=== PATIENT | female | born 1950 | race Caucasian/White ===

== ENCOUNTER 2016-06-05 09:17 | Inpatient (IN) | payer MEDICARE ==
[~2016-06-05] VITALS: Ht 170.2 cm; Wt 111.6 kg
[~2016-06-05 09:17] MED LIST: AMLO5TAB2 PO; ATOR20TA58 PO; BACL10TA PO; CARB200T4 PO; CEPH-264 PO; CLON0.5T3 PO; CLON1TAB3; GLAT20SY SQ; GLAT40SY SQ; HYDR-2666 PO; INDA1.25; INDA1.25 PO; INSU100I17 SQ; INSU100I27 SQ; INSU100V8 SQ; LACO150T PO; LEVO125T5 PO; LOSA100T6 PO; MECL25TA3 PO; OMEP20CA9 PO; OXYB5TAB7 PO; PRED-220 PO
--- NOTE | 2016-06-05 09:31 | PHYS DOC ---
Past Medical History Past Medical History: Anxiety, Diabetes-Type II, GERD, High Cholesterol, Hypertension, Hypothyroid, Other Additional Past Medical Histor: GRAVES, mULTIPLE SCLEROSIS, Past Surgical History: , Other Additional Past Surgical Histo: THYROID RADIATION, shoulder surgery Alcohol Use: Rarely Drug Use: None Adult General Chief Complaint Chief Complaint: COUGH HPI HPI Patient is a 66 year old female who presents with cough and a fever. She states yesterday she started feeling feverish having a dry hacking cough and body aches. She denies any shortness of breath, chest pain or abdominal pain or nausea vomiting. She states she did get the flu shot and a pneumonia shot this year. She states she has been taking Tylenol prior to arrival. Review of Systems Review of Systems Constitutional: Positive for fever [] Eyes: Denies change in visual acuity, redness, or eye pain [] HENT: Denies nasal congestion or sore throat [] Respiratory: Denies any shortness of breath, positive for cough [] Cardiovascular: No additional information not addressed in HPI [] GI: Denies abdominal pain, nausea, vomiting, bloody stools or diarrhea [] : Denies dysuria or hematuria [] Musculoskeletal: Denies back pain or joint pain [] Integument: Denies rash or skin lesions [] Neurologic: Denies headache, focal weakness or sensory changes [] Endocrine: Denies polyuria or polydipsia [] Current Medications Current Medications Current Medications Medications (Trade) Dose Ordered Sig/Emely Start Time Stop Time Status Last Admin Dose Admin Potassium Chloride (KCl Premix 10meq) 100 ml @ 100 mls/hr Q1H 06/05/16 10:00 06/05/16 13:59 06/05/16 11:55 100 MLS/HR Allergies Allergies Allergies Coded Allergies Type Severity Reaction Last Updated Verified No Known Drug Allergies 12/01/13 No Physical Exam Physical Exam Constitutional: Well developed, well nourished, no acute distress, non-toxic appearance. [] HENT: Normocephalic, atraumatic, bilateral external ears normal, oropharynx moist, no oral exudates, nose normal. [] Eyes: PERRLA, EOMI, conjunctiva normal, no discharge. [] Neck: Normal range of motion, no tenderness, supple, no stridor. [] Cardiovascular:Heart rate regular rhythm, no murmur [] Lungs & Thorax: Bilateral breath sounds clear to auscultation [] Abdomen: Bowel sounds normal, soft, no tenderness, no masses, no pulsatile masses. [] Skin: Warm, dry, no erythema, no rash. [] Back: No tenderness, no CVA tenderness. [] Extremities: No tenderness, no cyanosis, no clubbing, ROM intact, no edema. [] Neurologic: Alert and oriented X 3, normal motor function, normal sensory function, no focal deficits noted. [] Psychologic: Affect normal, judgement normal, mood normal. [] Current Patient Data Vital Signs Vital Signs Date Time Temp Pulse Resp B/P Pulse Ox O2 Delivery O2 Flow Rate FiO2 06/05/16 09:17 100.1 84 18 122/58 94 Room Air 100.1 Lab Values Laboratory Tests Test 06/05/16 09:35 White Blood Count 14.3x10^3/uL (4.0-11.0) H Red Blood Count 3.82x10^6/uL (3.50-5.40) Hemoglobin 11.7g/dL (12.0-15.5) L Hematocrit 34.4% (36.0-47.0) L Mean Corpuscular Volume 90fL (79-100) Mean Corpuscular Hemoglobin 31pg (25-35) Mean Corpuscular Hemoglobin Concent 34g/dL (31-37) Red Cell Distribution Width 13.6% (11.5-14.5) Platelet Count 170x10^3/uL (140-400) Neutrophils (%) (Auto) 85% (31-73) H Lymphocytes (%) (Auto) 9% (24-48) L Monocytes (%) (Auto) 5% (0-9) Eosinophils (%) (Auto) 0% (0-3) Basophils (%) (Auto) 1% (0-3) Neutrophils # (Auto) 12.2x10^3uL (1.8-7.7) H Lymphocytes # (Auto) 1.3x10^3/uL (1.0-4.8) Monocytes # (Auto) 0.7x10^3/uL (0.0-1.1) Eosinophils # (Auto) 0.0x10^3/uL (0.0-0.7) Basophils # (Auto) 0.1x10^3/uL (0.0-0.2) Segmented Neutrophils % 80% (35-66) H Band Neutrophils % 12% (0-9) H Lymphocytes % 5% (24-48) L Monocytes % 3% (0-10) Platelet Estimate Adequate (ADEQUATE) Ovalocytes Few Sodium Level 137mmol/L (136-145) Potassium Level 2.7mmol/L (3.5-5.1) *L Chloride Level 99mmol/L (98-107) Carbon Dioxide Level 31mmol/L (21-32) Anion Gap 7 (6-14) Blood Urea Nitrogen 24mg/dL (7-20) H Creatinine 1.1mg/dL (0.6-1.0) H Estimated GFR (Cockcroft-Gault) 49.7 Glucose Level 165mg/dL (70-99) H Calcium Level 8.7mg/dL (8.5-10.1) Total Bilirubin 0.5mg/dL (0.2-1.0) Direct Bilirubin 0.1mg/dL (0.0-0.2) Aspartate Amino Transferase (AST) 53U/L (15-37) H Alanine Aminotransferase (ALT) 60U/L (14-59) H Alkaline Phosphatase 140U/L (46-116) H Total Protein 6.3g/dL (6.4-8.2) L Albumin 2.9g/dL (3.4-5.0) L Influenza Type A Antigen Negative (NEGATIVE) Influenza Type B Antigen Negative (NEGATIVE) Laboratory Tests 06/05/16 09:35 Laboratory Tests 06/05/16 09:35 EKG EKG [] Radiology/Procedures Radiology/Procedures [facility] [address] [place], [place] [id number] IMAGING REPORT Signed PATIENT: ISAIAS LAL ACCOUNT: [id number] : 1950 LOCATION: ER AGE: 66 SEX: F EXAM STATUS: REG ER ORD. PHYSICIAN: BENITA MANCERA MD REASON: fever,cough since yesterday. PROCEDURE: CHEST PA & LATERAL Indication fever cough. Heart size is at the upper limits of normal. There is no congestive heart failure.. There is a focus of increased density lateral to the right heart border, on the PA view, which is probably secondary to overlying soft tissues. Pneumonia is felt less likely. No corresponding abnormality is seen on the lateral image. There is a suggested parenchymal mass in the right upper lobe measuring approximately 2 cm in greatest dimension. Primary malignancy accounting for the appearance is not excluded. Follow-up imaging should be considered. The left lung is clear. There is no pleural fluid. IMPRESSION: Suspect 2 cm parenchymal mass in the right upper lobe. Primary malignancy not excluded. If old films are not available for comparison purposes establishing stability CT should be considered. A definite acute finding in the chest is not seen DICTATED and SIGNED BY: LEXIE LINARES MD DATE: 06/05/16 1107 CC: BENITA MANCERA MD; JESSIE COPELAND Jr, MD ~ Impressions: Hypokalemia Fever Cough Course & Med Decision Making Course & Med Decision Making Pertinent Labs and Imaging studies reviewed. (See chart for details) She presents with a fever, influenza negative, chest x-ray read out as nonacute. Blood cultures obtained and the patient is being admitted for her hypokalemia and pulmonary consultation to the hospitalist. Dragon Disclaimer Dragon Disclaimer This electronic medical record was generated, in whole or in part, using a voice recognition dictation system. Departure Departure Impression: Primary Impression: Hypokalemia Additional Impression: Cough Disposition: ADMITTED INPATIENT Admitting Physician: Rhonda Bills Condition: STABLE Referrals: JESSIE COPELAND Jr, MD (PCP) Problem Qualifiers BENITA MANCERA MD Jun 05, 2016 09:31
[2016-06-05 09:46] LABS: BASO # 0.1 x10^3/uL (0.0-0.2); BASO % 1 % (0-3); EOS % 0 % (0-3); HEMATOCRIT 34.4 % (36.0-47.0); HEMOGLOBIN 11.7 g/dL (12.0-15.5); LYMPH # 1.3 x10^3/uL (1.0-4.8); LYMPH % 9 % (24-48); MEAN CORPUSCULAR HEMOGLOBIN 31 pg (25-35); MEAN CORPUSCULAR HGB CONC 34 g/dL (31-37); MEAN CORPUSCULAR VOLUME 90 fL (79-100); MONO % 5 % (0-9); NEUT % 85 % (31-73); PLATELET COUNT 170 x10^3/uL (140-400); RED BLOOD COUNT 3.82 x10^6/uL (3.50-5.40); RED CELL DISTRIBUTION WIDTH 13.6 % (11.5-14.5); WHITE BLOOD COUNT 14.3 x10^3/uL (4.0-11.0)
[2016-06-05 10:12] LABS: OBC FLU VALID
[2016-06-05 10:13] LABS: ALBUMIN 2.9 g/dL (3.4-5.0); CALCIUM 8.7 mg/dL (8.5-10.1); CREATININE 1.1 mg/dL (0.6-1.0); DIRECT BILIRUBIN 0.1 mg/dL (0.0-0.2); GFR 49.7; TOTAL BILIRUBIN 0.5 mg/dL (0.2-1.0); TOTAL PROTEIN 6.3 g/dL (6.4-8.2)
[2016-06-05 10:14] LABS: POTASSIUM 2.7 mmol/L (3.5-5.1)
[2016-06-05 11:45] LABS: OVALOCYTES FEW; PLT ESTIMATE ADEQUATE (ADEQUATE)
--- NOTE | 2016-06-05 11:45 | RAD ---
Indication fever cough. Heart size is at the upper limits of normal. There is no congestive heart failure.. There is a focus of increased density lateral to the right heart border, on the PA view, which is probably secondary to overlying soft tissues. Pneumonia is felt less likely. No corresponding abnormality is seen on the lateral image. There is a suggested parenchymal mass in the right upper lobe measuring approximately 2 cm in greatest dimension. Primary malignancy accounting for the appearance is not excluded. Follow-up imaging should be considered. The left lung is clear. There is no pleural fluid. IMPRESSION: Suspect 2 cm parenchymal mass in the right upper lobe. Primary malignancy not excluded. If old films are not available for comparison purposes establishing stability CT should be considered. A definite acute finding in the chest is not seen
[2016-06-05] MEDS: POTASSIUM CHLORIDE 10MEQ 100 ML IV SCH ×4 (11:55→17:00)
[2016-06-05] MEDS ORDERED: IBUPROFEN 800 MG TABLET. PO ONE (12:57)
[2016-06-05] MEDS ORDERED: IBUPROFEN 600 MG TABLET. PO ONE (13:00)
--- NOTE | 2016-06-05 14:55 | PDOC ---
Provider Note Provider Note dictated fever, viral syndrome RUL mass/ RLL infiltrate ct chest BAY TURNER MD Jun 05, 2016 14:55
[2016-06-05 15:00] VITALS: BP 150/61
[2016-06-05] MEDS ORDERED: INSU100V13 SQ ×2 (15:21)
--- NOTE | 2016-06-05 15:23 | CONS ---
DATE OF CONSULTATION: ATTENDING PHYSICIAN: Dr. Lyn Garcia. REASON FOR CONSULTATION: Fever, abnormal chest x-ray. HISTORY OF PRESENT ILLNESS: The patient is a 66-year-old female who has no significant history of tobacco use. She has history of multiple sclerosis and Graves disease. She presented to the hospital complaining of high grade fever of 101 degrees Fahrenheit. She had a mild cough which was productive of clear sputum. She had some mild shortness of breath. She was screened for influenza and it was negative. She was seen in the Emergency Room and because of her high grade fever, she was hospitalized. T-max is 101.7 as of now. I have reviewed patient's chest x-ray, which was done today. There is a nodular density in the right upper lobe and there is also mild infiltrates seen in the right lower lobe. There is no old x-ray available in the last 1 year. Consultation requested for further evaluation and management. The patient says that she does not have any weight loss and there is no significant tobacco history. PAST MEDICAL HISTORY: Significant for history of diabetes, anxiety, GERD, dyslipidemia, hypertension, hypothyroidism, Graves disease, and multiple sclerosis. PAST SURGICAL HISTORY: Shoulder surgery. ALLERGIES: None. MEDICATIONS: All reviewed as listed in the MRAD REVIEW OF SYSTEMS: Twelve-point systems obtained. Pertinent positives discussed in my history of present illness, otherwise noncontributory. All systems that were negative were reviewed as well. ALLERGIES: None. FAMILY HISTORY: Noncontributory lungs. SOCIAL HISTORY: Nonsmoker. PHYSICAL EXAMINATION: VITAL SIGNS: On examination, T-max of 101.7, blood pressure was markedly high 197/77, pulse ox 98% on 2 liters. NECK: Supple. LUNGS: Show diminished breath sounds. No crackles, no wheezes. CARDIOVASCULAR: Regular rate and rhythm. ABDOMEN: Soft, obese. EXTREMITIES: There is a soft cast on the left foot and trace pitting edema on the right. LABORATORY DATA: Reviewed. Influenza screen is negative. Chemistries with a potassium of 2.7, BUN 24, creatinine 1.1. White cell count 14.3. IMPRESSION: 1. High grade fever. Suspect most likely viral syndrome. 2. Abnormal chest x-ray with a nodule in the right upper lobe and hazy infiltrate in the right lower lobe. No old x-rays available for comparison. She is a nonsmoker with no constitutional symptoms of malignancy. We will obtain noncontrast CT chest for further evaluation. 3. Influenza negative. 4. Hypokalemia, being corrected. 5. Leukocytosis, would consider adding empiric antibiotic and review CT chest findings. 6. Mild renal insufficiency, suspect due to dehydration. RECOMMENDATIONS: 1. Continue with present oxygen. 2. Add empiric antibiotics. 3. Follow blood culture results. 4. CT chest without contrast to better assess for pneumonia in the right lower lobe and mass in the right upper lobe. 5. Bronchodilators p.r.n. 6. Follow potassium levels per PCP. 7. Discussed with patient's mother and we will follow along with you. Further recommendations to follow. BAY TURNER MD DR: LINDSEY/amee JOB#: [id number] / [id number] FRANCISCO
--- NOTE | 2016-06-05 16:33 | RAD ---
Chest CT without contrast Clinical indications: Lung mass. Technique: Noncontrast helical CT scanning of the chest was performed. Without contrast, the sensitivity to detect organ pathology is decreased. PQRS Compliance Statement: One or more of the following individualized dose reduction techniques were utilized for this examination: 1. Automated exposure control 2. Adjustment of the mA and/or kV according to patient size 3. Use of iterative reconstruction technique Comparison: Chest x-ray dated June 05, 2016. No previous chest CT available. Findings: No axillary lymphadenopathy is seen. There is an azygos lymph node measuring 8 mm. Evaluation for hilar lymphadenopathy is difficult without IV contrast. There is a mass or nodular infiltrate within the medial aspect of the right upper lobe. It extends along the medial aspect of the right upper lobe and the lateral border of the upper right mediastinum to the right hilum. Therefore, measurements are difficult without IV contrast to separate from hilar vessels. However, it measures at least 3.9 cm in vertical dimension and 2.6 cm in transverse dimension and 2.5 cm in AP dimension. There is a spiculated mass within the superior segment of the right lower lobe which measures 2.0 cm. There is a consolidative infiltrate with air bronchograms involving the anterior basal segment of the right lower lobe extending to the fissure. Small ill-defined subcentimeter lung nodules are seen within the lateral aspect of the right upper lobe seen best on images 16 through 19. The left lung field is clear. No pleural effusion or pneumothorax is seen. The proximal bronchial tree is patent. No focal aneurysmal dilatation of the thoracic aorta is seen. The heart size is at the upper limits of normal. No significant pericardial effusion is seen. Calcified atheromatous disease of the coronary arteries is evident. No adrenal mass is seen. No osteolytic process is seen. IMPRESSION: Nodular lung infiltrate or mass within the medial aspect of the right upper lobe abutting against the lateral aspect of the upper right mediastinum extending to the right hilum. This could represent a neoplasm or infection. Small subcentimeter lung nodules are seen laterally within the right upper lobe. 2 cm spiculated lesion within the superior segment of the right lower lobe which may represent a neoplasm. Air bronchograms with infiltrate present within the anterior basal segment of the right lower lobe adjacent to the fissure. This may represent pneumonia. No significantly enlarged thoracic lymphadenopathy is seen. Calcified atheromatous disease of the coronary arteries.
[2016-06-05] MEDS ORDERED: INSULIN ASPART 300 UNITS/3 ML INSULN.PEN SQ ONE (16:45)
[2016-06-05] MEDS ORDERED: MECLIZINE HCL 12.5 MG TABLET. PO PRN (16:45)
[2016-06-05] MEDS ORDERED: DEXTROSE 50% 25 GM / 50ML DISP.SYRIN. IV PRN (16:45)
[2016-06-05] MEDS ORDERED: ACETAMINOPHEN 650 MG SUPP.RECT. PR PRN (16:45)
[2016-06-05] MEDS: ACETAMINOPHEN 325 MG TABLET. PO PRN (17:39)
[2016-06-05] MEDS: COPAXONE 40 MG SQ SCH (17:40)
[2016-06-05] MEDS: CEFTRIAXONE SODIUM 1 GM in IV NORMAL SALINE 50ML 50 ML IV SCH (17:42)
[2016-06-05] MEDS: INSULIN ASPART 300 UNITS/3 ML INSULN.PEN SQ SCH (17:42)
[2016-06-05 19:00] VITALS: BP 110/42
[2016-06-05 19:53] LABS: BILIRUBIN,URINE NEGATIVE (NEG); GLUCOSE,URINE 500 mg/dL (NEG); NITRITE,URINE NEGATIVE (NEG); PH,URINE 5.5; PROTEIN,URINE 30 mg/dL (NEG-TRACE)
[2016-06-05 19:59] LABS: BACTERIA,URINE MANY /HPF (0-FEW); SQUAMOUS EPITHELIAL CELL,UR FEW /LPF; WBC,URINE 20-40 /HPF (0-4)
[2016-06-05 20:14] VITALS: BP 150/61
[2016-06-05] MEDS ORDERED: DOCUSATE SODIUM 100 MG CAPSULE PO PRN (20:37)
[2016-06-05] MEDS ORDERED: INSULIN DETEMIR 300 UNITS/3 ML INSULN.PEN. SQ SCH (21:00)
[2016-06-05] MEDS: ATORVASTATIN CALCIUM 20 MG TABLET PO SCH (22:10)
[2016-06-05] MEDS: OXYBUTYNIN CHLORIDE 5 MG TABLET PO SCH (22:10)
[2016-06-05] MEDS: BACLOFEN 10 MG TABLET PO SCH (22:10)
[2016-06-05] MEDS: CLONAZEPAM 0.5 MG TABLET PO SCH (22:10)
--- NOTE | 2016-06-05 22:58 | HP ---
ADMIT DATE: 06/05/2016 CHIEF COMPLAINT: Cough. HISTORY OF PRESENT ILLNESS: The patient is a pleasant 66-year-old female who has multiple medical problems including multiple scoliosis and Graves disease. She presents with cough and fevers that has been occurring for a day or so. She tried increasing her home meds, but that was not helping. I have discussed the case with the ER physician. We will admit the patient and consult Dr. Lezama. It should be noted that she is hypokalemic with potassium of 2.7. PAST MEDICAL HISTORY: Multiple scoliosis, Graves, diabetes, hyperlipidemia, hypertension, hypothyroidism, radiation to thyroid, shoulder surgery. ALLERGIES: None. FAMILY HISTORY: Hypertension. SOCIAL HISTORY: She does not drink, smoke or take drugs. MEDICATIONS: Reviewed, please refer to the MRAD. REVIEW OF SYSTEMS: GENERAL: She complains of weakness. SKIN: No bruising, hair changes or rashes. EYES: No blurred, double or loss of vision. NOSE AND THROAT: No history of nosebleeds, hoarseness or sore throat. HEART: No history of palpitations, chest pain or shortness of breath on exertion. LUNGS: She complains of cough. GASTROINTESTINAL: Denies changes in appetite, nausea, vomiting, diarrhea or constipation. GENITOURINARY: No history of frequency, urgency, hesitancy or nocturia. NEUROLOGIC: Denies history of numbness, tingling, tremor or weakness. PSYCHIATRIC: No history of panic, anxiety or depression. ENDOCRINE: No history of heat or cold intolerance, polyuria or polydipsia. EXTREMITIES: Denies muscle weakness, joint pain, pain on walking or stiffness. PHYSICAL EXAMINATION: VITAL SIGNS: Temperature 101.7, pulse ranging from 80-105, respirations 18, blood pressure ranging from ____ systolically. GENERAL: She is alert, cooperative. HEART: Normal S1, S2. LUNGS: Coarse with some wheezing. ABDOMEN: Soft, positive bowel sounds. EXTREMITIES: 1+ edema. SKIN: No rashes. PSYCHIATRIC: She is depressed. VASCULAR: Good capillary refill. ENDOCRINE: No thyromegaly. LYMPHATICS: No cervical nodes. HEMATOPOIETIC: No bruising. LABORATORY DATA: White count 14, hemoglobin 11.7, platelets 170. Electrolytes: Sodium 137, potassium 2.7, chloride 99, bicarbonate 31, BUN 24, creatinine 1.1, glucose 165. AST a little high at 53, ALT little high at 60, alkaline phosphatase a little high at 140, total protein 6.3. ASSESSMENT AND PLAN: Fever, cough, weakness, suspect viral syndrome versus possible impending flu. The patient has been admitted. Will consult Dr. Lezama. IV hydration, p.r.n. Tylenol, continue home medicines. We will consider IV antibiotics if Dr. Lezama agrees, bronchodilators, p.r.n. oxygen, replace her potassium, frequent labs. PROGNOSIS: Guarded. ERMELINDAL Perla RAMSAY DO DR: MATTHEW/amee JOB#: [id number] / [id number]
[2016-06-05 23:00] VITALS: BP 125/46
[2016-06-06 03:30] VITALS: BP 128/55
[2016-06-06 04:52] LABS: BASO % 0 % (0-3); EOS % 0 % (0-3); HEMATOCRIT 33.2 % (36.0-47.0); HEMOGLOBIN 10.8 g/dL (12.0-15.5); LYMPH # 2.2 x10^3/uL (1.0-4.8); LYMPH % 12 % (24-48); MEAN CORPUSCULAR HEMOGLOBIN 30 pg (25-35); MEAN CORPUSCULAR HGB CONC 33 g/dL (31-37); MEAN CORPUSCULAR VOLUME 92 fL (79-100); MONO % 9 % (0-9); NEUT % 79 % (31-73); PLATELET COUNT 161 x10^3/uL (140-400); RED BLOOD COUNT 3.62 x10^6/uL (3.50-5.40); RED CELL DISTRIBUTION WIDTH 13.7 % (11.5-14.5); WHITE BLOOD COUNT 19.2 x10^3/uL (4.0-11.0)
[2016-06-06 05:32] LABS: ALBUMIN 2.6 g/dL (3.4-5.0); ALBUMIN/GLOBULIN RATIO 0.7 (1.0-1.7); CALCIUM 8.6 mg/dL (8.5-10.1); CREATININE 1.1 mg/dL (0.6-1.0); GFR 49.7; TOTAL BILIRUBIN 0.5 mg/dL (0.2-1.0); TOTAL PROTEIN 6.1 g/dL (6.4-8.2)
[2016-06-06 05:44] LABS: POTASSIUM 2.8 mmol/L (3.5-5.1)
[2016-06-06] MEDS: LEVOTHYROXINE 125 MCG TABLET PO SCH (06:23)
[2016-06-06 07:00] VITALS: BP 138/44
[2016-06-06] MEDS: POTASSIUM CHLORIDE 10MEQ 100 ML IV SCH ×4 (08:20→20:51)
[2016-06-06] MEDS: PANTOPRAZOLE 40 MG TABLET. PO SCH (08:21)
[2016-06-06] MEDS: INSULIN DETEMIR 300 UNITS/3 ML INSULN.PEN. SQ SCH (08:27)
[2016-06-06] MEDS: INSULIN ASPART 300 UNITS/3 ML INSULN.PEN SQ SCH ×7 (08:27→20:58)
[2016-06-06 09:19] LABS: % EOS 1 % (0-5); PLT ESTIMATE ADEQUATE (ADEQUATE)
[2016-06-06] MEDS: CLONAZEPAM 0.5 MG TABLET PO SCH ×3 (09:51→20:53)
[2016-06-06] MEDS: OXYBUTYNIN CHLORIDE 5 MG TABLET PO SCH ×2 (09:51→20:53)
[2016-06-06] MEDS: DOCUSATE SODIUM 100 MG CAPSULE PO SCH (09:52)
[2016-06-06] MEDS: AMLODIPINE BESYLATE 5 MG TABLET PO SCH (09:52)
[2016-06-06] MEDS: LOSARTAN POTASSIUM 50 MG TABLET. PO SCH (09:52)
[2016-06-06] MEDS: BACLOFEN 10 MG TABLET PO SCH ×3 (09:52→20:54)
[2016-06-06] MEDS: INDAPAMIDE 2.5 MG TABLET PO SCH (09:53)
[2016-06-06 11:09] VITALS: BP 126/50
[2016-06-06] MEDS: ACETAMINOPHEN 325 MG TABLET. PO PRN (13:14)
[2016-06-06] MEDS: GUAIFENESIN ER 600 MG TABLET.ER PO SCH ×2 (13:14→20:53)
--- NOTE | 2016-06-06 13:38 | PDOC ---
PULMONARY PROGRESS NOTES Subjective Feeling improved, no complaints. Vitals Vital Signs Date Time Temp Pulse Resp B/P Pulse Ox O2 Delivery O2 Flow Rate FiO2 06/06/16 11:09 98.0 76 18 126/50 98 Nasal Cannula 0.5 98.0 ROS: No Nausea, No Chest Pain, No Abdominal Pain General: Alert, Oriented X4, No acute distress Lungs: Clear, Crackles, Other (Decreased BS in base ) Cardiovascular: S1, S2 Abdomen: Soft, Non-tender Neuro Exam: Alert, Oriented, Normal Speech Extremities: No Edema Skin: Warm, Dry Labs Laboratory Tests Test 06/05/16 09:35 06/05/16 12:55 06/05/16 16:00 06/05/16 18:00 White Blood Count 14.3x10^3/uL (4.0-11.0) Red Blood Count 3.82x10^6/uL (3.50-5.40) Hemoglobin 11.7g/dL (12.0-15.5) Hematocrit 34.4% (36.0-47.0) Mean Corpuscular Volume 90fL (79-100) Mean Corpuscular Hemoglobin 31pg (25-35) Mean Corpuscular Hemoglobin Concent 34g/dL (31-37) Red Cell Distribution Width 13.6% (11.5-14.5) Platelet Count 170x10^3/uL (140-400) Neutrophils (%) (Auto) 85% (31-73) Lymphocytes (%) (Auto) 9% (24-48) Monocytes (%) (Auto) 5% (0-9) Eosinophils (%) (Auto) 0% (0-3) Basophils (%) (Auto) 1% (0-3) Neutrophils # (Auto) 12.2x10^3uL (1.8-7.7) Lymphocytes # (Auto) 1.3x10^3/uL (1.0-4.8) Monocytes # (Auto) 0.7x10^3/uL (0.0-1.1) Eosinophils # (Auto) 0.0x10^3/uL (0.0-0.7) Basophils # (Auto) 0.1x10^3/uL (0.0-0.2) Segmented Neutrophils % 80% (35-66) Band Neutrophils % 12% (0-9) Lymphocytes % 5% (24-48) Monocytes % 3% (0-10) Platelet Estimate Adequate (ADEQUATE) Ovalocytes Few Sodium Level 137mmol/L (136-145) Potassium Level 2.7mmol/L (3.5-5.1) Chloride Level 99mmol/L (98-107) Carbon Dioxide Level 31mmol/L (21-32) Anion Gap 7 (6-14) Blood Urea Nitrogen 24mg/dL (7-20) Creatinine 1.1mg/dL (0.6-1.0) Estimated GFR (Cockcroft-Gault) 49.7 Glucose Level 165mg/dL (70-99) Calcium Level 8.7mg/dL (8.5-10.1) Total Bilirubin 0.5mg/dL (0.2-1.0) Direct Bilirubin 0.1mg/dL (0.0-0.2) Aspartate Amino Transf (AST/SGOT) 53U/L (15-37) Alanine Aminotransferase (ALT/SGPT) 60U/L (14-59) Alkaline Phosphatase 140U/L (46-116) Total Protein 6.3g/dL (6.4-8.2) Albumin 2.9g/dL (3.4-5.0) Influenza Type A Antigen Negative (NEGATIVE) Influenza Type B Antigen Negative (NEGATIVE) Glucose (Fingerstick) 111mg/dL (70-99) 375mg/dL (70-99) Urine Collection Type Unknown Urine Color Yellow Urine Clarity Turbid Urine pH 5.5 Urine Specific Pitcher 1.020 Urine Protein 30mg/dL (NEG-TRACE) Urine Glucose (UA) 500mg/dL (NEG) Urine Ketones (Stick) Tracemg/dL (NEG) Urine Blood Large (NEG) Urine Nitrite Negative (NEG) Urine Bilirubin Negative (NEG) Urine Urobilinogen Dipstick 1.0mg/dL (0.2 mg/dL) Urine Leukocyte Esterase Large (NEG) Urine RBC 3-5/HPF (0-2) Urine WBC 20-40/HPF (0-4) Urine Squamous Epithelial Cells Few/LPF Urine Bacteria Many/HPF (0-FEW) Urine Mucus Slight/LPF Test 06/05/16 20:49 06/06/16 04:00 06/06/16 08:03 06/06/16 11:22 Glucose (Fingerstick) 260mg/dL (70-99) 231mg/dL (70-99) 200mg/dL (70-99) White Blood Count 19.2x10^3/uL (4.0-11.0) Red Blood Count 3.62x10^6/uL (3.50-5.40) Hemoglobin 10.8g/dL (12.0-15.5) Hematocrit 33.2% (36.0-47.0) Mean Corpuscular Volume 92fL (79-100) Mean Corpuscular Hemoglobin 30pg (25-35) Mean Corpuscular Hemoglobin Concent 33g/dL (31-37) Red Cell Distribution Width 13.7% (11.5-14.5) Platelet Count 161x10^3/uL (140-400) Neutrophils (%) (Auto) 79% (31-73) Lymphocytes (%) (Auto) 12% (24-48) Monocytes (%) (Auto) 9% (0-9) Eosinophils (%) (Auto) 0% (0-3) Basophils (%) (Auto) 0% (0-3) Neutrophils # (Auto) 15.1x10^3uL (1.8-7.7) Lymphocytes # (Auto) 2.2x10^3/uL (1.0-4.8) Monocytes # (Auto) 1.7x10^3/uL (0.0-1.1) Eosinophils # (Auto) 0.1x10^3/uL (0.0-0.7) Basophils # (Auto) 0.0x10^3/uL (0.0-0.2) Segmented Neutrophils % 60% (35-66) Band Neutrophils % 11% (0-9) Lymphocytes % 14% (24-48) Monocytes % 14% (0-10) Eosinophils % 1% (0-5) Platelet Estimate Adequate (ADEQUATE) Sodium Level 134mmol/L (136-145) Potassium Level 2.8mmol/L (3.5-5.1) Chloride Level 97mmol/L (98-107) Carbon Dioxide Level 30mmol/L (21-32) Anion Gap 7 (6-14) Blood Urea Nitrogen 28mg/dL (7-20) Creatinine 1.1mg/dL (0.6-1.0) Estimated GFR (Cockcroft-Gault) 49.7 BUN/Creatinine Ratio 25 (6-20) Glucose Level 247mg/dL (70-99) Calcium Level 8.6mg/dL (8.5-10.1) Magnesium Level 2.2mg/dL (1.8-2.4) Total Bilirubin 0.5mg/dL (0.2-1.0) Aspartate Amino Transf (AST/SGOT) 65U/L (15-37) Alanine Aminotransferase (ALT/SGPT) 87U/L (14-59) Alkaline Phosphatase 172U/L (46-116) Total Protein 6.1g/dL (6.4-8.2) Albumin 2.6g/dL (3.4-5.0) Albumin/Globulin Ratio 0.7 (1.0-1.7) Laboratory Tests Test 06/05/16 16:00 06/05/16 18:00 06/05/16 20:49 06/06/16 04:00 Glucose (Fingerstick) 375mg/dL (70-99) 260mg/dL (70-99) Urine Collection Type Unknown Urine Color Yellow Urine Clarity Turbid Urine pH 5.5 Urine Specific Pitcher 1.020 Urine Protein 30mg/dL (NEG-TRACE) Urine Glucose (UA) 500mg/dL (NEG) Urine Ketones (Stick) Tracemg/dL (NEG) Urine Blood Large (NEG) Urine Nitrite Negative (NEG) Urine Bilirubin Negative (NEG) Urine Urobilinogen Dipstick 1.0mg/dL (0.2 mg/dL) Urine Leukocyte Esterase Large (NEG) Urine RBC 3-5/HPF (0-2) Urine WBC 20-40/HPF (0-4) Urine Squamous Epithelial Cells Few/LPF Urine Bacteria Many/HPF (0-FEW) Urine Mucus Slight/LPF White Blood Count 19.2x10^3/uL (4.0-11.0) Red Blood Count 3.62x10^6/uL (3.50-5.40) Hemoglobin 10.8g/dL (12.0-15.5) Hematocrit 33.2% (36.0-47.0) Mean Corpuscular Volume 92fL (79-100) Mean Corpuscular Hemoglobin 30pg (25-35) Mean Corpuscular Hemoglobin Concent 33g/dL (31-37) Red Cell Distribution Width 13.7% (11.5-14.5) Platelet Count 161x10^3/uL (140-400) Neutrophils (%) (Auto) 79% (31-73) Lymphocytes (%) (Auto) 12% (24-48) Monocytes (%) (Auto) 9% (0-9) Eosinophils (%) (Auto) 0% (0-3) Basophils (%) (Auto) 0% (0-3) Neutrophils # (Auto) 15.1x10^3uL (1.8-7.7) Lymphocytes # (Auto) 2.2x10^3/uL (1.0-4.8) Monocytes # (Auto) 1.7x10^3/uL (0.0-1.1) Eosinophils # (Auto) 0.1x10^3/uL (0.0-0.7) Basophils # (Auto) 0.0x10^3/uL (0.0-0.2) Segmented Neutrophils % 60% (35-66) Band Neutrophils % 11% (0-9) Lymphocytes % 14% (24-48) Monocytes % 14% (0-10) Eosinophils % 1% (0-5) Platelet Estimate Adequate (ADEQUATE) Sodium Level 134mmol/L (136-145) Potassium Level 2.8mmol/L (3.5-5.1) Chloride Level 97mmol/L (98-107) Carbon Dioxide Level 30mmol/L (21-32) Anion Gap 7 (6-14) Blood Urea Nitrogen 28mg/dL (7-20) Creatinine 1.1mg/dL (0.6-1.0) Estimated GFR (Cockcroft-Gault) 49.7 BUN/Creatinine Ratio 25 (6-20) Glucose Level 247mg/dL (70-99) Calcium Level 8.6mg/dL (8.5-10.1) Magnesium Level 2.2mg/dL (1.8-2.4) Total Bilirubin 0.5mg/dL (0.2-1.0) Aspartate Amino Transf (AST/SGOT) 65U/L (15-37) Alanine Aminotransferase (ALT/SGPT) 87U/L (14-59) Alkaline Phosphatase 172U/L (46-116) Total Protein 6.1g/dL (6.4-8.2) Albumin 2.6g/dL (3.4-5.0) Albumin/Globulin Ratio 0.7 (1.0-1.7) Test 06/06/16 08:03 06/06/16 11:22 Glucose (Fingerstick) 231mg/dL (70-99) 200mg/dL (70-99) Medications Active Scripts Medications Dose Route/Sig Days Date Category Dose Instructions Levemir (Insulin Detemir) 100 Unit/1 Ml Vial 6 Unit SQ HS 06/05/16 Reported Levemir (Insulin Detemir) 100 Unit/1 Ml Vial 10 Unit SQ DAILY08 06/05/16 Reported Hydrocodone-Apap 5-325 (Hydrocodone Bit/Acetaminophen) 1 Each Tablet 1 Tab PO PRN Q6HRS PRN 05/12/16 Rx Indapamide 1.25 Mg Tablet 05/08/16 Reported Indapamide 1.25 Mg Tablet 05/08/16 Reported Indapamide 1.25 Mg Tablet 05/08/16 Reported Indapamide 1.25 Mg Tablet 05/08/16 Reported Clonazepam 1 Mg Tablet 05/08/16 Reported Copaxone (Glatiramer Acetate) 40 Mg/1 Ml Syringe 40 Mg SQ 3X/WEEK 04/20/16 Reported Indapamide 1.25 Mg Tablet 1 Tab PO DAILY 11/26/15 Reported Omeprazole 20 Mg Capsule.dr 1 Cap PO DAILY 09/18/15 Reported Levemir Flextouch (Insulin Detemir) 100 Unit/1 Ml Insuln.pen 14 Unit SQ HS 09/17/15 Reported Hydrocodone-Apap 5-325 (Hydrocodone Bit/Acetaminophen) 1 Each Tablet 1 Tab PO PRN Q6HRS PRN 09/17/15 Reported Meclizine Hcl 25 Mg Tablet 1 Tab PO PRN TID 09/17/15 Reported Clonazepam 0.5 Mg Tablet 0.5 Mg PO TID 09/17/15 Reported Baclofen 10 Mg Tablet 5 Mg PO TID 09/19/14 Reported Copaxone (Glatiramer Acetate) 20 Mg/1 Ml Syringekit 20 Mg SQ 09/19/14 Reported Amlodipine Besylate 5 Mg Tablet 5 Mg PO DAILY 12/01/13 Reported Oxybutynin Chloride 5 Mg Tablet 5 Mg PO BID 12/01/13 Reported Novolog Flexpen (Insulin Aspart) 100 Unit/1 Ml Insuln.pen 100 Unit SQ 12/01/13 Reported 8 units tid ac Atorvastatin Calcium 20 Mg Tablet 20 Mg PO DAILY 12/01/13 Reported Losartan Potassium 100 Mg Tablet 50 Mg PO DAILY 12/01/13 Reported Levothyroxine Sodium 125 Mcg Tablet 125 Mcg PO DAILYAC 12/01/[address] Chest : 06/05/16: Findings: No axillary lymphadenopathy is seen. There is an azygos lymph node measuring 8 mm. Evaluation for hilar lymphadenopathy is difficult without IV contrast. There is a mass or nodular infiltrate within the medial aspect of the right upper lobe. It extends along the medial aspect of the right upper lobe and the lateral border of the upper right mediastinum to the right hilum. Therefore, measurements are difficult without IV contrast to separate from hilar vessels. However, it measures at least 3.9 cm in vertical dimension and 2.6 cm in transverse dimension and 2.5 cm in AP dimension. There is a spiculated mass within the superior segment of the right lower lobe which measures 2.0 cm. There is a consolidative infiltrate with air bronchograms involving the anterior basal segment of the right lower lobe extending to the fissure. Small ill-defined subcentimeter lung nodules are seen within the lateral aspect of the right upper lobe seen best on images 16 through 19. The left lung field is clear. No pleural effusion or pneumothorax is seen. The proximal bronchial tree is patent. No focal aneurysmal dilatation of the thoracic aorta is seen. The heart size is at the upper limits of normal. No significant pericardial effusion is seen. Calcified atheromatous disease of the coronary arteries is evident. No adrenal mass is seen. No osteolytic process is seen. Impression . IMPRESSION: 1. High grade fever. Suspect most likely viral syndrome. 2. Consolidative pneumonia RLL 3. Right Lung Mass/Infiltrate - 3.9x2.6x2.5 4. Spiculated Lung Mass : 2.0 cm in RLL 5. Electrolyte Abnormalities 5. Leukocytosis, would consider adding empiric antibiotic and review CT chest findings. 6. Mild renal insufficiency, suspect due to dehydration. Plan . 1. Continue supportive care 2. Continue Oxygen therapy - wean/titrate as able 3. Continue Abx : Rocephin 4. Follow blood culture results 5. CT with consolidative pnuemonia, nodular infiltrate/mass, and a RLL spiculated nodule - would plan on Bronchoscopy & Bx wednesday. 5. Bronchodilators p.r.n. 6. Follow potassium levels per PCP. JASMYNE CAMPUZANO MD Jun 06, 2016 13:37
--- NOTE | 2016-06-06 14:26 | PDOC ---
PROGRESS NOTES Chief Complaint Chief Complaint cough, fever 1. High grade fever, 2/2 bronchitis, virus vs. bacteria 2. right upper lung infiltrate CAP, right lower lob 2c nodule 3. Influenza negative. 4. Hypokalemia 5. sepsis with pna, Leukocytosis 6. Mild renal insufficiency, suspect due to dehydration. 7. MS 8. GRAves 9. dm1 10. HTN 11. HYPOthyroidism plan; 1. fu with pulm 2 . on ceftriaxone 3. add duoneb, altuterol, cough meds 4. check mag, normal replete K 5. increase insulin levemir to 10u bid, aspart , ssi dvt ppx History of Present Illness History of Present Illness cough a lot today ct + lung nodule right lower lob 2cm right upper pna low K NO uti SYMPtom Vitals Vitals Vital Signs Date Time Temp Pulse Resp B/P Pulse Ox O2 Delivery O2 Flow Rate FiO2 06/06/16 11:09 98.0 76 18 126/50 98 Nasal Cannula 0.5 98.0 Physical Exam General: Alert, Oriented X3, Cooperative Heart: Regular rate, Normal S1, Normal S2 Lungs: Clear, Crackles, Other (Decreased BS in base ) Abdomen: Normal bowel sounds, Soft Extremities: No clubbing, No cyanosis Skin: No rashes Labs LABS Laboratory Tests Test 06/05/16 16:00 06/05/16 18:00 06/05/16 20:49 06/06/16 04:00 Glucose (Fingerstick) 375mg/dL (70-99) 260mg/dL (70-99) Urine Collection Type Unknown Urine Color Yellow Urine Clarity Turbid Urine pH 5.5 Urine Specific [place] 1.020 Urine Protein 30mg/dL (NEG-TRACE) Urine Glucose (UA) 500mg/dL (NEG) Urine Ketones (Stick) Tracemg/dL (NEG) Urine Blood Large (NEG) Urine Nitrite Negative (NEG) Urine Bilirubin Negative (NEG) Urine Urobilinogen Dipstick 1.0mg/dL (0.2 mg/dL) Urine Leukocyte Esterase Large (NEG) Urine RBC 3-5/HPF (0-2) Urine WBC 20-40/HPF (0-4) Urine Squamous Epithelial Cells Few/LPF Urine Bacteria Many/HPF (0-FEW) Urine Mucus Slight/LPF White Blood Count 19.2x10^3/uL (4.0-11.0) Red Blood Count 3.62x10^6/uL (3.50-5.40) Hemoglobin 10.8g/dL (12.0-15.5) Hematocrit 33.2% (36.0-47.0) Mean Corpuscular Volume 92fL (79-100) Mean Corpuscular Hemoglobin 30pg (25-35) Mean Corpuscular Hemoglobin Concent 33g/dL (31-37) Red Cell Distribution Width 13.7% (11.5-14.5) Platelet Count 161x10^3/uL (140-400) Neutrophils (%) (Auto) 79% (31-73) Lymphocytes (%) (Auto) 12% (24-48) Monocytes (%) (Auto) 9% (0-9) Eosinophils (%) (Auto) 0% (0-3) Basophils (%) (Auto) 0% (0-3) Neutrophils # (Auto) 15.1x10^3uL (1.8-7.7) Lymphocytes # (Auto) 2.2x10^3/uL (1.0-4.8) Monocytes # (Auto) 1.7x10^3/uL (0.0-1.1) Eosinophils # (Auto) 0.1x10^3/uL (0.0-0.7) Basophils # (Auto) 0.0x10^3/uL (0.0-0.2) Segmented Neutrophils % 60% (35-66) Band Neutrophils % 11% (0-9) Lymphocytes % 14% (24-48) Monocytes % 14% (0-10) Eosinophils % 1% (0-5) Platelet Estimate Adequate (ADEQUATE) Sodium Level 134mmol/L (136-145) Potassium Level 2.8mmol/L (3.5-5.1) Chloride Level 97mmol/L (98-107) Carbon Dioxide Level 30mmol/L (21-32) Anion Gap 7 (6-14) Blood Urea Nitrogen 28mg/dL (7-20) Creatinine 1.1mg/dL (0.6-1.0) Estimated GFR (Cockcroft-Gault) 49.7 BUN/Creatinine Ratio 25 (6-20) Glucose Level 247mg/dL (70-99) Calcium Level 8.6mg/dL (8.5-10.1) Magnesium Level 2.2mg/dL (1.8-2.4) Total Bilirubin 0.5mg/dL (0.2-1.0) Aspartate Amino Transf (AST/SGOT) 65U/L (15-37) Alanine Aminotransferase (ALT/SGPT) 87U/L (14-59) Alkaline Phosphatase 172U/L (46-116) Total Protein 6.1g/dL (6.4-8.2) Albumin 2.6g/dL (3.4-5.0) Albumin/Globulin Ratio 0.7 (1.0-1.7) Test 06/06/16 08:03 06/06/16 11:22 Glucose (Fingerstick) 231mg/dL (70-99) 200mg/dL (70-99) Review of Systems Review of Systems no fever ,chills, sob or chest pain Assessment and Plan Assessmemt and Plan Problems Medical Problems: (1) Cough Status: Acute (2) Hypokalemia Status: Acute Problems: Comment Review of Relevant I have reviewed the following items estrella (where applicable) has been applied. Labs Laboratory Tests Test 06/05/16 09:35 06/05/16 12:55 06/05/16 16:00 06/05/16 18:00 White Blood Count 14.3x10^3/uL (4.0-11.0) Red Blood Count 3.82x10^6/uL (3.50-5.40) Hemoglobin 11.7g/dL (12.0-15.5) Hematocrit 34.4% (36.0-47.0) Mean Corpuscular Volume 90fL (79-100) Mean Corpuscular Hemoglobin 31pg (25-35) Mean Corpuscular Hemoglobin Concent 34g/dL (31-37) Red Cell Distribution Width 13.6% (11.5-14.5) Platelet Count 170x10^3/uL (140-400) Neutrophils (%) (Auto) 85% (31-73) Lymphocytes (%) (Auto) 9% (24-48) Monocytes (%) (Auto) 5% (0-9) Eosinophils (%) (Auto) 0% (0-3) Basophils (%) (Auto) 1% (0-3) Neutrophils # (Auto) 12.2x10^3uL (1.8-7.7) Lymphocytes # (Auto) 1.3x10^3/uL (1.0-4.8) Monocytes # (Auto) 0.7x10^3/uL (0.0-1.1) Eosinophils # (Auto) 0.0x10^3/uL (0.0-0.7) Basophils # (Auto) 0.1x10^3/uL (0.0-0.2) Segmented Neutrophils % 80% (35-66) Band Neutrophils % 12% (0-9) Lymphocytes % 5% (24-48) Monocytes % 3% (0-10) Platelet Estimate Adequate (ADEQUATE) Ovalocytes Few Sodium Level 137mmol/L (136-145) Potassium Level 2.7mmol/L (3.5-5.1) Chloride Level 99mmol/L (98-107) Carbon Dioxide Level 31mmol/L (21-32) Anion Gap 7 (6-14) Blood Urea Nitrogen 24mg/dL (7-20) Creatinine 1.1mg/dL (0.6-1.0) Estimated GFR (Cockcroft-Gault) 49.7 Glucose Level 165mg/dL (70-99) Calcium Level 8.7mg/dL (8.5-10.1) Total Bilirubin 0.5mg/dL (0.2-1.0) Direct Bilirubin 0.1mg/dL (0.0-0.2) Aspartate Amino Transf (AST/SGOT) 53U/L (15-37) Alanine Aminotransferase (ALT/SGPT) 60U/L (14-59) Alkaline Phosphatase 140U/L (46-116) Total Protein 6.3g/dL (6.4-8.2) Albumin 2.9g/dL (3.4-5.0) Influenza Type A Antigen Negative (NEGATIVE) Influenza Type B Antigen Negative (NEGATIVE) Glucose (Fingerstick) 111mg/dL (70-99) 375mg/dL (70-99) Urine Collection Type Unknown Urine Color Yellow Urine Clarity Turbid Urine pH 5.5 Urine Specific [place] 1.020 Urine Protein 30mg/dL (NEG-TRACE) Urine Glucose (UA) 500mg/dL (NEG) Urine Ketones (Stick) Tracemg/dL (NEG) Urine Blood Large (NEG) Urine Nitrite Negative (NEG) Urine Bilirubin Negative (NEG) Urine Urobilinogen Dipstick 1.0mg/dL (0.2 mg/dL) Urine Leukocyte Esterase Large (NEG) Urine RBC 3-5/HPF (0-2) Urine WBC 20-40/HPF (0-4) Urine Squamous Epithelial Cells Few/LPF Urine Bacteria Many/HPF (0-FEW) Urine Mucus Slight/LPF Test 06/05/16 20:49 06/06/16 04:00 06/06/16 08:03 06/06/16 11:22 Glucose (Fingerstick) 260mg/dL (70-99) 231mg/dL (70-99) 200mg/dL (70-99) White Blood Count 19.2x10^3/uL (4.0-11.0) Red Blood Count 3.62x10^6/uL (3.50-5.40) Hemoglobin 10.8g/dL (12.0-15.5) Hematocrit 33.2% (36.0-47.0) Mean Corpuscular Volume 92fL (79-100) Mean Corpuscular Hemoglobin 30pg (25-35) Mean Corpuscular Hemoglobin Concent 33g/dL (31-37) Red Cell Distribution Width 13.7% (11.5-14.5) Platelet Count 161x10^3/uL (140-400) Neutrophils (%) (Auto) 79% (31-73) Lymphocytes (%) (Auto) 12% (24-48) Monocytes (%) (Auto) 9% (0-9) Eosinophils (%) (Auto) 0% (0-3) Basophils (%) (Auto) 0% (0-3) Neutrophils # (Auto) 15.1x10^3uL (1.8-7.7) Lymphocytes # (Auto) 2.2x10^3/uL (1.0-4.8) Monocytes # (Auto) 1.7x10^3/uL (0.0-1.1) Eosinophils # (Auto) 0.1x10^3/uL (0.0-0.7) Basophils # (Auto) 0.0x10^3/uL (0.0-0.2) Segmented Neutrophils % 60% (35-66) Band Neutrophils % 11% (0-9) Lymphocytes % 14% (24-48) Monocytes % 14% (0-10) Eosinophils % 1% (0-5) Platelet Estimate Adequate (ADEQUATE) Sodium Level 134mmol/L (136-145) Potassium Level 2.8mmol/L (3.5-5.1) Chloride Level 97mmol/L (98-107) Carbon Dioxide Level 30mmol/L (21-32) Anion Gap 7 (6-14) Blood Urea Nitrogen 28mg/dL (7-20) Creatinine 1.1mg/dL (0.6-1.0) Estimated GFR (Cockcroft-Gault) 49.7 BUN/Creatinine Ratio 25 (6-20) Glucose Level 247mg/dL (70-99) Calcium Level 8.6mg/dL (8.5-10.1) Magnesium Level 2.2mg/dL (1.8-2.4) Total Bilirubin 0.5mg/dL (0.2-1.0) Aspartate Amino Transf (AST/SGOT) 65U/L (15-37) Alanine Aminotransferase (ALT/SGPT) 87U/L (14-59) Alkaline Phosphatase 172U/L (46-116) Total Protein 6.1g/dL (6.4-8.2) Albumin 2.6g/dL (3.4-5.0) Albumin/Globulin Ratio 0.7 (1.0-1.7) Laboratory Tests Test 06/05/16 16:00 06/05/16 18:00 06/05/16 20:49 06/06/16 04:00 Glucose (Fingerstick) 375mg/dL (70-99) 260mg/dL (70-99) Urine Collection Type Unknown Urine Color Yellow Urine Clarity Turbid Urine pH 5.5 Urine Specific [place] 1.020 Urine Protein 30mg/dL (NEG-TRACE) Urine Glucose (UA) 500mg/dL (NEG) Urine Ketones (Stick) Tracemg/dL (NEG) Urine Blood Large (NEG) Urine Nitrite Negative (NEG) Urine Bilirubin Negative (NEG) Urine Urobilinogen Dipstick 1.0mg/dL (0.2 mg/dL) Urine Leukocyte Esterase Large (NEG) Urine RBC 3-5/HPF (0-2) Urine WBC 20-40/HPF (0-4) Urine Squamous Epithelial Cells Few/LPF Urine Bacteria Many/HPF (0-FEW) Urine Mucus Slight/LPF White Blood Count 19.2x10^3/uL (4.0-11.0) Red Blood Count 3.62x10^6/uL (3.50-5.40) Hemoglobin 10.8g/dL (12.0-15.5) Hematocrit 33.2% (36.0-47.0) Mean Corpuscular Volume 92fL (79-100) Mean Corpuscular Hemoglobin 30pg (25-35) Mean Corpuscular Hemoglobin Concent 33g/dL (31-37) Red Cell Distribution Width 13.7% (11.5-14.5) Platelet Count 161x10^3/uL (140-400) Neutrophils (%) (Auto) 79% (31-73) Lymphocytes (%) (Auto) 12% (24-48) Monocytes (%) (Auto) 9% (0-9) Eosinophils (%) (Auto) 0% (0-3) Basophils (%) (Auto) 0% (0-3) Neutrophils # (Auto) 15.1x10^3uL (1.8-7.7) Lymphocytes # (Auto) 2.2x10^3/uL (1.0-4.8) Monocytes # (Auto) 1.7x10^3/uL (0.0-1.1) Eosinophils # (Auto) 0.1x10^3/uL (0.0-0.7) Basophils # (Auto) 0.0x10^3/uL (0.0-0.2) Segmented Neutrophils % 60% (35-66) Band Neutrophils % 11% (0-9) Lymphocytes % 14% (24-48) Monocytes % 14% (0-10) Eosinophils % 1% (0-5) Platelet Estimate Adequate (ADEQUATE) Sodium Level 134mmol/L (136-145) Potassium Level 2.8mmol/L (3.5-5.1) Chloride Level 97mmol/L (98-107) Carbon Dioxide Level 30mmol/L (21-32) Anion Gap 7 (6-14) Blood Urea Nitrogen 28mg/dL (7-20) Creatinine 1.1mg/dL (0.6-1.0) Estimated GFR (Cockcroft-Gault) 49.7 BUN/Creatinine Ratio 25 (6-20) Glucose Level 247mg/dL (70-99) Calcium Level 8.6mg/dL (8.5-10.1) Magnesium Level 2.2mg/dL (1.8-2.4) Total Bilirubin 0.5mg/dL (0.2-1.0) Aspartate Amino Transf (AST/SGOT) 65U/L (15-37) Alanine Aminotransferase (ALT/SGPT) 87U/L (14-59) Alkaline Phosphatase 172U/L (46-116) Total Protein 6.1g/dL (6.4-8.2) Albumin 2.6g/dL (3.4-5.0) Albumin/Globulin Ratio 0.7 (1.0-1.7) Test 06/06/16 08:03 06/06/16 11:22 Glucose (Fingerstick) 231mg/dL (70-99) 200mg/dL (70-99) Microbiology 06/05/16 Blood Culture - Preliminary, Resulted NO GROWTH AFTER 1 DAY Medications Current Medications Potassium Chloride (KCl Premix 10meq) 100 ml @ 100 mls/hr Q1H IV Last administered on 06/05/16 17:00; Start 06/05/16 at 10:00; Stop 06/05/16 at 13:59 ; Status DC Ibuprofen (Motrin) 800 mg 1X ONCE PO Last administered on 06/05/16 12:59; Start 06/05/16 at 13:00; Stop 06/05/16 at 13:01; Status DC Ibuprofen 800 mg 800 mg STK-MED ONCE PO ; Start 06/05/16 at 12:57; Stop at 12:58; Status DC Ceftriaxone Sodium/Sodium Chloride (Rocephin/Iv Sodium Chloride 0.9% 50ml) 50 ml @ 100 mls/hr Q24H IV Last administered on 06/05/16 17:42; Start 06/05/16 at 15:30 Amlodipine Besylate (Norvasc) 5 mg DAILY PO Last administered on 06/06/16 09: 52; Start 06/06/16 at 09:00 Atorvastatin Calcium (Lipitor) 20 mg QHS PO Last administered on 06/05/16 22: 10; Start 06/05/16 at 21:00 Baclofen (Lioresal) 5 mg TID PO Last administered on 06/06/16 13:50; Start at 21:00 Clonazepam (Klonopin) 0.5 mg TID PO Last administered on 06/06/16 13:50; Start 06/05/16 at 21:00 Insulin Aspart (Novolog) 8 units TIDBFRMEAL SQ Last administered on 06/06/16 12:19; Start 06/06/16 at 07:30 Levothyroxine Sodium (Synthroid) 125 mcg DAILY07 PO Last administered on 06:23; Start 06/06/16 at 07:00 Oxybutynin Chloride (Ditropan) 5 mg BID PO Last administered on 06/06/16 09:51 ; Start 06/05/16 at 21:00 Insulin Detemir (Levemir) 6 units QHS SQ Last administered on 06/05/16 22:16; Start 06/05/16 at 21:00 Insulin Detemir (Levemir) 10 units DAILY08 SQ Last administered on 06/06/16 08 :27; Start 06/06/16 at 08:00 Losartan Potassium (Cozaar) 50 mg DAILY PO Last administered on 06/06/16 09:52 ; Start 06/06/16 at 09:00 Meclizine HCl (Antivert) 25 mg PRN TID PRN PO DIZZINESS; Start 06/05/16 at 16: 45 Pantoprazole Sodium (Protonix) 40 mg DAILYAC PO Last administered on 06/06/16 08:21; Start 06/06/16 at 07:30 Indapamide (Lozol) 1.25 mg DAILY PO Last administered on 06/06/16 09:53; Start 06/06/16 at 09:00 Non-Formulary Medication 40 mg 3X/WEEK SQ ; Start 06/08/16 at 09:00; Status UNV Acetaminophen (Tylenol) 650 mg PRN Q6HRS PRN UT MILD PAIN / TEMP; Start at 16:45; Stop 06/05/16 at 17:12; Status DC Insulin Aspart (Novolog) 20 units 1X ONCE SQ Last administered on 06/05/16 17 :51; Start 06/05/16 at 16:45; Stop 06/05/16 at 16:51; Status DC Insulin Aspart (Novolog) 0-5 UNITS TIDWMEALS SQ Last administered on 06/06/16 12:20; Start 06/05/16 at 17:00 Dextrose 12.5 gm PRN Q15MIN PRN IV SEE COMMENTS; Start 06/05/16 at 16:45 Non-Formulary Medication 1 ea QMWF SQ Last administered on 06/05/16 17:40; Start 06/05/16 at 16:00 Acetaminophen (Tylenol) 650 mg PRN Q6HRS PRN PO MILD PAIN / TEMP Last administered on 06/06/16 13:14; Start 06/05/16 at 17:15 Docusate Sodium (Colace) 100 mg PRN DAILY PRN PO CONSTIPATION; Start 06/05/16 at 20:37 Docusate Sodium 100 mg 100 mg DAILY PO Last administered on 06/06/16 09:52; Start 06/06/16 at 09:00 Potassium Chloride (KCl Premix 10meq) 100 ml @ 100 mls/hr Q1H IV Last administered on 06/06/16 10:40; Start 06/06/16 at 07:00; Stop 06/06/16 at 10:59 ; Status DC Guaifenesin/ Codeine Phosphate (Robitussin Ac) 5 ml PRN Q6HRS PRN PO COUGH; Start 06/06/16 at 13:00 Guaifenesin (Mucinex) 600 mg BID PO Last administered on 06/06/16 13:14; Start 06/06/16 at 13:00 Active Scripts Active Hydrocodone-Apap 5-325 (Hydrocodone Bit/Acetaminophen) 1 Each Tablet 1 Tab PO PRN Q6HRS PRN Reported Levemir (Insulin Detemir) 100 Unit/1 Ml Vial 6 Unit SQ HS Levemir (Insulin Detemir) 100 Unit/1 Ml Vial 10 Unit SQ DAILY08 Indapamide 1.25 Mg Tablet Indapamide 1.25 Mg Tablet Indapamide 1.25 Mg Tablet Indapamide 1.25 Mg Tablet Clonazepam 1 Mg Tablet Copaxone (Glatiramer Acetate) 40 Mg/1 Ml Syringe 40 Mg SQ 3X/WEEK Indapamide 1.25 Mg Tablet 1 Tab PO DAILY Omeprazole 20 Mg Capsule.dr 1 Cap PO DAILY Levemir Flextouch (Insulin Detemir) 100 Unit/1 Ml Insuln.pen 14 Unit SQ HS Hydrocodone-Apap 5-325 (Hydrocodone Bit/Acetaminophen) 1 Each Tablet 1 Tab PO PRN Q6HRS PRN Meclizine Hcl 25 Mg Tablet 1 Tab PO PRN TID Clonazepam 0.5 Mg Tablet 0.5 Mg PO TID Baclofen 10 Mg Tablet 5 Mg PO TID Copaxone (Glatiramer Acetate) 20 Mg/1 Ml Syringekit 20 Mg SQ Amlodipine Besylate 5 Mg Tablet 5 Mg PO DAILY Oxybutynin Chloride 5 Mg Tablet 5 Mg PO BID Novolog Flexpen (Insulin Aspart) 100 Unit/1 Ml Insuln.pen 100 Unit SQ 8 units tid ac Atorvastatin Calcium 20 Mg Tablet 20 Mg PO DAILY Losartan Potassium 100 Mg Tablet 50 Mg PO DAILY Levothyroxine Sodium 125 Mcg Tablet 125 Mcg PO DAILYAC Vitals/I & O Vital Sign - Last 24 Hours 06/05/16 06/05/16 06/05/16 06/05/16 15:00 18:16 19:00 20:00 Temp 102.8 100.4 102.8 100.4 Pulse 117 85 Resp 18 B/P 150/61 110/42 Pulse Ox 96 95 O2 Delivery Nasal Cannula Room Air Nasal Cannula Nasal Cannula O2 Flow Rate 2.0 2.0 2.0 06/05/16 06/05/16 06/06/16 06/06/16 20:14 23:00 03:30 07:00 Temp 102.8 97.6 97.5 97.7 102.8 97.6 97.5 97.7 Pulse 117 81 71 89 Resp B/P 150/61 125/46 128/55 138/44 Pulse Ox 96 94 94 96 O2 Delivery Room Air Nasal Cannula Nasal Cannula Nasal Cannula O2 Flow Rate 2.0 2.0 2.0 06/06/16 06/06/16 06/06/16 09:52 09:52 11:09 Temp 98.0 98.0 Pulse 89 89 76 Resp 18 B/P 138/44 138/44 126/50 Pulse Ox 98 O2 Delivery Nasal Cannula O2 Flow Rate 0.5 Intake and Output 06/05/16 06/05/16 06/06/16 15:00 23:00 07:00 Intake Total 700 ml Output Total 180 ml 200 ml Balance 520 ml -200 ml MANE PERES MD Jun 06, 2016 14:26
[2016-06-06] MEDS ORDERED: DEXTROSE 50% 25 GM / 50ML DISP.SYRIN. IV PRN (14:30)
[2016-06-06] MEDS ORDERED: ALBUTEROL SULFATE 2.5 MG/3 ML NEBU. NEB PRN (14:30)
[2016-06-06 14:31] VITALS: BP 108/49
[2016-06-06] MEDS: IPRATRPIUM/ALBUTEROL 0.5/2.5MG 3 ML NEBU. NEB SCH ×2 (16:00→18:14)
[2016-06-06] MEDS: ENOXAPARIN 40 MG/0.4 ML DISP.SYRIN. SQ SCH (17:29)
[2016-06-06] MEDS: CEFTRIAXONE SODIUM 1 GM in IV NORMAL SALINE 50ML 50 ML IV SCH (18:50)
[2016-06-06 19:54] VITALS: BP 128/52
[2016-06-06] MEDS: ATORVASTATIN CALCIUM 20 MG TABLET PO SCH (20:53)
[2016-06-06] MEDS ORDERED: INSULIN DETEMIR 300 UNITS/3 ML INSULN.PEN. SQ SCH (21:00)
[2016-06-06 22:17] VITALS: BP 136/58
[2016-06-07 02:38] VITALS: BP 129/60
--- NOTE | 2016-06-07 03:48 | ACF ---
Admission Forms Criteria HYPONATREMIA; HYPERNATREMIA; HYPOKALEMIA; HYPERKALEMIA; HYPOCALCEMIA; HYPERCALCEMIA Clinical Indications for Inpatient Care (Place 'X' for any and all applicable criteria): Ongoing inpatient care may be indicated for ANY ONE of the following [G](1)(2)(3 )(5): [ ]I. Hyponatremia with ANY ONE of the following: [ ]a) Sodium less than 130 mEq/L (mmol/L) (new) (6)(22) [ ]b) Sodium less than 135 mEq/L (mmol/L) with ANY ONE of the following: [ ]i) Severe medical etiology requiring inpatient management (eg, heart failure, hypovolemia) [ ]ii) Altered mental status [ ]iii) Seizures [ ]II. Hypernatremia with ANY ONE of the following: [ ]a) Sodium greater than 155 mEq/L (mmol/L) [ ]b) Sodium greater than 150 mEq/L (mmol/L) with ANY ONE of the following: [ ] i) Altered mental status [ ]ii) Seizures [ ]iii) Severe medical etiology (eg, hypovolemia, diabetes insipidus) [ ]iv) Severe weakness [ ]v) Severe medical etiology (eg, hemolysis, infection, drug overdose) [X]III. Hypokalemia with ANY ONE of the following: [ ]a) Potassium less than 2.5 mEq/L (mmol/L) despite outpatient and emergency treatment [X]b) Potassium less than 3.0 mEq/L (mmol/L) with ANY ONE of the following: [X]i) Weakness [ ]ii) Cardiac abnormality (eg, arrhythmia, conduction disturbance) [ ]iii) Cardiac ischemia [ ]iv) Ileus [ ]v) Ongoing medical cause requiring inpatient management. ( e.g., acute renal wasting, SIADH) [ ]vi) Other severe symptoms [ ] IV. Hyperkalemia with ANY ONE of the following: [ ]a) Potassium greater than 6.5 mEq/L (mmol/L) [ ]b) Potassium greater than 5 mEq/L (mmol/L) with ANY ONE of the following: [ ]i) Severe ECG findings [H] [ ]ii) Acute worsening of renal failure (creatinine greater than 2.5 mg/dL (221 micromoles/L) or significant elevation for age and size) [ ] V. Hypocalcemia with ANY ONE of the following: [ ]a) Calcium less than 7 mg/dL (1.75 mmol/L) despite outpatient and emergency treatment(19) [ ]b) Calcium less than 8 mg/dL (2 mmol/L) with significant symptoms or findings; examples include: [ ]i) Cardiac abnormality (eg, arrhythmia or conduction disturbance) [ ]ii) Altered mental status [ ]iii) Seizures [ ]iv) Breathing difficulty [ ]v) Muscle spasms [ ]. Hypercalcemia with ANY ONE of the following: [ ]a) Calcium greater than 14 mg/dL (3.5 mmol/L) [ ]b) Calcium greater than 12 mg/dL (3 mmol/L) with ANY ONE of the following: [ ]i) Significant dehydration or hypovolemia as indicated by ANY ONE of the following(2): [ ]1. Clinically significant dehydration as indicated by ANY ONE of the following: [ ]A. Acute loss of weight from baseline (5% of body weight in adults, 9% in pediatric patients) [ ]B. Hemodynamic instability [ ]C. Acute renal failure [ ]D. Serum sodium greater than 150 mEq/L (mmol/L) [ ]2) Dehydration that is persistent indicated by ALL of the following: [ ]A. Oral rehydration therapy not tolerated or insufficient to adequately correct dehydration [ ]B. Appropriate intravenous treatment (eg, fluids ) does not readily correct dehydration ie, after 12 to 24 hours of treatment) [ ]ii) Significant symptoms or findings; examples include: [ ]1) Altered mental status [ ]2) Cardiac abnormality (eg, arrhythmia, conduction disturbance) [ ]3) Cardiac abnormality (eg, arrhythmia, conduction disturbance) The original [facility] content created by [employer] has been revised. The portions of the content which have been revised are identified through the use of italic text or in bold, and [facility] has neither reviewed nor approved the modified material. All other unmodified content is copyright [facility] [email or web address] Please see references footnoted in the original [facility] [employer] edition 2016 Admission Criteria Met?: Yes MIRACLE WADSWORTH Jun 07, 2016 03:47
[2016-06-07] MEDS: IPRATRPIUM/ALBUTEROL 0.5/2.5MG 3 ML NEBU. NEB SCH ×4 (07:52→18:26)
[2016-06-07 08:00] VITALS: BP 157/70
[2016-06-07] MEDS: PANTOPRAZOLE 40 MG TABLET. PO SCH (08:13)
[2016-06-07] MEDS: LEVOTHYROXINE 125 MCG TABLET PO SCH (08:13)
[2016-06-07] MEDS: INSULIN ASPART 300 UNITS/3 ML INSULN.PEN SQ SCH ×7 (08:19→21:45)
[2016-06-07] MEDS: INSULIN DETEMIR 300 UNITS/3 ML INSULN.PEN. SQ SCH ×2 (08:21→21:44)
[2016-06-07 09:22] LABS: BASO % 0 % (0-3); EOS % 2 % (0-3); HEMATOCRIT 33.9 % (36.0-47.0); HEMOGLOBIN 11.3 g/dL (12.0-15.5); LYMPH # 3.2 x10^3/uL (1.0-4.8); LYMPH % 26 % (24-48); MEAN CORPUSCULAR HEMOGLOBIN 30 pg (25-35); MEAN CORPUSCULAR HGB CONC 33 g/dL (31-37); MEAN CORPUSCULAR VOLUME 90 fL (79-100); MONO % 8 % (0-9); NEUT % 65 % (31-73); PLATELET COUNT 191 x10^3/uL (140-400); RED BLOOD COUNT 3.78 x10^6/uL (3.50-5.40); RED CELL DISTRIBUTION WIDTH 13.6 % (11.5-14.5); WHITE BLOOD COUNT 12.4 x10^3/uL (4.0-11.0)
[2016-06-07 09:25] LABS: CALCIUM 8.7 mg/dL (8.5-10.1); CREATININE 0.9 mg/dL (0.6-1.0); GFR 62.6; POTASSIUM 3.4 mmol/L (3.5-5.1)
[2016-06-07] MEDS: INDAPAMIDE 2.5 MG TABLET PO SCH (09:25)
[2016-06-07] MEDS: GUAIFENESIN ER 600 MG TABLET.ER PO SCH ×2 (09:25→21:36)
[2016-06-07] MEDS: DOCUSATE SODIUM 100 MG CAPSULE PO SCH (09:25)
[2016-06-07] MEDS: AMLODIPINE BESYLATE 5 MG TABLET PO SCH (09:25)
[2016-06-07] MEDS: LOSARTAN POTASSIUM 50 MG TABLET. PO SCH (09:26)
[2016-06-07] MEDS: BACLOFEN 10 MG TABLET PO SCH ×3 (09:26→21:36)
[2016-06-07] MEDS: OXYBUTYNIN CHLORIDE 5 MG TABLET PO SCH ×2 (09:26→21:36)
[2016-06-07] MEDS: GUAIFENESIN/CODEINE 100mg/10mg 5 ML LIQUID. PO PRN ×3 (09:27→22:05)
[2016-06-07] MEDS: CLONAZEPAM 0.5 MG TABLET PO SCH ×3 (09:38→21:37)
[2016-06-07] MEDS ORDERED: POTASSIUM CHLORIDE 20 MEQ TABLET.ER. PO ONE (10:15)
[2016-06-07 11:15] VITALS: BP 113/55
--- NOTE | 2016-06-07 11:51 | PDOC ---
PULMONARY PROGRESS NOTES Subjective Feeling improved, no complaints. Vitals Vital Signs Date Time Temp Pulse Resp B/P Pulse Ox O2 Delivery O2 Flow Rate FiO2 06/07/16 09:26 84 129/60 06/07/16 08:00 97.9 20 95 Room Air 97.9 06/07/16 02:38 2.0 ROS: No Nausea, No Chest Pain, No Abdominal Pain General: Alert, Oriented X4, No acute distress Lungs: Clear, Crackles, Other (Decreased BS in base ) Cardiovascular: S1, S2 Abdomen: Soft, Non-tender Neuro Exam: Alert, Oriented, Normal Speech Extremities: No Edema Skin: Warm, Dry Labs Laboratory Tests Test 06/05/16 12:55 06/05/16 16:00 06/05/16 18:00 06/05/16 20:49 Glucose (Fingerstick) 111mg/dL (70-99) 375mg/dL (70-99) 260mg/dL (70-99) Urine Collection Type Unknown Urine Color Yellow Urine Clarity Turbid Urine pH 5.5 Urine Specific [place] 1.020 Urine Protein 30mg/dL (NEG-TRACE) Urine Glucose (UA) 500mg/dL (NEG) Urine Ketones (Stick) Tracemg/dL (NEG) Urine Blood Large (NEG) Urine Nitrite Negative (NEG) Urine Bilirubin Negative (NEG) Urine Urobilinogen Dipstick 1.0mg/dL (0.2 mg/dL) Urine Leukocyte Esterase Large (NEG) Urine RBC 3-5/HPF (0-2) Urine WBC 20-40/HPF (0-4) Urine Squamous Epithelial Cells Few/LPF Urine Bacteria Many/HPF (0-FEW) Urine Mucus Slight/LPF Test 06/06/16 04:00 06/06/16 08:03 06/06/16 11:22 06/06/16 16:43 White Blood Count 19.2x10^3/uL (4.0-11.0) Red Blood Count 3.62x10^6/uL (3.50-5.40) Hemoglobin 10.8g/dL (12.0-15.5) Hematocrit 33.2% (36.0-47.0) Mean Corpuscular Volume 92fL (79-100) Mean Corpuscular Hemoglobin 30pg (25-35) Mean Corpuscular Hemoglobin Concent 33g/dL (31-37) Red Cell Distribution Width 13.7% (11.5-14.5) Platelet Count 161x10^3/uL (140-400) Neutrophils (%) (Auto) 79% (31-73) Lymphocytes (%) (Auto) 12% (24-48) Monocytes (%) (Auto) 9% (0-9) Eosinophils (%) (Auto) 0% (0-3) Basophils (%) (Auto) 0% (0-3) Neutrophils # (Auto) 15.1x10^3uL (1.8-7.7) Lymphocytes # (Auto) 2.2x10^3/uL (1.0-4.8) Monocytes # (Auto) 1.7x10^3/uL (0.0-1.1) Eosinophils # (Auto) 0.1x10^3/uL (0.0-0.7) Basophils # (Auto) 0.0x10^3/uL (0.0-0.2) Segmented Neutrophils % 60% (35-66) Band Neutrophils % 11% (0-9) Lymphocytes % 14% (24-48) Monocytes % 14% (0-10) Eosinophils % 1% (0-5) Platelet Estimate Adequate (ADEQUATE) Sodium Level 134mmol/L (136-145) Potassium Level 2.8mmol/L (3.5-5.1) Chloride Level 97mmol/L (98-107) Carbon Dioxide Level 30mmol/L (21-32) Anion Gap 7 (6-14) Blood Urea Nitrogen 28mg/dL (7-20) Creatinine 1.1mg/dL (0.6-1.0) Estimated GFR (Cockcroft-Gault) 49.7 BUN/Creatinine Ratio 25 (6-20) Glucose Level 247mg/dL (70-99) Calcium Level 8.6mg/dL (8.5-10.1) Magnesium Level 2.2mg/dL (1.8-2.4) Total Bilirubin 0.5mg/dL (0.2-1.0) Aspartate Amino Transf (AST/SGOT) 65U/L (15-37) Alanine Aminotransferase (ALT/SGPT) 87U/L (14-59) Alkaline Phosphatase 172U/L (46-116) Total Protein 6.1g/dL (6.4-8.2) Albumin 2.6g/dL (3.4-5.0) Albumin/Globulin Ratio 0.7 (1.0-1.7) Glucose (Fingerstick) 231mg/dL (70-99) 200mg/dL (70-99) 79mg/dL (70-99) Test 06/06/16 20:35 06/07/16 07:27 06/07/16 08:50 Glucose (Fingerstick) 238mg/dL (70-99) 238mg/dL (70-99) White Blood Count 12.4x10^3/uL (4.0-11.0) Red Blood Count 3.78x10^6/uL (3.50-5.40) Hemoglobin 11.3g/dL (12.0-15.5) Hematocrit 33.9% (36.0-47.0) Mean Corpuscular Volume 90fL (79-100) Mean Corpuscular Hemoglobin 30pg (25-35) Mean Corpuscular Hemoglobin Concent 33g/dL (31-37) Red Cell Distribution Width 13.6% (11.5-14.5) Platelet Count 191x10^3/uL (140-400) Neutrophils (%) (Auto) 65% (31-73) Lymphocytes (%) (Auto) 26% (24-48) Monocytes (%) (Auto) 8% (0-9) Eosinophils (%) (Auto) 2% (0-3) Basophils (%) (Auto) 0% (0-3) Neutrophils # (Auto) 8.0x10^3uL (1.8-7.7) Lymphocytes # (Auto) 3.2x10^3/uL (1.0-4.8) Monocytes # (Auto) 0.9x10^3/uL (0.0-1.1) Eosinophils # (Auto) 0.3x10^3/uL (0.0-0.7) Basophils # (Auto) 0.0x10^3/uL (0.0-0.2) Sodium Level 136mmol/L (136-145) Potassium Level 3.4mmol/L (3.5-5.1) Chloride Level 97mmol/L (98-107) Carbon Dioxide Level 30mmol/L (21-32) Anion Gap 9 (6-14) Blood Urea Nitrogen 19mg/dL (7-20) Creatinine 0.9mg/dL (0.6-1.0) Estimated GFR (Cockcroft-Gault) 62.6 Glucose Level 281mg/dL (70-99) Calcium Level 8.7mg/dL (8.5-10.1) Laboratory Tests Test 06/06/16 16:43 06/06/16 20:35 06/07/16 07:27 06/07/16 08:50 Glucose (Fingerstick) 79mg/dL (70-99) 238mg/dL (70-99) 238mg/dL (70-99) White Blood Count 12.4x10^3/uL (4.0-11.0) Red Blood Count 3.78x10^6/uL (3.50-5.40) Hemoglobin 11.3g/dL (12.0-15.5) Hematocrit 33.9% (36.0-47.0) Mean Corpuscular Volume 90fL (79-100) Mean Corpuscular Hemoglobin 30pg (25-35) Mean Corpuscular Hemoglobin Concent 33g/dL (31-37) Red Cell Distribution Width 13.6% (11.5-14.5) Platelet Count 191x10^3/uL (140-400) Neutrophils (%) (Auto) 65% (31-73) Lymphocytes (%) (Auto) 26% (24-48) Monocytes (%) (Auto) 8% (0-9) Eosinophils (%) (Auto) 2% (0-3) Basophils (%) (Auto) 0% (0-3) Neutrophils # (Auto) 8.0x10^3uL (1.8-7.7) Lymphocytes # (Auto) 3.2x10^3/uL (1.0-4.8) Monocytes # (Auto) 0.9x10^3/uL (0.0-1.1) Eosinophils # (Auto) 0.3x10^3/uL (0.0-0.7) Basophils # (Auto) 0.0x10^3/uL (0.0-0.2) Sodium Level 136mmol/L (136-145) Potassium Level 3.4mmol/L (3.5-5.1) Chloride Level 97mmol/L (98-107) Carbon Dioxide Level 30mmol/L (21-32) Anion Gap 9 (6-14) Blood Urea Nitrogen 19mg/dL (7-20) Creatinine 0.9mg/dL (0.6-1.0) Estimated GFR (Cockcroft-Gault) 62.6 Glucose Level 281mg/dL (70-99) Calcium Level 8.7mg/dL (8.5-10.1) Medications Active Scripts Medications Dose Route/Sig Days Date Category Dose Instructions Levemir (Insulin Detemir) 100 Unit/1 Ml Vial 6 Unit SQ HS 06/05/16 Reported Levemir (Insulin Detemir) 100 Unit/1 Ml Vial 10 Unit SQ DAILY08 06/05/16 Reported Hydrocodone-Apap 5-325 (Hydrocodone Bit/Acetaminophen) 1 Each Tablet 1 Tab PO PRN Q6HRS PRN 05/12/16 Rx Indapamide 1.25 Mg Tablet 05/08/16 Reported Indapamide 1.25 Mg Tablet 05/08/16 Reported Indapamide 1.25 Mg Tablet 05/08/16 Reported Indapamide 1.25 Mg Tablet 05/08/16 Reported Clonazepam 1 Mg Tablet 05/08/16 Reported Copaxone (Glatiramer Acetate) 40 Mg/1 Ml Syringe 40 Mg SQ 3X/WEEK 04/20/16 Reported Indapamide 1.25 Mg Tablet 1 Tab PO DAILY 11/26/15 Reported Omeprazole 20 Mg Capsule.dr 1 Cap PO DAILY 09/18/15 Reported Levemir Flextouch (Insulin Detemir) 100 Unit/1 Ml Insuln.pen 14 Unit SQ HS 09/17/15 Reported Hydrocodone-Apap 5-325 (Hydrocodone Bit/Acetaminophen) 1 Each Tablet 1 Tab PO PRN Q6HRS PRN 09/17/15 Reported Meclizine Hcl 25 Mg Tablet 1 Tab PO PRN TID 09/17/15 Reported Clonazepam 0.5 Mg Tablet 0.5 Mg PO TID 09/17/15 Reported Baclofen 10 Mg Tablet 5 Mg PO TID 09/19/14 Reported Copaxone (Glatiramer Acetate) 20 Mg/1 Ml Syringekit 20 Mg SQ 09/19/14 Reported Amlodipine Besylate 5 Mg Tablet 5 Mg PO DAILY 12/01/13 Reported Oxybutynin Chloride 5 Mg Tablet 5 Mg PO BID 12/01/13 Reported Novolog Flexpen (Insulin Aspart) 100 Unit/1 Ml Insuln.pen 100 Unit SQ 12/01/13 Reported 8 units tid ac Atorvastatin Calcium 20 Mg Tablet 20 Mg PO DAILY 12/01/13 Reported Losartan Potassium 100 Mg Tablet 50 Mg PO DAILY 12/01/13 Reported Levothyroxine Sodium 125 Mcg Tablet 125 Mcg PO DAILYAC 12/01/[address] Chest : 06/05/16: Findings: No axillary lymphadenopathy is seen. There is an azygos lymph node measuring 8 mm. Evaluation for hilar lymphadenopathy is difficult without IV contrast. There is a mass or nodular infiltrate within the medial aspect of the right upper lobe. It extends along the medial aspect of the right upper lobe and the lateral border of the upper right mediastinum to the right hilum. Therefore, measurements are difficult without IV contrast to separate from hilar vessels. However, it measures at least 3.9 cm in vertical dimension and 2.6 cm in transverse dimension and 2.5 cm in AP dimension. There is a spiculated mass within the superior segment of the right lower lobe which measures 2.0 cm. There is a consolidative infiltrate with air bronchograms involving the anterior basal segment of the right lower lobe extending to the fissure. Small ill-defined subcentimeter lung nodules are seen within the lateral aspect of the right upper lobe seen best on images 16 through 19. The left lung field is clear. No pleural effusion or pneumothorax is seen. The proximal bronchial tree is patent. No focal aneurysmal dilatation of the thoracic aorta is seen. The heart size is at the upper limits of normal. No significant pericardial effusion is seen. Calcified atheromatous disease of the coronary arteries is evident. No adrenal mass is seen. No osteolytic process is seen. Impression . IMPRESSION: 1. High grade fever - however improved - last fever 06/05 @ 20:00. Suspect most likely viral syndrome. 2. Consolidative pneumonia RLL 3. Right Lung Mass/Infiltrate - 3.9x2.6x2.5 4. Spiculated Lung Mass : 2.0 cm in RLL 5. Electrolyte Abnormalities 5. Leukocytosis- continue Abx 6. Mild renal insufficiency, suspect due to dehydration. Plan . 1. Continue supportive care 2. Continue Oxygen therapy - wean/titrate as able 3. Continue Abx : Rocephin 4. Follow blood culture results 5. CT with consolidative pnuemonia, nodular infiltrate/mass, and a RLL spiculated nodule - plan on Bronchoscopy & Bx wednesday. 5. Bronchodilators p.r.n. 6. Follow potassium levels per PCP. JASMYNE CAMPUZANO MD Jun 07, 2016 11:51
--- NOTE | 2016-06-07 13:30 | PDOC ---
PROGRESS NOTES Chief Complaint Chief Complaint cough, fever 1. High grade fever, 2/2 bronchitis, virus vs. bacteria 2. right upper lung infiltrate CAP, right lower lob 2c nodule 3. Influenza negative. 4. Hypokalemia 5. sepsis with pna, Leukocytosis 6. Mild renal insufficiency, suspect due to dehydration. 7. MS 8. GRAves 9. dm1 10. HTN 11. HYPOthyroidism plan; 1. fu with pulm, bronch tmr 2 . on ceftriaxone 3. add duoneb, altuterol, cough meds 4. check mag, normal replete K 5. increase insulin levemir to 10u bid, aspart , ssi. may hold am levemir if glu is <200, if >200, 5u x1 dvt ppx History of Present Illness History of Present Illness cough a lot 06/06, better today with cough meds ct + lung nodule right lower lob 2cm right upper pna low K NO uti SYMPtom hyperglycemia Vitals Vitals Vital Signs Date Time Temp Pulse Resp B/P Pulse Ox O2 Delivery O2 Flow Rate FiO2 06/07/16 11:55 Room Air 06/07/16 11:15 97.8 95 20 113/55 95 97.8 06/07/16 02:38 2.0 Physical Exam General: Alert, Oriented X3, Cooperative Heart: Regular rate, Normal S1, Normal S2 Lungs: Clear, Crackles, Other (Decreased BS in base ) Abdomen: Normal bowel sounds, Soft Extremities: No clubbing, No cyanosis Skin: No rashes Labs LABS Laboratory Tests Test 06/06/16 16:43 06/06/16 20:35 06/07/16 07:27 06/07/16 08:50 Glucose (Fingerstick) 79mg/dL (70-99) 238mg/dL (70-99) 238mg/dL (70-99) White Blood Count 12.4x10^3/uL (4.0-11.0) Red Blood Count 3.78x10^6/uL (3.50-5.40) Hemoglobin 11.3g/dL (12.0-15.5) Hematocrit 33.9% (36.0-47.0) Mean Corpuscular Volume 90fL (79-100) Mean Corpuscular Hemoglobin 30pg (25-35) Mean Corpuscular Hemoglobin Concent 33g/dL (31-37) Red Cell Distribution Width 13.6% (11.5-14.5) Platelet Count 191x10^3/uL (140-400) Neutrophils (%) (Auto) 65% (31-73) Lymphocytes (%) (Auto) 26% (24-48) Monocytes (%) (Auto) 8% (0-9) Eosinophils (%) (Auto) 2% (0-3) Basophils (%) (Auto) 0% (0-3) Neutrophils # (Auto) 8.0x10^3uL (1.8-7.7) Lymphocytes # (Auto) 3.2x10^3/uL (1.0-4.8) Monocytes # (Auto) 0.9x10^3/uL (0.0-1.1) Eosinophils # (Auto) 0.3x10^3/uL (0.0-0.7) Basophils # (Auto) 0.0x10^3/uL (0.0-0.2) Sodium Level 136mmol/L (136-145) Potassium Level 3.4mmol/L (3.5-5.1) Chloride Level 97mmol/L (98-107) Carbon Dioxide Level 30mmol/L (21-32) Anion Gap 9 (6-14) Blood Urea Nitrogen 19mg/dL (7-20) Creatinine 0.9mg/dL (0.6-1.0) Estimated GFR (Cockcroft-Gault) 62.6 Glucose Level 281mg/dL (70-99) Calcium Level 8.7mg/dL (8.5-10.1) Test 06/07/16 11:43 Glucose (Fingerstick) 320mg/dL (70-99) Review of Systems Review of Systems no fever, chills, sob or chest pain Assessment and Plan Assessmemt and Plan Problems Medical Problems: (1) Cough Status: Acute (2) Hypokalemia Status: Acute Problems: Comment Review of Relevant I have reviewed the following items estrella (where applicable) has been applied. Labs Laboratory Tests Test 06/05/16 16:00 06/05/16 18:00 06/05/16 20:49 06/06/16 04:00 Glucose (Fingerstick) 375mg/dL (70-99) 260mg/dL (70-99) Urine Collection Type Unknown Urine Color Yellow Urine Clarity Turbid Urine pH 5.5 Urine Specific [place] 1.020 Urine Protein 30mg/dL (NEG-TRACE) Urine Glucose (UA) 500mg/dL (NEG) Urine Ketones (Stick) Tracemg/dL (NEG) Urine Blood Large (NEG) Urine Nitrite Negative (NEG) Urine Bilirubin Negative (NEG) Urine Urobilinogen Dipstick 1.0mg/dL (0.2 mg/dL) Urine Leukocyte Esterase Large (NEG) Urine RBC 3-5/HPF (0-2) Urine WBC 20-40/HPF (0-4) Urine Squamous Epithelial Cells Few/LPF Urine Bacteria Many/HPF (0-FEW) Urine Mucus Slight/LPF White Blood Count 19.2x10^3/uL (4.0-11.0) Red Blood Count 3.62x10^6/uL (3.50-5.40) Hemoglobin 10.8g/dL (12.0-15.5) Hematocrit 33.2% (36.0-47.0) Mean Corpuscular Volume 92fL (79-100) Mean Corpuscular Hemoglobin 30pg (25-35) Mean Corpuscular Hemoglobin Concent 33g/dL (31-37) Red Cell Distribution Width 13.7% (11.5-14.5) Platelet Count 161x10^3/uL (140-400) Neutrophils (%) (Auto) 79% (31-73) Lymphocytes (%) (Auto) 12% (24-48) Monocytes (%) (Auto) 9% (0-9) Eosinophils (%) (Auto) 0% (0-3) Basophils (%) (Auto) 0% (0-3) Neutrophils # (Auto) 15.1x10^3uL (1.8-7.7) Lymphocytes # (Auto) 2.2x10^3/uL (1.0-4.8) Monocytes # (Auto) 1.7x10^3/uL (0.0-1.1) Eosinophils # (Auto) 0.1x10^3/uL (0.0-0.7) Basophils # (Auto) 0.0x10^3/uL (0.0-0.2) Segmented Neutrophils % 60% (35-66) Band Neutrophils % 11% (0-9) Lymphocytes % 14% (24-48) Monocytes % 14% (0-10) Eosinophils % 1% (0-5) Platelet Estimate Adequate (ADEQUATE) Sodium Level 134mmol/L (136-145) Potassium Level 2.8mmol/L (3.5-5.1) Chloride Level 97mmol/L (98-107) Carbon Dioxide Level 30mmol/L (21-32) Anion Gap 7 (6-14) Blood Urea Nitrogen 28mg/dL (7-20) Creatinine 1.1mg/dL (0.6-1.0) Estimated GFR (Cockcroft-Gault) 49.7 BUN/Creatinine Ratio 25 (6-20) Glucose Level 247mg/dL (70-99) Calcium Level 8.6mg/dL (8.5-10.1) Magnesium Level 2.2mg/dL (1.8-2.4) Total Bilirubin 0.5mg/dL (0.2-1.0) Aspartate Amino Transf (AST/SGOT) 65U/L (15-37) Alanine Aminotransferase (ALT/SGPT) 87U/L (14-59) Alkaline Phosphatase 172U/L (46-116) Total Protein 6.1g/dL (6.4-8.2) Albumin 2.6g/dL (3.4-5.0) Albumin/Globulin Ratio 0.7 (1.0-1.7) Test 06/06/16 08:03 06/06/16 11:22 06/06/16 16:43 06/06/16 20:35 Glucose (Fingerstick) 231mg/dL (70-99) 200mg/dL (70-99) 79mg/dL (70-99) 238mg/dL (70-99) Test 06/07/16 07:27 06/07/16 08:50 06/07/16 11:43 Glucose (Fingerstick) 238mg/dL (70-99) 320mg/dL (70-99) White Blood Count 12.4x10^3/uL (4.0-11.0) Red Blood Count 3.78x10^6/uL (3.50-5.40) Hemoglobin 11.3g/dL (12.0-15.5) Hematocrit 33.9% (36.0-47.0) Mean Corpuscular Volume 90fL (79-100) Mean Corpuscular Hemoglobin 30pg (25-35) Mean Corpuscular Hemoglobin Concent 33g/dL (31-37) Red Cell Distribution Width 13.6% (11.5-14.5) Platelet Count 191x10^3/uL (140-400) Neutrophils (%) (Auto) 65% (31-73) Lymphocytes (%) (Auto) 26% (24-48) Monocytes (%) (Auto) 8% (0-9) Eosinophils (%) (Auto) 2% (0-3) Basophils (%) (Auto) 0% (0-3) Neutrophils # (Auto) 8.0x10^3uL (1.8-7.7) Lymphocytes # (Auto) 3.2x10^3/uL (1.0-4.8) Monocytes # (Auto) 0.9x10^3/uL (0.0-1.1) Eosinophils # (Auto) 0.3x10^3/uL (0.0-0.7) Basophils # (Auto) 0.0x10^3/uL (0.0-0.2) Sodium Level 136mmol/L (136-145) Potassium Level 3.4mmol/L (3.5-5.1) Chloride Level 97mmol/L (98-107) Carbon Dioxide Level 30mmol/L (21-32) Anion Gap 9 (6-14) Blood Urea Nitrogen 19mg/dL (7-20) Creatinine 0.9mg/dL (0.6-1.0) Estimated GFR (Cockcroft-Gault) 62.6 Glucose Level 281mg/dL (70-99) Calcium Level 8.7mg/dL (8.5-10.1) Laboratory Tests Test 06/06/16 16:43 06/06/16 20:35 06/07/16 07:27 06/07/16 08:50 Glucose (Fingerstick) 79mg/dL (70-99) 238mg/dL (70-99) 238mg/dL (70-99) White Blood Count 12.4x10^3/uL (4.0-11.0) Red Blood Count 3.78x10^6/uL (3.50-5.40) Hemoglobin 11.3g/dL (12.0-15.5) Hematocrit 33.9% (36.0-47.0) Mean Corpuscular Volume 90fL (79-100) Mean Corpuscular Hemoglobin 30pg (25-35) Mean Corpuscular Hemoglobin Concent 33g/dL (31-37) Red Cell Distribution Width 13.6% (11.5-14.5) Platelet Count 191x10^3/uL (140-400) Neutrophils (%) (Auto) 65% (31-73) Lymphocytes (%) (Auto) 26% (24-48) Monocytes (%) (Auto) 8% (0-9) Eosinophils (%) (Auto) 2% (0-3) Basophils (%) (Auto) 0% (0-3) Neutrophils # (Auto) 8.0x10^3uL (1.8-7.7) Lymphocytes # (Auto) 3.2x10^3/uL (1.0-4.8) Monocytes # (Auto) 0.9x10^3/uL (0.0-1.1) Eosinophils # (Auto) 0.3x10^3/uL (0.0-0.7) Basophils # (Auto) 0.0x10^3/uL (0.0-0.2) Sodium Level 136mmol/L (136-145) Potassium Level 3.4mmol/L (3.5-5.1) Chloride Level 97mmol/L (98-107) Carbon Dioxide Level 30mmol/L (21-32) Anion Gap 9 (6-14) Blood Urea Nitrogen 19mg/dL (7-20) Creatinine 0.9mg/dL (0.6-1.0) Estimated GFR (Cockcroft-Gault) 62.6 Glucose Level 281mg/dL (70-99) Calcium Level 8.7mg/dL (8.5-10.1) Test 06/07/16 11:43 Glucose (Fingerstick) 320mg/dL (70-99) Microbiology 06/05/16 Blood Culture - Preliminary, Resulted NO GROWTH AFTER 1 DAY Medications Current Medications Potassium Chloride (KCl Premix 10meq) 100 ml @ 100 mls/hr Q1H IV Last administered on 06/05/16t 17:00; Start 06/05/16 at 10:00; Stop 06/05/16 at 13:59 ; Status DC Ibuprofen (Motrin) 800 mg 1X ONCE PO Last administered on 06/05/16 12:59; Start 06/05/16 at 13:00; Stop 06/05/16 at 13:01; Status DC Ibuprofen 800 mg 800 mg STK-MED ONCE PO ; Start 06/05/16 at 12:57; Stop at 12:58; Status DC Ceftriaxone Sodium/Sodium Chloride (Rocephin/Iv Sodium Chloride 0.9% 50ml) 50 ml @ 100 mls/hr Q24H IV Last administered on 06/06/16 18:50; Start 06/05/16 at 15:30 Amlodipine Besylate (Norvasc) 5 mg DAILY PO Last administered on 06/07/16 09: 25; Start 06/06/16 at 09:00 Atorvastatin Calcium (Lipitor) 20 mg QHS PO Last administered on 06/06/16 20: 53; Start 06/05/16 at 21:00 Baclofen (Lioresal) 5 mg TID PO Last administered on 06/07/16 09:26; Start at 21:00 Clonazepam (Klonopin) 0.5 mg TID PO Last administered on 06/07/16 09:38; Start 06/05/16 at 21:00 Insulin Aspart (Novolog) 8 units TIDBFRMEAL SQ Last administered on 06/07/16 12:16; Start 06/06/16 at 07:30 Levothyroxine Sodium (Synthroid) 125 mcg DAILY07 PO Last administered on 08:13; Start 06/06/16 at 07:00 Oxybutynin Chloride (Ditropan) 5 mg BID PO Last administered on 06/07/16 09:26 ; Start 06/05/16 at 21:00 Insulin Detemir (Levemir) 6 units QHS SQ Last administered on 06/05/16 22:16; Start 06/05/16 at 21:00; Stop 06/06/16 at 14:32; Status DC Insulin Detemir (Levemir) 10 units DAILY08 SQ Last administered on 06/07/16 08 :21; Start 06/06/16 at 08:00 Losartan Potassium (Cozaar) 50 mg DAILY PO Last administered on 06/07/16 09:26 ; Start 06/06/16 at 09:00 Meclizine HCl (Antivert) 25 mg PRN TID PRN PO DIZZINESS; Start 06/05/16 at 16: 45 Pantoprazole Sodium (Protonix) 40 mg DAILYAC PO Last administered on 06/07/16 08:13; Start 06/06/16 at 07:30 Indapamide (Lozol) 1.25 mg DAILY PO Last administered on 06/07/16 09:25; Start 06/06/16 at 09:00 Non-Formulary Medication 40 mg 3X/WEEK SQ ; Start 06/08/16 at 09:00; Status UNV Acetaminophen (Tylenol) 650 mg PRN Q6HRS PRN AL MILD PAIN / TEMP; Start at 16:45; Stop 06/05/16 at 17:12; Status DC Insulin Aspart (Novolog) 20 units 1X ONCE SQ Last administered on 06/05/16 17 :51; Start 06/05/16 at 16:45; Stop 06/05/16 at 16:51; Status DC Insulin Aspart (Novolog) 0-5 UNITS TIDWMEALS SQ Last administered on 06/06/16 12:20; Start 06/05/16 at 17:00; Stop 06/06/16 at 14:32; Status DC Dextrose 12.5 gm PRN Q15MIN PRN IV SEE COMMENTS; Start 06/05/16 at 16:45 Non-Formulary Medication 1 ea QMWF SQ Last administered on 06/05/16 17:40; Start 06/05/16 at 16:00 Acetaminophen (Tylenol) 650 mg PRN Q6HRS PRN PO MILD PAIN / TEMP Last administered on 06/06/16 13:14; Start 06/05/16 at 17:15 Docusate Sodium (Colace) 100 mg PRN DAILY PRN PO CONSTIPATION; Start 06/05/16 at 20:37 Docusate Sodium 100 mg 100 mg DAILY PO Last administered on 06/07/16 09:25; Start 06/06/16 at 09:00 Potassium Chloride (KCl Premix 10meq) 100 ml @ 100 mls/hr Q1H IV Last administered on 06/06/16 20:51; Start 06/06/16 at 07:00; Stop 06/06/16 at 10:59 ; Status DC Guaifenesin/ Codeine Phosphate (Robitussin Ac) 5 ml PRN Q6HRS PRN PO COUGH Last administered on 06/07/16 09:27; Start 06/06/16 at 13:00 Guaifenesin (Mucinex) 600 mg BID PO Last administered on 06/07/16 09:25; Start 06/06/16 at 13:00 Insulin Detemir (Levemir) 10 units QHS SQ Last administered on 06/06/16 21:01 ; Start 06/06/16 at 21:00; Stop 06/07/16 at 10:04; Status DC Insulin Aspart (Novolog) 0-9 UNITS QIDACHS SQ Last administered on 06/07/16 12 :15; Start 06/06/16 at 16:30 Dextrose 12.5 gm PRN Q15MIN PRN IV SEE COMMENTS; Start 06/06/16 at 14:30 Albuterol/ Ipratropium (Duoneb) 3 ml RTQID NEB Last administered on 06/07/16 11:55; Start 06/06/16 at 16:00 Albuterol Sulfate (Ventolin Neb Soln) 2.5 mg PRN Q4HRS PRN NEB SHORTNESS OF BREATH; Start 06/06/16 at 14:30 Enoxaparin Sodium (Lovenox 40mg Syringe) 40 mg Q24H SQ Last administered on 17:29; Start 06/06/16 at 15:00 Insulin Detemir (Levemir) 15 units QHS SQ ; Start 06/07/16 at 21:00; Stop at 21:00; Status DC Potassium Chloride (Klor-Con) 40 meq 1X ONCE PO Last administered on 12:06; Start 06/07/16 at 10:15; Stop 06/07/16 at 10:16; Status DC Insulin Detemir (Levemir) 10 units QHS SQ ; Start 06/07/16 at 21:00 Active Scripts Active Hydrocodone-Apap 5-325 (Hydrocodone Bit/Acetaminophen) 1 Each Tablet 1 Tab PO PRN Q6HRS PRN Reported Levemir (Insulin Detemir) 100 Unit/1 Ml Vial 6 Unit SQ HS Levemir (Insulin Detemir) 100 Unit/1 Ml Vial 10 Unit SQ DAILY08 Indapamide 1.25 Mg Tablet Indapamide 1.25 Mg Tablet Indapamide 1.25 Mg Tablet Indapamide 1.25 Mg Tablet Clonazepam 1 Mg Tablet Copaxone (Glatiramer Acetate) 40 Mg/1 Ml Syringe 40 Mg SQ 3X/WEEK Indapamide 1.25 Mg Tablet 1 Tab PO DAILY Omeprazole 20 Mg Capsule.dr 1 Cap PO DAILY Levemir Flextouch (Insulin Detemir) 100 Unit/1 Ml Insuln.pen 14 Unit SQ HS Hydrocodone-Apap 5-325 (Hydrocodone Bit/Acetaminophen) 1 Each Tablet 1 Tab PO PRN Q6HRS PRN Meclizine Hcl 25 Mg Tablet 1 Tab PO PRN TID Clonazepam 0.5 Mg Tablet 0.5 Mg PO TID Baclofen 10 Mg Tablet 5 Mg PO TID Copaxone (Glatiramer Acetate) 20 Mg/1 Ml Syringekit 20 Mg SQ Amlodipine Besylate 5 Mg Tablet 5 Mg PO DAILY Oxybutynin Chloride 5 Mg Tablet 5 Mg PO BID Novolog Flexpen (Insulin Aspart) 100 Unit/1 Ml Insuln.pen 100 Unit SQ 8 units tid ac Atorvastatin Calcium 20 Mg Tablet 20 Mg PO DAILY Losartan Potassium 100 Mg Tablet 50 Mg PO DAILY Levothyroxine Sodium 125 Mcg Tablet 125 Mcg PO DAILYAC Vitals/I & O Vital Sign - Last 24 Hours 06/06/16 06/06/16 06/06/16 06/06/16 14:31 18:18 19:54 20:25 Temp 98.8 97.7 98.8 97.7 Pulse 83 91 Resp 18 B/P 108/49 128/52 Pulse Ox 90 98 91 O2 Delivery Room Air Room Air Nasal Cannula Room Air O2 Flow Rate 2.0 06/06/16 06/07/16 06/07/16 06/07/16 22:17 02:38 07:54 08:00 Temp 98.0 98.5 98.0 98.5 Pulse 81 84 Resp 18 B/P 136/58 129/60 Pulse Ox 91 93 98 O2 Delivery Nasal Cannula Nasal Cannula Room Air Room Air O2 Flow Rate 2.0 2.0 1/22/06/07/16 06/07/16 06/07/16 08:00 09:25 09:26 11:15 Temp 97.9 97.8 97.9 97.8 Pulse 81 84 84 95 Resp 20 20 B/P 157/70 129/60 129/60 113/55 Pulse Ox 95 95 O2 Delivery Room Air Room Air 06/07/16 11:55 O2 Delivery Room Air Intake and Output 06/06/16 06/06/16 06/07/16 15:00 23:00 07:00 Intake Total 680 ml 340 ml 800 ml Output Total 1060 ml Balance 680 ml 340 ml -260 ml MANE PERES MD Jun 07, 2016 13:30
[2016-06-07] MEDS: ENOXAPARIN 40 MG/0.4 ML DISP.SYRIN. SQ SCH (14:52)
[2016-06-07 15:00] VITALS: BP 131/61
[2016-06-07] MEDS: CEFTRIAXONE SODIUM 1 GM in IV NORMAL SALINE 50ML 50 ML IV SCH (16:02)
[2016-06-07 19:00] VITALS: BP 136/55
[2016-06-07] MEDS ORDERED: INSULIN DETEMIR 300 UNITS/3 ML INSULN.PEN. SQ SCH (21:00)
[2016-06-07] MEDS: ATORVASTATIN CALCIUM 20 MG TABLET PO SCH (21:36)
[2016-06-07 23:00] VITALS: BP 130/55
[2016-06-08 03:00] VITALS: BP_SYST 119; BP_SYST 142; BP_DIAS 60; BP_DIAS 79
[2016-06-08] MEDS: GUAIFENESIN/CODEINE 100mg/10mg 5 ML LIQUID. PO PRN ×2 (04:05→15:27)
[2016-06-08 05:15] LABS: BASO # 0.1 x10^3/uL (0.0-0.2); BASO % 1 % (0-3); EOS % 3 % (0-3); HEMATOCRIT 33.3 % (36.0-47.0); LYMPH # 3.3 x10^3/uL (1.0-4.8); LYMPH % 33 % (24-48); MEAN CORPUSCULAR HEMOGLOBIN 30 pg (25-35); MEAN CORPUSCULAR HGB CONC 33 g/dL (31-37); MEAN CORPUSCULAR VOLUME 91 fL (79-100); MONO % 8 % (0-9); NEUT % 55 % (31-73); PLATELET COUNT 201 x10^3/uL (140-400); RED BLOOD COUNT 3.64 x10^6/uL (3.50-5.40); RED CELL DISTRIBUTION WIDTH 13.5 % (11.5-14.5); WHITE BLOOD COUNT 10.2 x10^3/uL (4.0-11.0)
[2016-06-08 06:31] LABS: CALCIUM 8.7 mg/dL (8.5-10.1); CREATININE 0.8 mg/dL (0.6-1.0); GFR 71.8; POTASSIUM 3.6 mmol/L (3.5-5.1)
[2016-06-08 07:00] VITALS: BP 162/59
[2016-06-08] MEDS: IPRATRPIUM/ALBUTEROL 0.5/2.5MG 3 ML NEBU. NEB SCH ×4 (08:07→20:07)
[2016-06-08] MEDS: INSULIN ASPART 300 UNITS/3 ML INSULN.PEN SQ SCH ×7 (08:20→21:16)
[2016-06-08] MEDS: INSULIN DETEMIR 300 UNITS/3 ML INSULN.PEN. SQ SCH ×2 (08:21→21:16)
[2016-06-08] MEDS: PANTOPRAZOLE 40 MG TABLET. PO SCH (08:22)
[2016-06-08] MEDS: LEVOTHYROXINE 125 MCG TABLET PO SCH (08:22)
[2016-06-08] MEDS: DOCUSATE SODIUM 100 MG CAPSULE PO SCH (08:23)
[2016-06-08] MEDS: LOSARTAN POTASSIUM 50 MG TABLET. PO SCH (08:24)
[2016-06-08] MEDS: CLONAZEPAM 0.5 MG TABLET PO SCH ×3 (08:24→20:46)
[2016-06-08] MEDS: OXYBUTYNIN CHLORIDE 5 MG TABLET PO SCH ×2 (08:24→20:46)
[2016-06-08] MEDS: GUAIFENESIN ER 600 MG TABLET.ER PO SCH ×2 (08:25→20:47)
[2016-06-08] MEDS: INDAPAMIDE 2.5 MG TABLET PO SCH (08:25)
[2016-06-08] MEDS: AMLODIPINE BESYLATE 5 MG TABLET PO SCH (08:25)
[2016-06-08] MEDS: BACLOFEN 10 MG TABLET PO SCH ×3 (08:26→20:47)
[2016-06-08] MEDS ORDERED: GLATIRAMER ACETATE 40 MG SQ SCH (09:00)
--- NOTE | 2016-06-08 09:56 | PDOC ---
PROGRESS NOTES Chief Complaint Chief Complaint cough, fever Fevers, Right upper lung infiltrate CAP, right lower lob 2c nodule HTN Hyperglycemia Plan 1. Bronchoscopy today 2 . on ceftriaxone 3. add DuoNeb, albuterol, 4. SSI. 5. labs reviewed, 6. clinically getting better. History of Present Illness History of Present Illness cough no fever no chills doing better Vitals Vitals Vital Signs Date Time Temp Pulse Resp B/P Pulse Ox O2 Delivery O2 Flow Rate FiO2 06/08/16 08:25 90 142/60 06/08/16 08:07 96 Room Air 06/08/16 07:00 98.1 22 98.1 06/07/16 20:00 2.0 Physical Exam General: Alert, Oriented X3, Cooperative Heart: Regular rate, Normal S1, Normal S2 Lungs: Clear, Crackles, Other Abdomen: Normal bowel sounds, Soft Extremities: No clubbing, No cyanosis Skin: No rashes Labs LABS Laboratory Tests Test 06/07/16 11:43 06/07/16 16:22 06/07/16 21:11 06/08/16 02:57 Glucose (Fingerstick) 320mg/dL (70-99) 230mg/dL (70-99) 222mg/dL (70-99) 204mg/dL (70-99) Test 06/08/16 05:00 06/08/16 07:29 White Blood Count 10.2x10^3/uL (4.0-11.0) Red Blood Count 3.64x10^6/uL (3.50-5.40) Hemoglobin 11.0g/dL (12.0-15.5) Hematocrit 33.3% (36.0-47.0) Mean Corpuscular Volume 91fL (79-100) Mean Corpuscular Hemoglobin 30pg (25-35) Mean Corpuscular Hemoglobin Concent 33g/dL (31-37) Red Cell Distribution Width 13.5% (11.5-14.5) Platelet Count 201x10^3/uL (140-400) Neutrophils (%) (Auto) 55% (31-73) Lymphocytes (%) (Auto) 33% (24-48) Monocytes (%) (Auto) 8% (0-9) Eosinophils (%) (Auto) 3% (0-3) Basophils (%) (Auto) 1% (0-3) Neutrophils # (Auto) 5.7x10^3uL (1.8-7.7) Lymphocytes # (Auto) 3.3x10^3/uL (1.0-4.8) Monocytes # (Auto) 0.8x10^3/uL (0.0-1.1) Eosinophils # (Auto) 0.3x10^3/uL (0.0-0.7) Basophils # (Auto) 0.1x10^3/uL (0.0-0.2) Sodium Level 140mmol/L (136-145) Potassium Level 3.6mmol/L (3.5-5.1) Chloride Level 102mmol/L (98-107) Carbon Dioxide Level 27mmol/L (21-32) Anion Gap 11 (6-14) Blood Urea Nitrogen 15mg/dL (7-20) Creatinine 0.8mg/dL (0.6-1.0) Estimated GFR (Cockcroft-Gault) 71.8 Glucose Level 192mg/dL (70-99) Calcium Level 8.7mg/dL (8.5-10.1) Glucose (Fingerstick) 191mg/dL (70-99) Assessment and Plan Assessmemt and Plan Problems Medical Problems: (1) Cough Status: Acute (2) Hypokalemia Status: Acute Problems: Comment Review of Relevant I have reviewed the following items estrella (where applicable) has been applied. Labs Laboratory Tests Test 06/06/16 11:22 06/06/16 16:43 06/06/16 20:35 06/07/16 07:27 Glucose (Fingerstick) 200mg/dL (70-99) 79mg/dL (70-99) 238mg/dL (70-99) 238mg/dL (70-99) Test 06/07/16 08:50 06/07/16 11:43 06/07/16 16:22 06/07/16 21:11 White Blood Count 12.4x10^3/uL (4.0-11.0) Red Blood Count 3.78x10^6/uL (3.50-5.40) Hemoglobin 11.3g/dL (12.0-15.5) Hematocrit 33.9% (36.0-47.0) Mean Corpuscular Volume 90fL (79-100) Mean Corpuscular Hemoglobin 30pg (25-35) Mean Corpuscular Hemoglobin Concent 33g/dL (31-37) Red Cell Distribution Width 13.6% (11.5-14.5) Platelet Count 191x10^3/uL (140-400) Neutrophils (%) (Auto) 65% (31-73) Lymphocytes (%) (Auto) 26% (24-48) Monocytes (%) (Auto) 8% (0-9) Eosinophils (%) (Auto) 2% (0-3) Basophils (%) (Auto) 0% (0-3) Neutrophils # (Auto) 8.0x10^3uL (1.8-7.7) Lymphocytes # (Auto) 3.2x10^3/uL (1.0-4.8) Monocytes # (Auto) 0.9x10^3/uL (0.0-1.1) Eosinophils # (Auto) 0.3x10^3/uL (0.0-0.7) Basophils # (Auto) 0.0x10^3/uL (0.0-0.2) Sodium Level 136mmol/L (136-145) Potassium Level 3.4mmol/L (3.5-5.1) Chloride Level 97mmol/L (98-107) Carbon Dioxide Level 30mmol/L (21-32) Anion Gap 9 (6-14) Blood Urea Nitrogen 19mg/dL (7-20) Creatinine 0.9mg/dL (0.6-1.0) Estimated GFR (Cockcroft-Gault) 62.6 Glucose Level 281mg/dL (70-99) Calcium Level 8.7mg/dL (8.5-10.1) Glucose (Fingerstick) 320mg/dL (70-99) 230mg/dL (70-99) 222mg/dL (70-99) Test 06/08/16 02:57 06/08/16 05:00 06/08/16 07:29 Glucose (Fingerstick) 204mg/dL (70-99) 191mg/dL (70-99) White Blood Count 10.2x10^3/uL (4.0-11.0) Red Blood Count 3.64x10^6/uL (3.50-5.40) Hemoglobin 11.0g/dL (12.0-15.5) Hematocrit 33.3% (36.0-47.0) Mean Corpuscular Volume 91fL (79-100) Mean Corpuscular Hemoglobin 30pg (25-35) Mean Corpuscular Hemoglobin Concent 33g/dL (31-37) Red Cell Distribution Width 13.5% (11.5-14.5) Platelet Count 201x10^3/uL (140-400) Neutrophils (%) (Auto) 55% (31-73) Lymphocytes (%) (Auto) 33% (24-48) Monocytes (%) (Auto) 8% (0-9) Eosinophils (%) (Auto) 3% (0-3) Basophils (%) (Auto) 1% (0-3) Neutrophils # (Auto) 5.7x10^3uL (1.8-7.7) Lymphocytes # (Auto) 3.3x10^3/uL (1.0-4.8) Monocytes # (Auto) 0.8x10^3/uL (0.0-1.1) Eosinophils # (Auto) 0.3x10^3/uL (0.0-0.7) Basophils # (Auto) 0.1x10^3/uL (0.0-0.2) Sodium Level 140mmol/L (136-145) Potassium Level 3.6mmol/L (3.5-5.1) Chloride Level 102mmol/L (98-107) Carbon Dioxide Level 27mmol/L (21-32) Anion Gap 11 (6-14) Blood Urea Nitrogen 15mg/dL (7-20) Creatinine 0.8mg/dL (0.6-1.0) Estimated GFR (Cockcroft-Gault) 71.8 Glucose Level 192mg/dL (70-99) Calcium Level 8.7mg/dL (8.5-10.1) Laboratory Tests Test 06/07/16 11:43 06/07/16 16:22 06/07/16 21:11 06/08/16 02:57 Glucose (Fingerstick) 320mg/dL (70-99) 230mg/dL (70-99) 222mg/dL (70-99) 204mg/dL (70-99) Test 06/08/16 05:00 06/08/16 07:29 White Blood Count 10.2x10^3/uL (4.0-11.0) Red Blood Count 3.64x10^6/uL (3.50-5.40) Hemoglobin 11.0g/dL (12.0-15.5) Hematocrit 33.3% (36.0-47.0) Mean Corpuscular Volume 91fL (79-100) Mean Corpuscular Hemoglobin 30pg (25-35) Mean Corpuscular Hemoglobin Concent 33g/dL (31-37) Red Cell Distribution Width 13.5% (11.5-14.5) Platelet Count 201x10^3/uL (140-400) Neutrophils (%) (Auto) 55% (31-73) Lymphocytes (%) (Auto) 33% (24-48) Monocytes (%) (Auto) 8% (0-9) Eosinophils (%) (Auto) 3% (0-3) Basophils (%) (Auto) 1% (0-3) Neutrophils # (Auto) 5.7x10^3uL (1.8-7.7) Lymphocytes # (Auto) 3.3x10^3/uL (1.0-4.8) Monocytes # (Auto) 0.8x10^3/uL (0.0-1.1) Eosinophils # (Auto) 0.3x10^3/uL (0.0-0.7) Basophils # (Auto) 0.1x10^3/uL (0.0-0.2) Sodium Level 140mmol/L (136-145) Potassium Level 3.6mmol/L (3.5-5.1) Chloride Level 102mmol/L (98-107) Carbon Dioxide Level 27mmol/L (21-32) Anion Gap 11 (6-14) Blood Urea Nitrogen 15mg/dL (7-20) Creatinine 0.8mg/dL (0.6-1.0) Estimated GFR (Cockcroft-Gault) 71.8 Glucose Level 192mg/dL (70-99) Calcium Level 8.7mg/dL (8.5-10.1) Glucose (Fingerstick) 191mg/dL (70-99) Microbiology 06/05/16 Blood Culture - Preliminary, Resulted NO GROWTH AFTER 2 DAYS 06/05/16 Urine Culture - Final, Complete 06/05/16 Urine Culture Result 1 (GARETH) - Final, Complete Medications Current Medications Potassium Chloride (KCl Premix 10meq) 100 ml @ 100 mls/hr Q1H IV Last administered on 06/05/16 17:00; Start 06/05/16 at 10:00; Stop 06/05/16 at 13:59 ; Status DC Ibuprofen (Motrin) 800 mg 1X ONCE PO Last administered on 06/05/16 12:59; Start 06/05/16 at 13:00; Stop 06/05/16 at 13:01; Status DC Ibuprofen 800 mg 800 mg STK-MED ONCE PO ; Start 06/05/16 at 12:57; Stop at 12:58; Status DC Ceftriaxone Sodium/Sodium Chloride (Rocephin/Iv Sodium Chloride 0.9% 50ml) 50 ml @ 100 mls/hr Q24H IV Last administered on 06/07/16 16:02; Start 06/05/16 at 15:30 Amlodipine Besylate (Norvasc) 5 mg DAILY PO Last administered on 06/08/16 08: 25; Start 06/06/16 at 09:00 Atorvastatin Calcium (Lipitor) 20 mg QHS PO Last administered on 06/07/16 21: 36; Start 06/05/16 at 21:00 Baclofen (Lioresal) 5 mg TID PO Last administered on 06/07/16 21:36; Start at 21:00 Clonazepam (Klonopin) 0.5 mg TID PO Last administered on 06/08/16 08:24; Start 06/05/16 at 21:00 Insulin Aspart (Novolog) 8 units TIDBFRMEAL SQ Last administered on 06/07/16 17:22; Start 06/06/16 at 07:30 Levothyroxine Sodium (Synthroid) 125 mcg DAILY07 PO Last administered on 08:22; Start 06/06/16 at 07:00 Oxybutynin Chloride (Ditropan) 5 mg BID PO Last administered on 06/08/16 08:24 ; Start 06/05/16 at 21:00 Insulin Detemir (Levemir) 6 units QHS SQ Last administered on 06/05/16 22:16; Start 06/05/16 at 21:00; Stop 06/06/16 at 14:32; Status DC Insulin Detemir (Levemir) 10 units DAILY08 SQ Last administered on 06/07/16 08 :21; Start 06/06/16 at 08:00 Losartan Potassium (Cozaar) 50 mg DAILY PO Last administered on 06/08/16 08:24 ; Start 06/06/16 at 09:00 Meclizine HCl (Antivert) 25 mg PRN TID PRN PO DIZZINESS; Start 06/05/16 at 16: 45 Pantoprazole Sodium (Protonix) 40 mg DAILYAC PO Last administered on 06/08/16 08:22; Start 06/06/16 at 07:30 Indapamide (Lozol) 1.25 mg DAILY PO Last administered on 06/08/16 08:25; Start 06/06/16 at 09:00 Non-Formulary Medication 40 mg 3X/WEEK SQ ; Start 06/08/16 at 09:00; Status UNV Acetaminophen (Tylenol) 650 mg PRN Q6HRS PRN IA MILD PAIN / TEMP; Start at 16:45; Stop 06/05/16 at 17:12; Status DC Insulin Aspart (Novolog) 20 units 1X ONCE SQ Last administered on 06/05/16 17 :51; Start 06/05/16 at 16:45; Stop 06/05/16 at 16:51; Status DC Insulin Aspart (Novolog) 0-5 UNITS TIDWMEALS SQ Last administered on 06/06/16 12:20; Start 06/05/16 at 17:00; Stop 06/06/16 at 14:32; Status DC Dextrose 12.5 gm PRN Q15MIN PRN IV SEE COMMENTS; Start 06/05/16 at 16:45 Non-Formulary Medication 1 ea QMWF SQ Last administered on 06/05/16 17:40; Start 06/05/16 at 16:00 Acetaminophen (Tylenol) 650 mg PRN Q6HRS PRN PO MILD PAIN / TEMP Last administered on 06/06/16 13:14; Start 06/05/16 at 17:15 Docusate Sodium (Colace) 100 mg PRN DAILY PRN PO CONSTIPATION; Start 06/05/16 at 20:37 Docusate Sodium 100 mg 100 mg DAILY PO Last administered on 06/08/16 08:23; Start 06/06/16 at 09:00 Potassium Chloride (KCl Premix 10meq) 100 ml @ 100 mls/hr Q1H IV Last administered on 06/06/16 20:51; Start 06/06/16 at 07:00; Stop 06/06/16 at 10:59 ; Status DC Guaifenesin/ Codeine Phosphate (Robitussin Ac) 5 ml PRN Q6HRS PRN PO COUGH Last administered on 06/08/16 04:05; Start 06/06/16 at 13:00 Guaifenesin (Mucinex) 600 mg BID PO Last administered on 06/08/16 08:25; Start 06/06/16 at 13:00 Insulin Detemir (Levemir) 10 units QHS SQ Last administered on 06/06/16 21:01 ; Start 06/06/16 at 21:00; Stop 06/07/16 at 10:04; Status DC Insulin Aspart (Novolog) 0-9 UNITS QIDACHS SQ Last administered on 06/07/16 21 :45; Start 06/06/16 at 16:30 Dextrose 12.5 gm PRN Q15MIN PRN IV SEE COMMENTS; Start 06/06/16 at 14:30 Albuterol/ Ipratropium (Duoneb) 3 ml RTQID NEB Last administered on 06/08/16 08:07; Start 06/06/16 at 16:00 Albuterol Sulfate (Ventolin Neb Soln) 2.5 mg PRN Q4HRS PRN NEB SHORTNESS OF BREATH; Start 06/06/16 at 14:30 Enoxaparin Sodium (Lovenox 40mg Syringe) 40 mg Q24H SQ Last administered on 17:29; Start 06/06/16 at 15:00 Insulin Detemir (Levemir) 15 units QHS SQ ; Start 06/07/16 at 21:00; Stop at 21:00; Status DC Potassium Chloride (Klor-Con) 40 meq 1X ONCE PO Last administered on 12:06; Start 06/07/16 at 10:15; Stop 06/07/16 at 10:16; Status DC Insulin Detemir (Levemir) 10 units QHS SQ Last administered on 06/07/16 21:44 ; Start 06/07/16 at 21:00 Active Scripts Active Hydrocodone-Apap 5-325 (Hydrocodone Bit/Acetaminophen) 1 Each Tablet 1 Tab PO PRN Q6HRS PRN Reported Levemir (Insulin Detemir) 100 Unit/1 Ml Vial 6 Unit SQ HS Levemir (Insulin Detemir) 100 Unit/1 Ml Vial 10 Unit SQ DAILY08 Indapamide 1.25 Mg Tablet Indapamide 1.25 Mg Tablet Indapamide 1.25 Mg Tablet Indapamide 1.25 Mg Tablet Clonazepam 1 Mg Tablet Copaxone (Glatiramer Acetate) 40 Mg/1 Ml Syringe 40 Mg SQ 3X/WEEK Indapamide 1.25 Mg Tablet 1 Tab PO DAILY Omeprazole 20 Mg Capsule.dr 1 Cap PO DAILY Levemir Flextouch (Insulin Detemir) 100 Unit/1 Ml Insuln.pen 14 Unit SQ HS Hydrocodone-Apap 5-325 (Hydrocodone Bit/Acetaminophen) 1 Each Tablet 1 Tab PO PRN Q6HRS PRN Meclizine Hcl 25 Mg Tablet 1 Tab PO PRN TID Clonazepam 0.5 Mg Tablet 0.5 Mg PO TID Baclofen 10 Mg Tablet 5 Mg PO TID Copaxone (Glatiramer Acetate) 20 Mg/1 Ml Syringekit 20 Mg SQ Amlodipine Besylate 5 Mg Tablet 5 Mg PO DAILY Oxybutynin Chloride 5 Mg Tablet 5 Mg PO BID Novolog Flexpen (Insulin Aspart) 100 Unit/1 Ml Insuln.pen 100 Unit SQ 8 units tid ac Atorvastatin Calcium 20 Mg Tablet 20 Mg PO DAILY Losartan Potassium 100 Mg Tablet 50 Mg PO DAILY Levothyroxine Sodium 125 Mcg Tablet 125 Mcg PO DAILYAC Vitals/I & O Vital Sign - Last 24 Hours 06/07/16 06/07/16 06/07/16 06/07/16 11:15 11:55 15:00 15:45 Temp 97.8 98.4 97.8 98.4 Pulse 95 101 Resp 20 21 B/P 113/55 131/61 Pulse Ox 95 96 O2 Delivery Room Air Room Air Room Air Room Air 06/07/16 06/07/16 06/07/16 06/07/16 18:27 19:00 20:00 23:00 Temp 98.6 98.9 98.6 98.9 Pulse 107 91 Resp 20 18 B/P 136/55 130/55 Pulse Ox 93 93 O2 Delivery Room Air Room Air O2 Flow Rate 2.0 06/08/16 06/08/16 06/08/16 06/08/16 03:00 07:00 07:34 08:07 Temp 98.5 98.1 98.5 98.1 Pulse 90 88 Resp 16 22 B/P 142/60 162/59 Pulse Ox 95 98 96 O2 Delivery Room Air Room Air Room Air 06/08/16 06/08/16 08:24 08:25 Pulse 90 90 B/P 142/60 142/60 Intake and Output 06/07/16 06/07/16 06/08/16 15:00 23:00 07:00 Intake Total 350 ml 400 ml Output Total 550 ml Balance -200 ml 400 ml GINO MARTINEZ MD Jun 08, 2016 09:56
[2016-06-08 11:00] VITALS: BP 141/63
--- NOTE | 2016-06-08 12:19 | PDOC ---
PULMONARY PROGRESS NOTES Subjective Feeling improved, no complaints. Vitals Vital Signs Date Time Temp Pulse Resp B/P Pulse Ox O2 Delivery O2 Flow Rate FiO2 06/08/16 11:22 97 Room Air 06/08/16 11:00 98.2 90 22 141/63 98.2 06/07/16 20:00 2.0 ROS: No Nausea, No Chest Pain, No Abdominal Pain General: Alert, Oriented X4, No acute distress Lungs: Clear Cardiovascular: S1, S2 Abdomen: Soft, Non-tender Neuro Exam: Alert, Oriented, Normal Speech Extremities: No Edema Skin: Warm, Dry Labs Laboratory Tests Test 06/06/16 16:43 06/06/16 20:35 06/07/16 07:27 06/07/16 08:50 Glucose (Fingerstick) 79mg/dL (70-99) 238mg/dL (70-99) 238mg/dL (70-99) White Blood Count 12.4x10^3/uL (4.0-11.0) Red Blood Count 3.78x10^6/uL (3.50-5.40) Hemoglobin 11.3g/dL (12.0-15.5) Hematocrit 33.9% (36.0-47.0) Mean Corpuscular Volume 90fL (79-100) Mean Corpuscular Hemoglobin 30pg (25-35) Mean Corpuscular Hemoglobin Concent 33g/dL (31-37) Red Cell Distribution Width 13.6% (11.5-14.5) Platelet Count 191x10^3/uL (140-400) Neutrophils (%) (Auto) 65% (31-73) Lymphocytes (%) (Auto) 26% (24-48) Monocytes (%) (Auto) 8% (0-9) Eosinophils (%) (Auto) 2% (0-3) Basophils (%) (Auto) 0% (0-3) Neutrophils # (Auto) 8.0x10^3uL (1.8-7.7) Lymphocytes # (Auto) 3.2x10^3/uL (1.0-4.8) Monocytes # (Auto) 0.9x10^3/uL (0.0-1.1) Eosinophils # (Auto) 0.3x10^3/uL (0.0-0.7) Basophils # (Auto) 0.0x10^3/uL (0.0-0.2) Sodium Level 136mmol/L (136-145) Potassium Level 3.4mmol/L (3.5-5.1) Chloride Level 97mmol/L (98-107) Carbon Dioxide Level 30mmol/L (21-32) Anion Gap 9 (6-14) Blood Urea Nitrogen 19mg/dL (7-20) Creatinine 0.9mg/dL (0.6-1.0) Estimated GFR (Cockcroft-Gault) 62.6 Glucose Level 281mg/dL (70-99) Calcium Level 8.7mg/dL (8.5-10.1) Test 06/07/16 11:43 06/07/16 16:22 06/07/16 21:11 06/08/16 02:57 Glucose (Fingerstick) 320mg/dL (70-99) 230mg/dL (70-99) 222mg/dL (70-99) 204mg/dL (70-99) Test 06/08/16 05:00 06/08/16 07:29 06/08/16 10:53 White Blood Count 10.2x10^3/uL (4.0-11.0) Red Blood Count 3.64x10^6/uL (3.50-5.40) Hemoglobin 11.0g/dL (12.0-15.5) Hematocrit 33.3% (36.0-47.0) Mean Corpuscular Volume 91fL (79-100) Mean Corpuscular Hemoglobin 30pg (25-35) Mean Corpuscular Hemoglobin Concent 33g/dL (31-37) Red Cell Distribution Width 13.5% (11.5-14.5) Platelet Count 201x10^3/uL (140-400) Neutrophils (%) (Auto) 55% (31-73) Lymphocytes (%) (Auto) 33% (24-48) Monocytes (%) (Auto) 8% (0-9) Eosinophils (%) (Auto) 3% (0-3) Basophils (%) (Auto) 1% (0-3) Neutrophils # (Auto) 5.7x10^3uL (1.8-7.7) Lymphocytes # (Auto) 3.3x10^3/uL (1.0-4.8) Monocytes # (Auto) 0.8x10^3/uL (0.0-1.1) Eosinophils # (Auto) 0.3x10^3/uL (0.0-0.7) Basophils # (Auto) 0.1x10^3/uL (0.0-0.2) Sodium Level 140mmol/L (136-145) Potassium Level 3.6mmol/L (3.5-5.1) Chloride Level 102mmol/L (98-107) Carbon Dioxide Level 27mmol/L (21-32) Anion Gap 11 (6-14) Blood Urea Nitrogen 15mg/dL (7-20) Creatinine 0.8mg/dL (0.6-1.0) Estimated GFR (Cockcroft-Gault) 71.8 Glucose Level 192mg/dL (70-99) Calcium Level 8.7mg/dL (8.5-10.1) Glucose (Fingerstick) 191mg/dL (70-99) 263mg/dL (70-99) Laboratory Tests Test 06/07/16 16:22 06/07/16 21:11 06/08/16 02:57 06/08/16 05:00 Glucose (Fingerstick) 230mg/dL (70-99) 222mg/dL (70-99) 204mg/dL (70-99) White Blood Count 10.2x10^3/uL (4.0-11.0) Red Blood Count 3.64x10^6/uL (3.50-5.40) Hemoglobin 11.0g/dL (12.0-15.5) Hematocrit 33.3% (36.0-47.0) Mean Corpuscular Volume 91fL (79-100) Mean Corpuscular Hemoglobin 30pg (25-35) Mean Corpuscular Hemoglobin Concent 33g/dL (31-37) Red Cell Distribution Width 13.5% (11.5-14.5) Platelet Count 201x10^3/uL (140-400) Neutrophils (%) (Auto) 55% (31-73) Lymphocytes (%) (Auto) 33% (24-48) Monocytes (%) (Auto) 8% (0-9) Eosinophils (%) (Auto) 3% (0-3) Basophils (%) (Auto) 1% (0-3) Neutrophils # (Auto) 5.7x10^3uL (1.8-7.7) Lymphocytes # (Auto) 3.3x10^3/uL (1.0-4.8) Monocytes # (Auto) 0.8x10^3/uL (0.0-1.1) Eosinophils # (Auto) 0.3x10^3/uL (0.0-0.7) Basophils # (Auto) 0.1x10^3/uL (0.0-0.2) Sodium Level 140mmol/L (136-145) Potassium Level 3.6mmol/L (3.5-5.1) Chloride Level 102mmol/L (98-107) Carbon Dioxide Level 27mmol/L (21-32) Anion Gap 11 (6-14) Blood Urea Nitrogen 15mg/dL (7-20) Creatinine 0.8mg/dL (0.6-1.0) Estimated GFR (Cockcroft-Gault) 71.8 Glucose Level 192mg/dL (70-99) Calcium Level 8.7mg/dL (8.5-10.1) Test 06/08/16 07:29 06/08/16 10:53 Glucose (Fingerstick) 191mg/dL (70-99) 263mg/dL (70-99) Medications Active Scripts Medications Dose Route/Sig Days Date Category Dose Instructions Levemir (Insulin Detemir) 100 Unit/1 Ml Vial 6 Unit SQ HS 06/05/16 Reported Levemir (Insulin Detemir) 100 Unit/1 Ml Vial 10 Unit SQ DAILY08 06/05/16 Reported Hydrocodone-Apap 5-325 (Hydrocodone Bit/Acetaminophen) 1 Each Tablet 1 Tab PO PRN Q6HRS PRN 05/12/16 Rx Indapamide 1.25 Mg Tablet 05/08/16 Reported Indapamide 1.25 Mg Tablet 05/08/16 Reported Indapamide 1.25 Mg Tablet 05/08/16 Reported Indapamide 1.25 Mg Tablet 05/08/16 Reported Clonazepam 1 Mg Tablet 05/08/16 Reported Copaxone (Glatiramer Acetate) 40 Mg/1 Ml Syringe 40 Mg SQ 3X/WEEK 04/20/16 Reported Indapamide 1.25 Mg Tablet 1 Tab PO DAILY 11/26/15 Reported Omeprazole 20 Mg Capsule.dr 1 Cap PO DAILY 09/18/15 Reported Levemir Flextouch (Insulin Detemir) 100 Unit/1 Ml Insuln.pen 14 Unit SQ HS 09/17/15 Reported Hydrocodone-Apap 5-325 (Hydrocodone Bit/Acetaminophen) 1 Each Tablet 1 Tab PO PRN Q6HRS PRN 09/17/15 Reported Meclizine Hcl 25 Mg Tablet 1 Tab PO PRN TID 09/17/15 Reported Clonazepam 0.5 Mg Tablet 0.5 Mg PO TID 09/17/15 Reported Baclofen 10 Mg Tablet 5 Mg PO TID 09/19/14 Reported Copaxone (Glatiramer Acetate) 20 Mg/1 Ml Syringekit 20 Mg SQ 09/19/14 Reported Amlodipine Besylate 5 Mg Tablet 5 Mg PO DAILY 12/01/13 Reported Oxybutynin Chloride 5 Mg Tablet 5 Mg PO BID 12/01/13 Reported Novolog Flexpen (Insulin Aspart) 100 Unit/1 Ml Insuln.pen 100 Unit SQ 12/01/13 Reported 8 units tid ac Atorvastatin Calcium 20 Mg Tablet 20 Mg PO DAILY 12/01/13 Reported Losartan Potassium 100 Mg Tablet 50 Mg PO DAILY 12/01/13 Reported Levothyroxine Sodium 125 Mcg Tablet 125 Mcg PO DAILYAC 12/01/[address] Chest : 06/05/16: Findings: No axillary lymphadenopathy is seen. There is an azygos lymph node measuring 8 mm. Evaluation for hilar lymphadenopathy is difficult without IV contrast. There is a mass or nodular infiltrate within the medial aspect of the right upper lobe. It extends along the medial aspect of the right upper lobe and the lateral border of the upper right mediastinum to the right hilum. Therefore, measurements are difficult without IV contrast to separate from hilar vessels. However, it measures at least 3.9 cm in vertical dimension and 2.6 cm in transverse dimension and 2.5 cm in AP dimension. There is a spiculated mass within the superior segment of the right lower lobe which measures 2.0 cm. There is a consolidative infiltrate with air bronchograms involving the anterior basal segment of the right lower lobe extending to the fissure. Small ill-defined subcentimeter lung nodules are seen within the lateral aspect of the right upper lobe seen best on images 16 through 19. The left lung field is clear. No pleural effusion or pneumothorax is seen. The proximal bronchial tree is patent. No focal aneurysmal dilatation of the thoracic aorta is seen. The heart size is at the upper limits of normal. No significant pericardial effusion is seen. Calcified atheromatous disease of the coronary arteries is evident. No adrenal mass is seen. No osteolytic process is seen. Impression . 1. High grade fever - however improved - last fever 06/05 @ 20:00. Suspect most likely viral syndrome. 2. Consolidative pneumonia RLL/ RUL postero-medially 3. Right upper lobe density, suspect infectious rather than neoplasm 5. Electrolyte Abnormalities 5. Leukocytosis- continue Abx 6. Mild renal insufficiency, suspect due to dehydration. Plan . 1. Continue supportive care 2. Continue Oxygen therapy - wean/titrate as able 3. Continue Abx : Rocephin 4. Follow blood culture results 5. plan on Bronchoscopy today 5. Bronchodilators p.r.n. 6. Follow potassium levels per PCP. 7. f/u ct chest in 4-6 weeks BAY TURNER MD Jun 08, 2016 12:19
--- NOTE | 2016-06-08 12:36 | RAD ---
Portable chest, 06/08/2016: History: Lung mass versus pneumonia Comparison is made to a study from 06/05/2016. There is ongoing right basilar opacity. The recent CT study demonstrated corresponding infiltrate in the anterior segment of the right lower lobe. This infiltrate has worsened slightly with increasing loss of definition of a portion of the adjacent hemidiaphragm. The nodular opacity previously seen in the superior segment of the right lower lobe appears to have resolved. The left chest remains clear. There is no evidence of pleural fluid. IMPRESSION: Slight interval worsening of the right basilar infiltrate suggesting pneumonia.
[2016-06-08] MEDS ORDERED: IV RINGERS,LACTATED 1000ML 1,000 ML IV SCH (12:54)
[2016-06-08] MEDS ORDERED: HYDROMORPHONE 2 MG/ML VIAL. IV PRN (13:00)
[2016-06-08] MEDS ORDERED: ONDANSETRON PF 4 MG/2 ML VIAL. IV PRN (13:00)
[2016-06-08] MEDS ORDERED: PROCHLORPERAZINE 10 MG/2 ML VIAL. IV PRN (13:00)
[2016-06-08] MEDS ORDERED: FENTANYL PF 100 MCG/2 ML VIAL. IV PRN ×2 (13:00)
[2016-06-08] MEDS ORDERED: LIDOCAINE 1% 1 ML SYRINGE. ID PRN (13:00)
[2016-06-08] MEDS ORDERED: MORPHINE SULFATE 2 MG/ML DISP.SYRIN. IV PRN (13:00)
[2016-06-08] MEDS ORDERED: PROPOFOL 20 ML IV ONE (13:32)
[2016-06-08] MEDS ORDERED: EPINEPHRINE 1 MG/10 ML DISP.SYRIN. ONE (13:50)
[2016-06-08] MEDS ORDERED: PHENYLEPHRINE 0.5% NASAL SPRAY 15ML BOTTLE. NS PRN (14:00)
--- NOTE | 2016-06-08 14:35 | PDOC4 ---
PROCEDURE Procedure dictated Bronch no endobronchial lesion epistaxis post bronch, controlled with pressure / epi /lokesh squirts BAY TURNER MD Jun 08, 2016 14:35
[2016-06-08 15:00] VITALS: BP 113/49
[2016-06-08] MEDS: ENOXAPARIN 40 MG/0.4 ML DISP.SYRIN. SQ SCH (15:24)
[2016-06-08] MEDS: CEFTRIAXONE SODIUM 1 GM in IV NORMAL SALINE 50ML 50 ML IV SCH (16:05)
[2016-06-08] MEDS: COPAXONE 40 MG SQ SCH (16:06)
--- NOTE | 2016-06-08 16:33 | OP ---
DATE OF SURGERY: PROCEDURE: Bronchoscopy. INDICATIONS: Lung mass. DESCRIPTION OF PROCEDURE: Informed consent was obtained from the patient. Risks and benefits were explained. She agreed to proceed with the procedure. Sedation was accomplished with propofol by Anesthesia. Bronchoscope was introduced initially from the right nostril; however, the nasal passageway was tight and was withdrawn and passed through the left nostril easily. Upper airway was passed. Vocal cords move equally with respiration. Trachea was entered. No tracheal lesions seen. Misty sharp. Right lung was examined. All subsegments of right upper, right middle, and right lower lobe were examined. There were no endobronchial lesions seen. Mucosa was slightly inflamed in the right upper and right lower lobes. Bronchoalveolar lavage performed from the right upper lobe and right lower lobe. During the bronchoscopy, I noticed that blood was trickling down from the trachea into the airway, as probably she has developed some epistaxis. All the blood was aspirated. Left lung was examined, no endobronchial lesions seen in the left upper lobe, lingula, or left lower lobe. The patient tolerated the procedure well. Postprocedure, the patient did have epistaxis. Pressure was applied to both the nostrils along with squirts of epinephrine were introduced into the nostrils as well. The patient did have improvement in epistaxis. We will be watching it closely. IMPRESSION: 1. No definite endobronchial lesion seen. 2. Bronchoalveolar lavage performed from right upper lobe and right lower lobe. 3. Epistaxis developed post-bronchoscopy and was managed with pressure and epinephrine squirts into the nostril. It improved. We will be watching it closely. 4. Follow cultures and cytology. BAY TURNER MD DR: [email or web address]/amee JOB#: [id number] / [id number]
[2016-06-08] MEDS ORDERED: INSULIN ASPART 300 UNITS/3 ML INSULN.PEN SQ ONE (18:45)
[2016-06-08 19:00] VITALS: BP 144/64
[2016-06-08] MEDS ORDERED: AZITHROMYCIN 500 MG in IV NORMAL SALINE 250ML 250 ML IV ONE (20:30)
[2016-06-08] MEDS: ATORVASTATIN CALCIUM 20 MG TABLET PO SCH (20:46)
[2016-06-08] MEDS: HYDROCODONE/APAP 5/325MG TABLET. PO PRN (21:16)
[2016-06-08 23:00] VITALS: BP 109/57
[2016-06-09 03:00] VITALS: BP 120/58
[2016-06-09 06:28] LABS: BASO # 0.1 x10^3/uL (0.0-0.2); BASO % 1 % (0-3); CALCIUM 9.4 mg/dL (8.5-10.1); EOS % 1 % (0-3); GFR 55.5; LYMPH # 3.6 x10^3/uL (1.0-4.8); LYMPH % 23 % (24-48); MEAN CORPUSCULAR HEMOGLOBIN 30 pg (25-35); MEAN CORPUSCULAR HGB CONC 32 g/dL (31-37); MEAN CORPUSCULAR VOLUME 93 fL (79-100); MONO % 8 % (0-9); NEUT % 67 % (31-73); PLATELET COUNT 250 x10^3/uL (140-400); POTASSIUM 4.6 mmol/L (3.5-5.1); RED CELL DISTRIBUTION WIDTH 13.6 % (11.5-14.5); WHITE BLOOD COUNT 15.4 x10^3/uL (4.0-11.0)
[2016-06-09 07:07] VITALS: BP 124/63
[2016-06-09] MEDS: LEVOTHYROXINE 125 MCG TABLET PO SCH (07:38)
[2016-06-09] MEDS: PANTOPRAZOLE 40 MG TABLET. PO SCH (08:12)
[2016-06-09] MEDS: OXYBUTYNIN CHLORIDE 5 MG TABLET PO SCH ×2 (08:13→21:59)
[2016-06-09] MEDS: DOCUSATE SODIUM 100 MG CAPSULE PO SCH (08:13)
[2016-06-09] MEDS: LOSARTAN POTASSIUM 50 MG TABLET. PO SCH (08:13)
[2016-06-09] MEDS: GUAIFENESIN ER 600 MG TABLET.ER PO SCH ×2 (08:14→21:59)
[2016-06-09] MEDS: INDAPAMIDE 2.5 MG TABLET PO SCH (08:14)
[2016-06-09] MEDS: CLONAZEPAM 0.5 MG TABLET PO SCH ×3 (08:14→21:58)
[2016-06-09] MEDS: BACLOFEN 10 MG TABLET PO SCH ×2 (08:14→14:10)
[2016-06-09] MEDS: AMLODIPINE BESYLATE 5 MG TABLET PO SCH (08:15)
[2016-06-09] MEDS: INSULIN DETEMIR 300 UNITS/3 ML INSULN.PEN. SQ SCH ×2 (08:24→22:06)
[2016-06-09] MEDS: INSULIN ASPART 300 UNITS/3 ML INSULN.PEN SQ SCH ×7 (08:25→21:00)
[2016-06-09] MEDS: IPRATRPIUM/ALBUTEROL 0.5/2.5MG 3 ML NEBU. NEB SCH ×4 (08:34→19:48)
[2016-06-09] MEDS ORDERED: AZITHROMYCIN 250 MG TABLET PO SCH (09:00)
[2016-06-09 10:56] VITALS: BP 122/61
--- NOTE | 2016-06-09 10:59 | PDOC ---
Infectious Disease Note ROS ROS GEN: Denies fevers, chills, sweats HEENT: Denies blurred vision, sore throat CV: Denies chest pain RESP: Denies shortness of air, cough GI: Denies n/v/d NEURO: Denies confusion, dizziness MSK: Denies weakness, joint pain/swelling Vital Sign Vital Signs Vital Signs Date Time Temp Pulse Resp B/P Pulse Ox O2 Delivery O2 Flow Rate FiO2 06/09/16 08:35 95 Room Air 06/09/16 08:15 91 124/63 06/09/16 07:07 98.6 16 98.6 06/08/16 21:16 5.0 Physical Exam PHYSICAL EXAM GENERAL: NAD, Alert HEENT: PERRL, OC/OP NECK: Supple, no JVD, no LN LUNGS: Clear HEART: S1S2, no gallop, no murmur ABD: Soft, NT, no organomegaly, no rebound EXT: No edema, no cyanosis PRESIDING JUDGE: Alert, oriented x 3, no focal neurologic deficit SKIN: No rash IV: ok Labs Lab Laboratory Tests Test 06/08/16 10:53 06/08/16 15:22 06/08/16 17:18 06/08/16 21:05 Glucose (Fingerstick) 263mg/dL (70-99) 342mg/dL (70-99) 345mg/dL (70-99) 113mg/dL (70-99) Test 06/08/16 23:39 06/08/16 23:53 06/09/16 00:07 06/09/16 06:05 Glucose (Fingerstick) 48mg/dL (70-99) 57mg/dL (70-99) 94mg/dL (70-99) White Blood Count 15.4x10^3/uL (4.0-11.0) Red Blood Count 4.00x10^6/uL (3.50-5.40) Hemoglobin 12.0g/dL (12.0-15.5) Hematocrit 37.0% (36.0-47.0) Mean Corpuscular Volume 93fL (79-100) Mean Corpuscular Hemoglobin 30pg (25-35) Mean Corpuscular Hemoglobin Concent 32g/dL (31-37) Red Cell Distribution Width 13.6% (11.5-14.5) Platelet Count 250x10^3/uL (140-400) Neutrophils (%) (Auto) 67% (31-73) Lymphocytes (%) (Auto) 23% (24-48) Monocytes (%) (Auto) 8% (0-9) Eosinophils (%) (Auto) 1% (0-3) Basophils (%) (Auto) 1% (0-3) Neutrophils # (Auto) 10.3x10^3uL (1.8-7.7) Lymphocytes # (Auto) 3.6x10^3/uL (1.0-4.8) Monocytes # (Auto) 1.3x10^3/uL (0.0-1.1) Eosinophils # (Auto) 0.2x10^3/uL (0.0-0.7) Basophils # (Auto) 0.1x10^3/uL (0.0-0.2) Sodium Level 133mmol/L (136-145) Potassium Level 4.6mmol/L (3.5-5.1) Chloride Level 97mmol/L (98-107) Carbon Dioxide Level 24mmol/L (21-32) Anion Gap 12 (6-14) Blood Urea Nitrogen 16mg/dL (7-20) Creatinine 1.0mg/dL (0.6-1.0) Estimated GFR (Cockcroft-Gault) 55.5 Glucose Level 422mg/dL (70-99) Calcium Level 9.4mg/dL (8.5-10.1) Test 06/09/16 07:04 Glucose (Fingerstick) 414mg/dL (70-99) Objective Assessment Fever Lung nodular infiltrates - Leukocytosis Aerococcus in urine Plan Plan of Care at risk for atypical infections mycobacterium D/c azithromycin Add Doxy/Vanc and Zosyn F/u labs and cults TB spot Thank you # [id number] YVETTE BRUCE MD Jun 09, 2016 10:59
[2016-06-09] MEDS ORDERED: VANCOMYCIN 2 GM in IV NORMAL SALINE 500ML BAG 500 ML IV ONE (11:00)
--- NOTE | 2016-06-09 11:49 | PDOC ---
PROGRESS NOTES Chief Complaint Chief Complaint cough, fever Fevers, Right upper lung infiltrate CAP, right lower lob 2c nodule HTN Hyperglycemia Urinary incontinence Plan 1. s/p Bronchoscopy , follow broach cultures. 2 abx per ID 3. add DuoNeb, albuterol, 4. SSI. 5. labs reviewed, 6. add oxybutynin History of Present Illness History of Present Illness cough fever no chills doing better Vitals Vitals Vital Signs Date Time Temp Pulse Resp B/P Pulse Ox O2 Delivery O2 Flow Rate FiO2 06/09/16 11:00 Room Air 06/09/16 10:56 98.2 99 17 122/61 92 22.0 98.2 Physical Exam General: Alert, Oriented X3, Cooperative Heart: Regular rate, Normal S1, Normal S2 Lungs: Clear, Crackles, Other Abdomen: Normal bowel sounds, Soft Extremities: No clubbing, No cyanosis Skin: No rashes Labs LABS Laboratory Tests Test 06/08/16 15:22 06/08/16 17:18 06/08/16 21:05 06/08/16 23:39 Glucose (Fingerstick) 342mg/dL (70-99) 345mg/dL (70-99) 113mg/dL (70-99) 48mg/dL (70-99) Test 06/08/16 23:53 06/09/16 00:07 06/09/16 06:05 06/09/16 07:04 Glucose (Fingerstick) 57mg/dL (70-99) 94mg/dL (70-99) 414mg/dL (70-99) White Blood Count 15.4x10^3/uL (4.0-11.0) Red Blood Count 4.00x10^6/uL (3.50-5.40) Hemoglobin 12.0g/dL (12.0-15.5) Hematocrit 37.0% (36.0-47.0) Mean Corpuscular Volume 93fL (79-100) Mean Corpuscular Hemoglobin 30pg (25-35) Mean Corpuscular Hemoglobin Concent 32g/dL (31-37) Red Cell Distribution Width 13.6% (11.5-14.5) Platelet Count 250x10^3/uL (140-400) Neutrophils (%) (Auto) 67% (31-73) Lymphocytes (%) (Auto) 23% (24-48) Monocytes (%) (Auto) 8% (0-9) Eosinophils (%) (Auto) 1% (0-3) Basophils (%) (Auto) 1% (0-3) Neutrophils # (Auto) 10.3x10^3uL (1.8-7.7) Lymphocytes # (Auto) 3.6x10^3/uL (1.0-4.8) Monocytes # (Auto) 1.3x10^3/uL (0.0-1.1) Eosinophils # (Auto) 0.2x10^3/uL (0.0-0.7) Basophils # (Auto) 0.1x10^3/uL (0.0-0.2) Sodium Level 133mmol/L (136-145) Potassium Level 4.6mmol/L (3.5-5.1) Chloride Level 97mmol/L (98-107) Carbon Dioxide Level 24mmol/L (21-32) Anion Gap 12 (6-14) Blood Urea Nitrogen 16mg/dL (7-20) Creatinine 1.0mg/dL (0.6-1.0) Estimated GFR (Cockcroft-Gault) 55.5 Glucose Level 422mg/dL (70-99) Calcium Level 9.4mg/dL (8.5-10.1) Test 06/09/16 11:28 Glucose (Fingerstick) 295mg/dL (70-99) Assessment and Plan Assessmemt and Plan Problems Medical Problems: (1) Cough Status: Acute (2) Hypokalemia Status: Acute Problems: Comment Review of Relevant I have reviewed the following items estrella (where applicable) has been applied. Labs Laboratory Tests Test 06/07/16 16:22 06/07/16 21:11 06/08/16 02:57 06/08/16 05:00 Glucose (Fingerstick) 230mg/dL (70-99) 222mg/dL (70-99) 204mg/dL (70-99) White Blood Count 10.2x10^3/uL (4.0-11.0) Red Blood Count 3.64x10^6/uL (3.50-5.40) Hemoglobin 11.0g/dL (12.0-15.5) Hematocrit 33.3% (36.0-47.0) Mean Corpuscular Volume 91fL (79-100) Mean Corpuscular Hemoglobin 30pg (25-35) Mean Corpuscular Hemoglobin Concent 33g/dL (31-37) Red Cell Distribution Width 13.5% (11.5-14.5) Platelet Count 201x10^3/uL (140-400) Neutrophils (%) (Auto) 55% (31-73) Lymphocytes (%) (Auto) 33% (24-48) Monocytes (%) (Auto) 8% (0-9) Eosinophils (%) (Auto) 3% (0-3) Basophils (%) (Auto) 1% (0-3) Neutrophils # (Auto) 5.7x10^3uL (1.8-7.7) Lymphocytes # (Auto) 3.3x10^3/uL (1.0-4.8) Monocytes # (Auto) 0.8x10^3/uL (0.0-1.1) Eosinophils # (Auto) 0.3x10^3/uL (0.0-0.7) Basophils # (Auto) 0.1x10^3/uL (0.0-0.2) Sodium Level 140mmol/L (136-145) Potassium Level 3.6mmol/L (3.5-5.1) Chloride Level 102mmol/L (98-107) Carbon Dioxide Level 27mmol/L (21-32) Anion Gap 11 (6-14) Blood Urea Nitrogen 15mg/dL (7-20) Creatinine 0.8mg/dL (0.6-1.0) Estimated GFR (Cockcroft-Gault) 71.8 Glucose Level 192mg/dL (70-99) Calcium Level 8.7mg/dL (8.5-10.1) Test 06/08/16 07:29 06/08/16 10:53 06/08/16 15:22 06/08/16 17:18 Glucose (Fingerstick) 191mg/dL (70-99) 263mg/dL (70-99) 342mg/dL (70-99) 345mg/dL (70-99) Test 06/08/16 21:05 06/08/16 23:39 06/08/16 23:53 06/09/16 00:07 Glucose (Fingerstick) 113mg/dL (70-99) 48mg/dL (70-99) 57mg/dL (70-99) 94mg/dL (70-99) Test 06/09/16 06:05 06/09/16 07:04 06/09/16 11:28 White Blood Count 15.4x10^3/uL (4.0-11.0) Red Blood Count 4.00x10^6/uL (3.50-5.40) Hemoglobin 12.0g/dL (12.0-15.5) Hematocrit 37.0% (36.0-47.0) Mean Corpuscular Volume 93fL (79-100) Mean Corpuscular Hemoglobin 30pg (25-35) Mean Corpuscular Hemoglobin Concent 32g/dL (31-37) Red Cell Distribution Width 13.6% (11.5-14.5) Platelet Count 250x10^3/uL (140-400) Neutrophils (%) (Auto) 67% (31-73) Lymphocytes (%) (Auto) 23% (24-48) Monocytes (%) (Auto) 8% (0-9) Eosinophils (%) (Auto) 1% (0-3) Basophils (%) (Auto) 1% (0-3) Neutrophils # (Auto) 10.3x10^3uL (1.8-7.7) Lymphocytes # (Auto) 3.6x10^3/uL (1.0-4.8) Monocytes # (Auto) 1.3x10^3/uL (0.0-1.1) Eosinophils # (Auto) 0.2x10^3/uL (0.0-0.7) Basophils # (Auto) 0.1x10^3/uL (0.0-0.2) Sodium Level 133mmol/L (136-145) Potassium Level 4.6mmol/L (3.5-5.1) Chloride Level 97mmol/L (98-107) Carbon Dioxide Level 24mmol/L (21-32) Anion Gap 12 (6-14) Blood Urea Nitrogen 16mg/dL (7-20) Creatinine 1.0mg/dL (0.6-1.0) Estimated GFR (Cockcroft-Gault) 55.5 Glucose Level 422mg/dL (70-99) Calcium Level 9.4mg/dL (8.5-10.1) Glucose (Fingerstick) 414mg/dL (70-99) 295mg/dL (70-99) Laboratory Tests Test 06/08/16 15:22 06/08/16 17:18 06/08/16 21:05 06/08/16 23:39 Glucose (Fingerstick) 342mg/dL (70-99) 345mg/dL (70-99) 113mg/dL (70-99) 48mg/dL (70-99) Test 06/08/16 23:53 06/09/16 00:07 06/09/16 06:05 06/09/16 07:04 Glucose (Fingerstick) 57mg/dL (70-99) 94mg/dL (70-99) 414mg/dL (70-99) White Blood Count 15.4x10^3/uL (4.0-11.0) Red Blood Count 4.00x10^6/uL (3.50-5.40) Hemoglobin 12.0g/dL (12.0-15.5) Hematocrit 37.0% (36.0-47.0) Mean Corpuscular Volume 93fL (79-100) Mean Corpuscular Hemoglobin 30pg (25-35) Mean Corpuscular Hemoglobin Concent 32g/dL (31-37) Red Cell Distribution Width 13.6% (11.5-14.5) Platelet Count 250x10^3/uL (140-400) Neutrophils (%) (Auto) 67% (31-73) Lymphocytes (%) (Auto) 23% (24-48) Monocytes (%) (Auto) 8% (0-9) Eosinophils (%) (Auto) 1% (0-3) Basophils (%) (Auto) 1% (0-3) Neutrophils # (Auto) 10.3x10^3uL (1.8-7.7) Lymphocytes # (Auto) 3.6x10^3/uL (1.0-4.8) Monocytes # (Auto) 1.3x10^3/uL (0.0-1.1) Eosinophils # (Auto) 0.2x10^3/uL (0.0-0.7) Basophils # (Auto) 0.1x10^3/uL (0.0-0.2) Sodium Level 133mmol/L (136-145) Potassium Level 4.6mmol/L (3.5-5.1) Chloride Level 97mmol/L (98-107) Carbon Dioxide Level 24mmol/L (21-32) Anion Gap 12 (6-14) Blood Urea Nitrogen 16mg/dL (7-20) Creatinine 1.0mg/dL (0.6-1.0) Estimated GFR (Cockcroft-Gault) 55.5 Glucose Level 422mg/dL (70-99) Calcium Level 9.4mg/dL (8.5-10.1) Test 06/09/16 11:28 Glucose (Fingerstick) 295mg/dL (70-99) Microbiology 06/05/16 Blood Culture - Preliminary, Resulted NO GROWTH AFTER 3 DAYS 06/08/16 Gram Stain - Final, Complete 06/05/16 Urine Culture - Final, Complete 06/05/16 Urine Culture Result 1 (GARETH) - Final, Complete Medications Current Medications Potassium Chloride (KCl Premix 10meq) 100 ml @ 100 mls/hr Q1H IV Last administered on 06/05/16 17:00; Start 06/05/16 at 10:00; Stop 06/05/16 at 13:59 ; Status DC Ibuprofen (Motrin) 800 mg 1X ONCE PO Last administered on 06/05/16 12:59; Start 06/05/16 at 13:00; Stop 06/05/16 at 13:01; Status DC Ibuprofen 800 mg 800 mg STK-MED ONCE PO ; Start 06/05/16 at 12:57; Stop at 12:58; Status DC Ceftriaxone Sodium/Sodium Chloride (Rocephin/Iv Sodium Chloride 0.9% 50ml) 50 ml @ 100 mls/hr Q24H IV Last administered on 06/08/16 16:05; Start 06/05/16 at 15:30; Stop 06/09/16 at 10:49; Status DC Amlodipine Besylate (Norvasc) 5 mg DAILY PO Last administered on 06/09/16 08: 15; Start 06/06/16 at 09:00 Atorvastatin Calcium (Lipitor) 20 mg QHS PO Last administered on 06/08/16 20: 46; Start 06/05/16 at 21:00 Baclofen (Lioresal) 5 mg TID PO Last administered on 06/09/16 08:14; Start at 21:00 Clonazepam (Klonopin) 0.5 mg TID PO Last administered on 06/09/16 08:14; Start 06/05/16 at 21:00 Insulin Aspart (Novolog) 8 units TIDBFRMEAL SQ Last administered on 06/09/16 08:25; Start 06/06/16 at 07:30 Levothyroxine Sodium (Synthroid) 125 mcg DAILY07 PO Last administered on 07:38; Start 06/06/16 at 07:00 Oxybutynin Chloride (Ditropan) 5 mg BID PO Last administered on 06/09/16 08:13 ; Start 06/05/16 at 21:00 Insulin Detemir (Levemir) 6 units QHS SQ Last administered on 06/05/16 22:16; Start 06/05/16 at 21:00; Stop 06/06/16 at 14:32; Status DC Insulin Detemir (Levemir) 10 units DAILY08 SQ Last administered on 06/09/16 08 :24; Start 06/06/16 at 08:00 Losartan Potassium (Cozaar) 50 mg DAILY PO Last administered on 06/09/16 08:13 ; Start 06/06/16 at 09:00 Meclizine HCl (Antivert) 25 mg PRN TID PRN PO DIZZINESS; Start 06/05/16 at 16: 45 Pantoprazole Sodium (Protonix) 40 mg DAILYAC PO Last administered on 06/09/16 08:12; Start 06/06/16 at 07:30 Indapamide (Lozol) 1.25 mg DAILY PO Last administered on 06/09/16 08:14; Start 06/06/16 at 09:00 Non-Formulary Medication 40 mg 3X/WEEK SQ ; Start 06/08/16 at 09:00; Status UNV Acetaminophen (Tylenol) 650 mg PRN Q6HRS PRN NV MILD PAIN / TEMP; Start at 16:45; Stop 06/05/16 at 17:12; Status DC Insulin Aspart (Novolog) 20 units 1X ONCE SQ Last administered on 06/05/16 17 :51; Start 06/05/16 at 16:45; Stop 06/05/16 at 16:51; Status DC Insulin Aspart (Novolog) 0-5 UNITS TIDWMEALS SQ Last administered on 06/06/16 12:20; Start 06/05/16 at 17:00; Stop 06/06/16 at 14:32; Status DC Dextrose 12.5 gm PRN Q15MIN PRN IV SEE COMMENTS; Start 06/05/16 at 16:45 Non-Formulary Medication 1 ea QMWF SQ Last administered on 06/08/16 16:06; Start 06/05/16 at 16:00 Acetaminophen (Tylenol) 650 mg PRN Q6HRS PRN PO MILD PAIN / TEMP Last administered on 06/06/16 13:14; Start 06/05/16 at 17:15 Docusate Sodium (Colace) 100 mg PRN DAILY PRN PO CONSTIPATION; Start 06/05/16 at 20:37 Docusate Sodium 100 mg 100 mg DAILY PO Last administered on 06/09/16 08:13; Start 06/06/16 at 09:00 Potassium Chloride (KCl Premix 10meq) 100 ml @ 100 mls/hr Q1H IV Last administered on 06/06/16 20:51; Start 06/06/16 at 07:00; Stop 06/06/16 at 10:59 ; Status DC Guaifenesin/ Codeine Phosphate (Robitussin Ac) 5 ml PRN Q6HRS PRN PO COUGH Last administered on 06/08/16 15:27; Start 06/06/16 at 13:00 Guaifenesin (Mucinex) 600 mg BID PO Last administered on 06/09/16 08:14; Start 06/06/16 at 13:00 Insulin Detemir (Levemir) 10 units QHS SQ Last administered on 06/06/16 21:01 ; Start 06/06/16 at 21:00; Stop 06/07/16 at 10:04; Status DC Insulin Aspart (Novolog) 0-9 UNITS QIDACHS SQ Last administered on 06/09/16 08 :26; Start 06/06/16 at 16:30 Dextrose 12.5 gm PRN Q15MIN PRN IV SEE COMMENTS; Start 06/06/16 at 14:30; Stop 06/08/16 at 15:55; Status DC Albuterol/ Ipratropium (Duoneb) 3 ml RTQID NEB Last administered on 06/09/16 10:53; Start 06/06/16 at 16:00 Albuterol Sulfate (Ventolin Neb Soln) 2.5 mg PRN Q4HRS PRN NEB SHORTNESS OF BREATH Last administered on 06/08/16 13:00; Start 06/06/16 at 14:30 Enoxaparin Sodium (Lovenox 40mg Syringe) 40 mg Q24H SQ Last administered on 15:24; Start 06/06/16 at 15:00 Insulin Detemir (Levemir) 15 units QHS SQ ; Start 06/07/16 at 21:00; Stop at 21:00; Status DC Potassium Chloride (Klor-Con) 40 meq 1X ONCE PO Last administered on 12:06; Start 06/07/16 at 10:15; Stop 06/07/16 at 10:16; Status DC Insulin Detemir (Levemir) 10 units QHS SQ Last administered on 06/07/16 21:44 ; Start 06/07/16 at 21:00 Ondansetron HCl (Zofran) 4 mg PRN Q6HRS PRN IV Nausea; Start 06/08/16 at 13:00 ; Stop 06/09/16 at 12:59 Fentanyl Citrate (Fentanyl 2ml Vial) 25 mcg PRN Q5MIN PRN IV MILD PAIN; Start 06/08/16 at 13:00; Stop 06/09/16 at 12:59 Fentanyl Citrate (Fentanyl 2ml Vial) 50 mcg PRN Q5MIN PRN IV MODERATE PAIN; Start 06/08/16 at 13:00; Stop 06/09/16 at 12:59 Morphine Sulfate 1 mg 1 mg PRN Q10MIN PRN IV SEVERE PAIN; Start 06/08/16 at 13: 00; Stop 06/09/16 at 12:59 Lactated Ringer's (Iv Lactated Ringers) 1,000 ml @ 0 mls/hr Q0M IV Last administered on 06/08/16 12:58; Start 06/08/16 at 12:54; Stop 06/09/16 at 00:53 ; Status DC Lidocaine HCl 2 ml 1X PRN PRN ID IV START; Start 06/08/16 at 13:00; Stop at 12:59 Hydromorphone HCl (Dilaudid) 0.5 mg PRN Q10MIN PRN IV SEV PAIN,Second choice; Start 06/08/16 at 13:00; Stop 06/09/16 at 12:59 Prochlorperazine Edisylate 5 mg 5 mg PACU PRN PRN IV NAUSEA; Start 06/08/16 at 13:00; Stop 06/09/16 at 12:59 Propofol (Diprivan) 20 ml @ As Directed STK-MED ONCE IV ; Start 06/08/16 at 13: 32; Stop 06/08/16 at 13:33; Status DC Epinephrine HCl 1 mg STK-MED ONCE .ROUTE ; Start 06/08/16 at 13:50; Stop at 13:51; Status DC Phenylephrine HCl (Carlos Eduardo-Synephrine 0.5% Nasal) 2 spray PRN Q4HRS PRN NS CONGESTION Last administered on 06/08/16 14:03; Start 06/08/16 at 14:00 Insulin Aspart 20 units 20 units 1X ONCE SQ Last administered on 06/08/16 18: 35; Start 06/08/16 at 18:45; Stop 06/08/16 at 18:46; Status DC Azithromycin/ Sodium Chloride (Zithromax/Iv Sodium Chloride 0.9% 250ml) 250 ml @ 250 mls/hr 1X ONCE IV Last administered on 06/08/16 20:47; Start 06/08/16 at 20:30; Stop 06/08/16 at 21:29; Status DC Azithromycin (Zithromax) 250 mg DAILY PO Last administered on 06/09/16 08:15; Start 06/09/16 at 09:00; Stop 06/09/16 at 10:49; Status DC Acetaminophen/ Hydrocodone Bitart (Lortab 5/325) 1 tab PRN Q4HRS PRN PO PAIN Last administered on 06/08/16 21:16; Start 06/08/16 at 21:15 Vancomycin HCl 1 each 1 each PRN DAILY PRN MC SEE COMMENTS; Start 06/09/16 at 10:30 Piperacillin Sod/ Tazobactam Sod/ Sodium Chloride (Zosyn/Iv Sodium Chloride 0.9 % 50ml) 50 ml @ 100 mls/hr Q6HRS IV ; Start 06/09/16 at 12:00 Doxycycline Hyclate 100 mg 100 mg BID PO ; Start 06/09/16 at 21:00 Vancomycin HCl/ Sodium Chloride (Iv Sodium Chloride 0.9% 500ml Bag) 500 ml @ 250 mls/hr 1X ONCE IV Last administered on 06/09/16t 11:24; Start 06/09/16 at 11:00; Stop 06/09/16 at 12:59 Active Scripts Active Hydrocodone-Apap 5-325 (Hydrocodone Bit/Acetaminophen) 1 Each Tablet 1 Tab PO PRN Q6HRS PRN Reported Levemir (Insulin Detemir) 100 Unit/1 Ml Vial 6 Unit SQ HS Levemir (Insulin Detemir) 100 Unit/1 Ml Vial 10 Unit SQ DAILY08 Indapamide 1.25 Mg Tablet Indapamide 1.25 Mg Tablet Indapamide 1.25 Mg Tablet Indapamide 1.25 Mg Tablet Clonazepam 1 Mg Tablet Copaxone (Glatiramer Acetate) 40 Mg/1 Ml Syringe 40 Mg SQ 3X/WEEK Indapamide 1.25 Mg Tablet 1 Tab PO DAILY Omeprazole 20 Mg Capsule.dr 1 Cap PO DAILY Levemir Flextouch (Insulin Detemir) 100 Unit/1 Ml Insuln.pen 14 Unit SQ HS Hydrocodone-Apap 5-325 (Hydrocodone Bit/Acetaminophen) 1 Each Tablet 1 Tab PO PRN Q6HRS PRN Meclizine Hcl 25 Mg Tablet 1 Tab PO PRN TID Clonazepam 0.5 Mg Tablet 0.5 Mg PO TID Baclofen 10 Mg Tablet 5 Mg PO TID Copaxone (Glatiramer Acetate) 20 Mg/1 Ml Syringekit 20 Mg SQ Amlodipine Besylate 5 Mg Tablet 5 Mg PO DAILY Oxybutynin Chloride 5 Mg Tablet 5 Mg PO BID Novolog Flexpen (Insulin Aspart) 100 Unit/1 Ml Insuln.pen 100 Unit SQ 8 units tid ac Atorvastatin Calcium 20 Mg Tablet 20 Mg PO DAILY Losartan Potassium 100 Mg Tablet 50 Mg PO DAILY Levothyroxine Sodium 125 Mcg Tablet 125 Mcg PO DAILYAC Vitals/I & O Vital Sign - Last 24 Hours 06/08/16 06/08/16 06/08/16 06/08/16 12:52 12:55 13:02 13:58 Temp 98 98.0 Pulse 101 96 Resp 20 20 B/P 133/58 Pulse Ox 97 95 99 O2 Delivery Room Air Room Air Simple Mask O2 Flow Rate 2.0 5 06/08/16 06/08/16 06/08/16 06/08/16 14:10 14:25 14:37 14:45 Temp 97.8 97.8 Pulse 94 94 88 96 Resp 18 16 16 16 B/P 143/52 141/54 135/54 129/51 Pulse Ox 95 98 96 96 O2 Delivery Room Air Room Air Room Air Room Air 06/08/16 06/08/16 06/08/16 06/08/16 15:00 15:56 19:00 20:09 Temp 97.5 99.9 97.5 99.9 Pulse 107 97 Resp 20 B/P 113/49 144/64 Pulse Ox 93 96 96 97 O2 Delivery Room Air Room Air Room Air 06/08/16 06/08/16 06/08/16 06/08/16 20:12 21:16 22:15 23:00 Temp 101.0 101.0 Pulse 103 Resp 20 B/P 109/57 Pulse Ox 97 93 O2 Delivery Room Air Room Air Room Air Room Air O2 Flow Rate 5.0 06/09/16 06/09/16 06/09/16 06/09/16 03:00 07:07 07:43 08:13 Temp 98.8 98.6 98.8 98.6 Pulse 89 91 91 Resp 20 16 B/P 120/58 124/63 124/63 Pulse Ox 92 92 O2 Delivery Room Air Room Air Room Air 06/09/16 06/09/16 06/09/16 06/09/16 08:15 08:35 10:56 11:00 Temp 98.2 98.2 Pulse 91 99 Resp 17 B/P 124/63 122/61 Pulse Ox 95 92 O2 Delivery Room Air Nasal Cannula Room Air O2 Flow Rate 22.0 Intake and Output 06/08/16 06/08/16 06/09/16 15:00 23:00 07:00 Intake Total 970 ml 980 ml Output Total 800 ml 1 ml Balance 170 ml 979 ml GINO MARTINEZ MD Jun 09, 2016 11:49
--- NOTE | 2016-06-09 12:39 | PDOC ---
PULMONARY PROGRESS NOTES Subjective Feeling improved, no complaints. fever 101 last night Vitals Vital Signs Date Time Temp Pulse Resp B/P Pulse Ox O2 Delivery O2 Flow Rate FiO2 06/09/16 11:00 Room Air 06/09/16 10:56 98.2 99 17 122/61 92 22.0 98.2 ROS: No Nausea, No Chest Pain, No Abdominal Pain General: Alert, Oriented X4, No acute distress Lungs: Clear Cardiovascular: S1, S2 Abdomen: Soft, Non-tender Neuro Exam: Alert, Oriented, Normal Speech Extremities: No Edema Skin: Warm, Dry Labs Laboratory Tests Test 06/07/16 16:22 06/07/16 21:11 06/08/16 02:57 06/08/16 05:00 Glucose (Fingerstick) 230mg/dL (70-99) 222mg/dL (70-99) 204mg/dL (70-99) White Blood Count 10.2x10^3/uL (4.0-11.0) Red Blood Count 3.64x10^6/uL (3.50-5.40) Hemoglobin 11.0g/dL (12.0-15.5) Hematocrit 33.3% (36.0-47.0) Mean Corpuscular Volume 91fL (79-100) Mean Corpuscular Hemoglobin 30pg (25-35) Mean Corpuscular Hemoglobin Concent 33g/dL (31-37) Red Cell Distribution Width 13.5% (11.5-14.5) Platelet Count 201x10^3/uL (140-400) Neutrophils (%) (Auto) 55% (31-73) Lymphocytes (%) (Auto) 33% (24-48) Monocytes (%) (Auto) 8% (0-9) Eosinophils (%) (Auto) 3% (0-3) Basophils (%) (Auto) 1% (0-3) Neutrophils # (Auto) 5.7x10^3uL (1.8-7.7) Lymphocytes # (Auto) 3.3x10^3/uL (1.0-4.8) Monocytes # (Auto) 0.8x10^3/uL (0.0-1.1) Eosinophils # (Auto) 0.3x10^3/uL (0.0-0.7) Basophils # (Auto) 0.1x10^3/uL (0.0-0.2) Sodium Level 140mmol/L (136-145) Potassium Level 3.6mmol/L (3.5-5.1) Chloride Level 102mmol/L (98-107) Carbon Dioxide Level 27mmol/L (21-32) Anion Gap 11 (6-14) Blood Urea Nitrogen 15mg/dL (7-20) Creatinine 0.8mg/dL (0.6-1.0) Estimated GFR (Cockcroft-Gault) 71.8 Glucose Level 192mg/dL (70-99) Calcium Level 8.7mg/dL (8.5-10.1) Test 06/08/16 07:29 06/08/16 10:53 06/08/16 15:22 06/08/16 17:18 Glucose (Fingerstick) 191mg/dL (70-99) 263mg/dL (70-99) 342mg/dL (70-99) 345mg/dL (70-99) Test 06/08/16 21:05 06/08/16 23:39 06/08/16 23:53 06/09/16 00:07 Glucose (Fingerstick) 113mg/dL (70-99) 48mg/dL (70-99) 57mg/dL (70-99) 94mg/dL (70-99) Test 06/09/16 06:05 06/09/16 07:04 06/09/16 11:28 White Blood Count 15.4x10^3/uL (4.0-11.0) Red Blood Count 4.00x10^6/uL (3.50-5.40) Hemoglobin 12.0g/dL (12.0-15.5) Hematocrit 37.0% (36.0-47.0) Mean Corpuscular Volume 93fL (79-100) Mean Corpuscular Hemoglobin 30pg (25-35) Mean Corpuscular Hemoglobin Concent 32g/dL (31-37) Red Cell Distribution Width 13.6% (11.5-14.5) Platelet Count 250x10^3/uL (140-400) Neutrophils (%) (Auto) 67% (31-73) Lymphocytes (%) (Auto) 23% (24-48) Monocytes (%) (Auto) 8% (0-9) Eosinophils (%) (Auto) 1% (0-3) Basophils (%) (Auto) 1% (0-3) Neutrophils # (Auto) 10.3x10^3uL (1.8-7.7) Lymphocytes # (Auto) 3.6x10^3/uL (1.0-4.8) Monocytes # (Auto) 1.3x10^3/uL (0.0-1.1) Eosinophils # (Auto) 0.2x10^3/uL (0.0-0.7) Basophils # (Auto) 0.1x10^3/uL (0.0-0.2) Sodium Level 133mmol/L (136-145) Potassium Level 4.6mmol/L (3.5-5.1) Chloride Level 97mmol/L (98-107) Carbon Dioxide Level 24mmol/L (21-32) Anion Gap 12 (6-14) Blood Urea Nitrogen 16mg/dL (7-20) Creatinine 1.0mg/dL (0.6-1.0) Estimated GFR (Cockcroft-Gault) 55.5 Glucose Level 422mg/dL (70-99) Calcium Level 9.4mg/dL (8.5-10.1) Glucose (Fingerstick) 414mg/dL (70-99) 295mg/dL (70-99) Laboratory Tests Test 06/08/16 15:22 06/08/16 17:18 06/08/16 21:05 06/08/16 23:39 Glucose (Fingerstick) 342mg/dL (70-99) 345mg/dL (70-99) 113mg/dL (70-99) 48mg/dL (70-99) Test 06/08/16 23:53 06/09/16 00:07 06/09/16 06:05 06/09/16 07:04 Glucose (Fingerstick) 57mg/dL (70-99) 94mg/dL (70-99) 414mg/dL (70-99) White Blood Count 15.4x10^3/uL (4.0-11.0) Red Blood Count 4.00x10^6/uL (3.50-5.40) Hemoglobin 12.0g/dL (12.0-15.5) Hematocrit 37.0% (36.0-47.0) Mean Corpuscular Volume 93fL (79-100) Mean Corpuscular Hemoglobin 30pg (25-35) Mean Corpuscular Hemoglobin Concent 32g/dL (31-37) Red Cell Distribution Width 13.6% (11.5-14.5) Platelet Count 250x10^3/uL (140-400) Neutrophils (%) (Auto) 67% (31-73) Lymphocytes (%) (Auto) 23% (24-48) Monocytes (%) (Auto) 8% (0-9) Eosinophils (%) (Auto) 1% (0-3) Basophils (%) (Auto) 1% (0-3) Neutrophils # (Auto) 10.3x10^3uL (1.8-7.7) Lymphocytes # (Auto) 3.6x10^3/uL (1.0-4.8) Monocytes # (Auto) 1.3x10^3/uL (0.0-1.1) Eosinophils # (Auto) 0.2x10^3/uL (0.0-0.7) Basophils # (Auto) 0.1x10^3/uL (0.0-0.2) Sodium Level 133mmol/L (136-145) Potassium Level 4.6mmol/L (3.5-5.1) Chloride Level 97mmol/L (98-107) Carbon Dioxide Level 24mmol/L (21-32) Anion Gap 12 (6-14) Blood Urea Nitrogen 16mg/dL (7-20) Creatinine 1.0mg/dL (0.6-1.0) Estimated GFR (Cockcroft-Gault) 55.5 Glucose Level 422mg/dL (70-99) Calcium Level 9.4mg/dL (8.5-10.1) Test 06/09/16 11:28 Glucose (Fingerstick) 295mg/dL (70-99) Medications Active Scripts Medications Dose Route/Sig Days Date Category Dose Instructions Levemir (Insulin Detemir) 100 Unit/1 Ml Vial 6 Unit SQ HS 06/05/16 Reported Levemir (Insulin Detemir) 100 Unit/1 Ml Vial 10 Unit SQ DAILY08 06/05/16 Reported Hydrocodone-Apap 5-325 (Hydrocodone Bit/Acetaminophen) 1 Each Tablet 1 Tab PO PRN Q6HRS PRN 05/12/16 Rx Indapamide 1.25 Mg Tablet 05/08/16 Reported Indapamide 1.25 Mg Tablet 05/08/16 Reported Indapamide 1.25 Mg Tablet 05/08/16 Reported Indapamide 1.25 Mg Tablet 05/08/16 Reported Clonazepam 1 Mg Tablet 05/08/16 Reported Copaxone (Glatiramer Acetate) 40 Mg/1 Ml Syringe 40 Mg SQ 3X/WEEK 04/20/16 Reported Indapamide 1.25 Mg Tablet 1 Tab PO DAILY 11/26/15 Reported Omeprazole 20 Mg Capsule.dr 1 Cap PO DAILY 09/18/15 Reported Levemir Flextouch (Insulin Detemir) 100 Unit/1 Ml Insuln.pen 14 Unit SQ HS 09/17/15 Reported Hydrocodone-Apap 5-325 (Hydrocodone Bit/Acetaminophen) 1 Each Tablet 1 Tab PO PRN Q6HRS PRN 09/17/15 Reported Meclizine Hcl 25 Mg Tablet 1 Tab PO PRN TID 09/17/15 Reported Clonazepam 0.5 Mg Tablet 0.5 Mg PO TID 09/17/15 Reported Baclofen 10 Mg Tablet 5 Mg PO TID 09/19/14 Reported Copaxone (Glatiramer Acetate) 20 Mg/1 Ml Syringekit 20 Mg SQ 09/19/14 Reported Amlodipine Besylate 5 Mg Tablet 5 Mg PO DAILY 12/01/13 Reported Oxybutynin Chloride 5 Mg Tablet 5 Mg PO BID 12/01/13 Reported Novolog Flexpen (Insulin Aspart) 100 Unit/1 Ml Insuln.pen 100 Unit SQ 12/01/13 Reported 8 units tid ac Atorvastatin Calcium 20 Mg Tablet 20 Mg PO DAILY 12/01/13 Reported Losartan Potassium 100 Mg Tablet 50 Mg PO DAILY 12/01/13 Reported Levothyroxine Sodium 125 Mcg Tablet 125 Mcg PO DAILYAC 12/01/[address] Chest : 06/05/16: Findings: No axillary lymphadenopathy is seen. There is an azygos lymph node measuring 8 mm. Evaluation for hilar lymphadenopathy is difficult without IV contrast. There is a mass or nodular infiltrate within the medial aspect of the right upper lobe. It extends along the medial aspect of the right upper lobe and the lateral border of the upper right mediastinum to the right hilum. Therefore, measurements are difficult without IV contrast to separate from hilar vessels. However, it measures at least 3.9 cm in vertical dimension and 2.6 cm in transverse dimension and 2.5 cm in AP dimension. There is a spiculated mass within the superior segment of the right lower lobe which measures 2.0 cm. There is a consolidative infiltrate with air bronchograms involving the anterior basal segment of the right lower lobe extending to the fissure. Small ill-defined subcentimeter lung nodules are seen within the lateral aspect of the right upper lobe seen best on images 16 through 19. The left lung field is clear. No pleural effusion or pneumothorax is seen. The proximal bronchial tree is patent. No focal aneurysmal dilatation of the thoracic aorta is seen. The heart size is at the upper limits of normal. No significant pericardial effusion is seen. Calcified atheromatous disease of the coronary arteries is evident. No adrenal mass is seen. No osteolytic process is seen. Impression . 1. Fever post Bronch, suspect could be due to aspiration of blood from epistaxis. 2. Consolidative pneumonia RLL/ RUL postero-medially 3. Right upper lobe density, suspect infectious rather than neoplasm, resolved on f/u CXR. 5. Electrolyte Abnormalities 5. Leukocytosis- continue Abx / ID consulted 6. Mild renal insufficiency, suspect due to dehydration. Plan . 1. Antibiotic per ID 2. Continue Oxygen therapy - wean/titrate as able 3. f/u Bronch cultures 4. Follow blood culture results 5. Bronchodilators p.r.n. 6. f/u ct chest in 4-6 weeks BAY TURNER MD Jun 09, 2016 12:39
[2016-06-09] MEDS: PIPERACILLIN/TAZOBACTAM 3.375 GM in IV NORMAL SALINE 50ML 50 ML IV SCH ×2 (14:09→17:41)
[2016-06-09] MEDS: ENOXAPARIN 40 MG/0.4 ML DISP.SYRIN. SQ SCH (14:10)
[2016-06-09] MEDS: VANCOMYCIN PER PHARMACY MC PRN (14:18)
--- NOTE | 2016-06-09 14:51 | PATHOLOGY ---
CYTOPATHOLOGY REPORT CLINICAL HISTORY: Lung nodule. SPECIMEN(S) RECEIVED: A.Bronchoalveolar lavage, RUL B.Bronchoalveolar lavage, RLL FINAL DIAGNOSIS: A. Right upper lobe bronchoalveolar lavage, ThinPrep: - No malignant cells identified. - Few reactive bronchial epithelial cells and pulmonary macrophages identified within a background of scattered inflammatory cells and red blood cells. B. Right lower lobe bronchoalveolar lavage, ThinPrep: - No malignant cells identified. - Focally reactive bronchial epithelial cells and few pulmonary macrophages identified within a background of predominantly acute inflammatory cells and scattered red blood cells. (JPM:; d/t: 06/09/16) PATHOLOGIST: Lawrence Carter M.D. REPORT ELECTRONICALLY SIGNED BY: Lawrence Carter M.D. DATE/TIME: 06/09/2016 14:51 GROSS PATHOLOGY: A. Bronchoalveolar lavage, RUL: The specimen is submitted unfixed, labeled "Josi Bhandari". Received by the Cytology Department is three mL of cloudy red fluid. One ThinPrep slide was prepared. B. Bronchoalveolar lavage, RLL: The specimen is submitted unfixed, labeled "Josi Bhandari". Received by the Cytology Department is three mL of cloud fluid. One ThinPrep slide was prepared. (clt 06.08.2016) SENIOR ADULTS DIRECTOR(S): MONTRELL So([facility]) INITIAL CPT CODE(S): A; 19001 B; 61747 Professional services performed [place] [facility] [place] [address] Technical services performed by [facility] at [address] [place] [address], [address] [address]. CC: Dr. BENITA MANCERA PATIENT: JOSI BHANDARI /AGE: 9 1950 (Age: 66) SEX: F PATIENT #: [id number] ALT CASE #: SPECIMEN COLLECTION DATE: 06/08/2016 SPECIMEN RECEIVED DATE: 06/08/[address] [facility] [address] [place] [address], [address] [place] [address] PHONE: [phone] DIRECTOR: Getachew Escobar M.D. * * * END OF REPORT * * *
[2016-06-09 15:29] VITALS: BP 99/51
[2016-06-09] MEDS: GUAIFENESIN/CODEINE 100mg/10mg 5 ML LIQUID. PO PRN ×2 (17:41→22:48)
[2016-06-09 19:00] VITALS: BP 116/54
[2016-06-09] MEDS: DOXYCYCLINE HYCLATE 100 MG TABLET PO SCH (21:58)
[2016-06-09] MEDS: ATORVASTATIN CALCIUM 20 MG TABLET PO SCH (21:58)
[2016-06-09] MEDS: VANCOMYCIN 1.75 GM in IV NORMAL SALINE 500ML BAG 500 ML IV SCH (22:08)
[2016-06-09 23:14] VITALS: BP 121/55
--- NOTE | 2016-06-09 23:28 | CONS ---
DATE OF CONSULTATION: 06/09/2016 ROOM: 574. REQUESTING PHYSICIAN: Dr. Lezama. REASON FOR CONSULTATION: Fever. HISTORY OF PRESENT ILLNESS: The patient is a pleasant 66-year-old female with history of multiple sclerosis, Graves disease, diabetes, was admitted to [facility] with complaints of fever up to 101 degrees, mild cough and shortness of air. She underwent chest x-ray that showed some nodular densities and subsequently underwent a CT scan. She was placed on Rocephin. She underwent bronchoscopy on the by Dr. Lezama and suddenly nosebleed during the procedure. Cultures were obtained and he added azithromycin to her regimen. She again had a fever overnight of up to 101 and hence we have been consulted. Currently, the patient is sitting in bed. She is a little bit constipated, not having a bowel movement for 3 days. She also has little sinus congestion and cough also was coughing up some clots at times. No complications with passing her urine, but she is feeling a little down today. PAST MEDICAL HISTORY: Positive for previous urinary tract infections with E. coli resistant to ampicillin, tetracycline has a history of diabetes, anxiety, gastroesophageal reflux disease, dyslipidemia, hypertension, hypothyroidism, Graves disease and multiple sclerosis as well as obesity. PAST SURGICAL HISTORY: Positive for shoulder surgery. Status post cataract surgery. REVIEW OF SYSTEMS: As mentioned above. ALLERGIES: No known drug allergies. SOCIAL HISTORY: [place] She did grow up riding horses in a competition. She worked formerly as an x-ray tech. She has traveled to [facility], to [place] and around to many horse shows. She has also been [place] twice. She is not a smoker. She has fish at home, but no other pets. No bird exposure. She does do occasional gardening. She is a nonsmoker. FAMILY HISTORY: Positive for hypertension. CURRENT MEDICATIONS: Include Rocephin, azithromycin, Norvasc, Lipitor, Klonopin, baclofen, Colace, insulin, meclizine, Protonix. Other meds are available and have been reviewed in chart. PHYSICAL EXAMINATION: VITAL SIGNS: T-max 101, currently 96, pulse 91, respirations 16, satting 95% on room air, blood pressure is 124/63. CONSTITUTIONAL: She is pleasant and cooperative. She is no acute distress. HEENT: Pupils are status post cataract surgery. Normal conjunctivae. Oral cavity, pharynx is clear. NECK: Supple, no JVD. LUNGS: Had some mild squeaking on the right side. HEART: S1, S2. ABDOMEN: Obese, soft with positive bowel sounds. EXTREMITIES: No clubbing, cyanosis with trace edema. SKIN: Warm to touch without signs of rash. NEUROLOGIC: She moves all extremities and answer questions appropriately. PSYCHIATRIC: Affect was somewhat flat. LABORATORY DATA: White count 15.4, hemoglobin 12, platelets of 250, neutrophils 67, lymphs are 23, creatinine 1, glucose of 422. Blood cultures are currently pending. Urine had Aerococcus and urine had few squamous cells, questionable sensitive for UTI. Influenza screen was negative. Radiology reviewed in history of present illness. IMPRESSION: 1. Fever. 2. Lung nodule infiltrates. 3. Leukocytosis. 4. Aerococcus in the urine. She is not reporting any gross weight loss or night sweats. She has gained weight since admission, she is up to 243. Admission weight was 227. She is having some hemoptysis, but this could be secondary to the bleeding from the bronchoscopy. Given her travel to [place] and [facility], also traveling with multiple horses and some farm exposure, she is at risk for atypical infections such as Mycobacterium. Because of this, we will discontinue the azithromycin to avoid single drug therapy in case she does have atypical infection. We will add back the vancomycin, Zosyn and follow up on labs and cultures, I will obtain a TB spot although again she has not had significant weight loss, no hemoptysis and she did work as an x-ray tech, though she denies knowing that she has had any PPDs placed. Thank you for allowing me to participate in the patient's care. If you have any questions, please do not hesitate to contact me. YVETTE BRUCE MD DR: TONI/amee JOB#: [id number] / [id number]
[2016-06-10 03:00] VITALS: BP 123/64
[2016-06-10] MEDS: PIPERACILLIN/TAZOBACTAM 3.375 GM in IV NORMAL SALINE 50ML 50 ML IV SCH ×4 (03:11→17:37)
[2016-06-10 05:39] LABS: BASO # 0.1 x10^3/uL (0.0-0.2); BASO % 1 % (0-3); EOS % 4 % (0-3); HEMATOCRIT 32.1 % (36.0-47.0); HEMOGLOBIN 10.6 g/dL (12.0-15.5); LYMPH # 3.4 x10^3/uL (1.0-4.8); LYMPH % 31 % (24-48); MEAN CORPUSCULAR HEMOGLOBIN 30 pg (25-35); MEAN CORPUSCULAR HGB CONC 33 g/dL (31-37); MEAN CORPUSCULAR VOLUME 92 fL (79-100); MONO % 11 % (0-9); NEUT % 53 % (31-73); PLATELET COUNT 216 x10^3/uL (140-400); RED BLOOD COUNT 3.49 x10^6/uL (3.50-5.40); RED CELL DISTRIBUTION WIDTH 13.8 % (11.5-14.5); WHITE BLOOD COUNT 10.9 x10^3/uL (4.0-11.0)
[2016-06-10 05:51] LABS: CALCIUM 8.2 mg/dL (8.5-10.1); CREATININE 0.9 mg/dL (0.6-1.0); GFR 62.6; POTASSIUM 4.3 mmol/L (3.5-5.1)
[2016-06-10] MEDS: LEVOTHYROXINE 125 MCG TABLET PO SCH (05:57)
[2016-06-10] MEDS: GUAIFENESIN/CODEINE 100mg/10mg 5 ML LIQUID. PO PRN ×3 (06:12→21:32)
[2016-06-10 07:00] VITALS: BP 133/55
[2016-06-10] MEDS: IPRATRPIUM/ALBUTEROL 0.5/2.5MG 3 ML NEBU. NEB SCH ×4 (07:24→20:26)
[2016-06-10] MEDS: GUAIFENESIN ER 600 MG TABLET.ER PO SCH ×2 (08:35→20:06)
[2016-06-10] MEDS: PANTOPRAZOLE 40 MG TABLET. PO SCH (08:35)
[2016-06-10] MEDS: INDAPAMIDE 2.5 MG TABLET PO SCH (08:36)
[2016-06-10] MEDS: CLONAZEPAM 0.5 MG TABLET PO SCH ×3 (08:36→20:05)
[2016-06-10] MEDS: DOXYCYCLINE HYCLATE 100 MG TABLET PO SCH ×2 (08:36→20:05)
[2016-06-10] MEDS: DOCUSATE SODIUM 100 MG CAPSULE PO SCH (08:36)
[2016-06-10] MEDS: OXYBUTYNIN CHLORIDE 5 MG TABLET PO SCH ×3 (08:36→20:06)
[2016-06-10] MEDS: AMLODIPINE BESYLATE 5 MG TABLET PO SCH (08:37)
[2016-06-10] MEDS: INSULIN DETEMIR 300 UNITS/3 ML INSULN.PEN. SQ SCH ×2 (08:44→21:30)
[2016-06-10] MEDS: INSULIN ASPART 300 UNITS/3 ML INSULN.PEN SQ SCH ×7 (08:44→21:29)
--- NOTE | 2016-06-10 10:19 | PDOC ---
PROGRESS NOTES Chief Complaint Chief Complaint cough, fever Fevers, Right upper lung infiltrate CAP, right lower lob 2c nodule HTN Hyperglycemia Urinary incontinence Plan 1. s/p Bronchoscopy ,Staph 2 abx per ID 3. add DuoNeb, albuterol, 4. SSI with Levemir 5. labs reviewed, 6. add oxybutynin 7. PT/OT History of Present Illness History of Present Illness cough fever no chills doing better Vitals Vitals Vital Signs Date Time Temp Pulse Resp B/P Pulse Ox O2 Delivery O2 Flow Rate FiO2 06/10/16 08:37 100 133/55 06/10/16 07:25 99 Nasal Cannula 2.0 06/10/16 07:00 98.1 18 98.1 Physical Exam General: Alert, Oriented X3, Cooperative Heart: Regular rate, Normal S1, Normal S2 Lungs: Clear Abdomen: Normal bowel sounds, Soft Extremities: No clubbing, No cyanosis Skin: No rashes Labs LABS Laboratory Tests Test 06/09/16 11:28 06/09/16 21:22 06/10/16 04:55 06/10/16 07:22 Glucose (Fingerstick) 295mg/dL (70-99) 197mg/dL (70-99) 285mg/dL (70-99) White Blood Count 10.9x10^3/uL (4.0-11.0) Red Blood Count 3.49x10^6/uL (3.50-5.40) Hemoglobin 10.6g/dL (12.0-15.5) Hematocrit 32.1% (36.0-47.0) Mean Corpuscular Volume 92fL (79-100) Mean Corpuscular Hemoglobin 30pg (25-35) Mean Corpuscular Hemoglobin Concent 33g/dL (31-37) Red Cell Distribution Width 13.8% (11.5-14.5) Platelet Count 216x10^3/uL (140-400) Neutrophils (%) (Auto) 53% (31-73) Lymphocytes (%) (Auto) 31% (24-48) Monocytes (%) (Auto) 11% (0-9) Eosinophils (%) (Auto) 4% (0-3) Basophils (%) (Auto) 1% (0-3) Neutrophils # (Auto) 5.8x10^3uL (1.8-7.7) Lymphocytes # (Auto) 3.4x10^3/uL (1.0-4.8) Monocytes # (Auto) 1.2x10^3/uL (0.0-1.1) Eosinophils # (Auto) 0.4x10^3/uL (0.0-0.7) Basophils # (Auto) 0.1x10^3/uL (0.0-0.2) Sodium Level 137mmol/L (136-145) Potassium Level 4.3mmol/L (3.5-5.1) Chloride Level 102mmol/L (98-107) Carbon Dioxide Level 27mmol/L (21-32) Anion Gap 8 (6-14) Blood Urea Nitrogen 13mg/dL (7-20) Creatinine 0.9mg/dL (0.6-1.0) Estimated GFR (Cockcroft-Gault) 62.6 Glucose Level 281mg/dL (70-99) Calcium Level 8.2mg/dL (8.5-10.1) Assessment and Plan Assessmemt and Plan Problems Medical Problems: (1) Cough Status: Acute (2) Hypokalemia Status: Acute Problems: Comment Review of Relevant I have reviewed the following items estrella (where applicable) has been applied. Labs Laboratory Tests Test 06/08/16 10:53 06/08/16 15:22 06/08/16 17:18 06/08/16 21:05 Glucose (Fingerstick) 263mg/dL (70-99) 342mg/dL (70-99) 345mg/dL (70-99) 113mg/dL (70-99) Test 06/08/16 23:39 06/08/16 23:53 06/09/16 00:07 06/09/16 06:05 Glucose (Fingerstick) 48mg/dL (70-99) 57mg/dL (70-99) 94mg/dL (70-99) White Blood Count 15.4x10^3/uL (4.0-11.0) Red Blood Count 4.00x10^6/uL (3.50-5.40) Hemoglobin 12.0g/dL (12.0-15.5) Hematocrit 37.0% (36.0-47.0) Mean Corpuscular Volume 93fL (79-100) Mean Corpuscular Hemoglobin 30pg (25-35) Mean Corpuscular Hemoglobin Concent 32g/dL (31-37) Red Cell Distribution Width 13.6% (11.5-14.5) Platelet Count 250x10^3/uL (140-400) Neutrophils (%) (Auto) 67% (31-73) Lymphocytes (%) (Auto) 23% (24-48) Monocytes (%) (Auto) 8% (0-9) Eosinophils (%) (Auto) 1% (0-3) Basophils (%) (Auto) 1% (0-3) Neutrophils # (Auto) 10.3x10^3uL (1.8-7.7) Lymphocytes # (Auto) 3.6x10^3/uL (1.0-4.8) Monocytes # (Auto) 1.3x10^3/uL (0.0-1.1) Eosinophils # (Auto) 0.2x10^3/uL (0.0-0.7) Basophils # (Auto) 0.1x10^3/uL (0.0-0.2) Sodium Level 133mmol/L (136-145) Potassium Level 4.6mmol/L (3.5-5.1) Chloride Level 97mmol/L (98-107) Carbon Dioxide Level 24mmol/L (21-32) Anion Gap 12 (6-14) Blood Urea Nitrogen 16mg/dL (7-20) Creatinine 1.0mg/dL (0.6-1.0) Estimated GFR (Cockcroft-Gault) 55.5 Glucose Level 422mg/dL (70-99) Calcium Level 9.4mg/dL (8.5-10.1) Test 06/09/16 07:04 06/09/16 11:28 06/09/16 21:22 06/10/16 04:55 Glucose (Fingerstick) 414mg/dL (70-99) 295mg/dL (70-99) 197mg/dL (70-99) White Blood Count 10.9x10^3/uL (4.0-11.0) Red Blood Count 3.49x10^6/uL (3.50-5.40) Hemoglobin 10.6g/dL (12.0-15.5) Hematocrit 32.1% (36.0-47.0) Mean Corpuscular Volume 92fL (79-100) Mean Corpuscular Hemoglobin 30pg (25-35) Mean Corpuscular Hemoglobin Concent 33g/dL (31-37) Red Cell Distribution Width 13.8% (11.5-14.5) Platelet Count 216x10^3/uL (140-400) Neutrophils (%) (Auto) 53% (31-73) Lymphocytes (%) (Auto) 31% (24-48) Monocytes (%) (Auto) 11% (0-9) Eosinophils (%) (Auto) 4% (0-3) Basophils (%) (Auto) 1% (0-3) Neutrophils # (Auto) 5.8x10^3uL (1.8-7.7) Lymphocytes # (Auto) 3.4x10^3/uL (1.0-4.8) Monocytes # (Auto) 1.2x10^3/uL (0.0-1.1) Eosinophils # (Auto) 0.4x10^3/uL (0.0-0.7) Basophils # (Auto) 0.1x10^3/uL (0.0-0.2) Sodium Level 137mmol/L (136-145) Potassium Level 4.3mmol/L (3.5-5.1) Chloride Level 102mmol/L (98-107) Carbon Dioxide Level 27mmol/L (21-32) Anion Gap 8 (6-14) Blood Urea Nitrogen 13mg/dL (7-20) Creatinine 0.9mg/dL (0.6-1.0) Estimated GFR (Cockcroft-Gault) 62.6 Glucose Level 281mg/dL (70-99) Calcium Level 8.2mg/dL (8.5-10.1) Test 06/10/16 07:22 Glucose (Fingerstick) 285mg/dL (70-99) Laboratory Tests Test 06/09/16 11:28 06/09/16 21:22 06/10/16 04:55 06/10/16 07:22 Glucose (Fingerstick) 295mg/dL (70-99) 197mg/dL (70-99) 285mg/dL (70-99) White Blood Count 10.9x10^3/uL (4.0-11.0) Red Blood Count 3.49x10^6/uL (3.50-5.40) Hemoglobin 10.6g/dL (12.0-15.5) Hematocrit 32.1% (36.0-47.0) Mean Corpuscular Volume 92fL (79-100) Mean Corpuscular Hemoglobin 30pg (25-35) Mean Corpuscular Hemoglobin Concent 33g/dL (31-37) Red Cell Distribution Width 13.8% (11.5-14.5) Platelet Count 216x10^3/uL (140-400) Neutrophils (%) (Auto) 53% (31-73) Lymphocytes (%) (Auto) 31% (24-48) Monocytes (%) (Auto) 11% (0-9) Eosinophils (%) (Auto) 4% (0-3) Basophils (%) (Auto) 1% (0-3) Neutrophils # (Auto) 5.8x10^3uL (1.8-7.7) Lymphocytes # (Auto) 3.4x10^3/uL (1.0-4.8) Monocytes # (Auto) 1.2x10^3/uL (0.0-1.1) Eosinophils # (Auto) 0.4x10^3/uL (0.0-0.7) Basophils # (Auto) 0.1x10^3/uL (0.0-0.2) Sodium Level 137mmol/L (136-145) Potassium Level 4.3mmol/L (3.5-5.1) Chloride Level 102mmol/L (98-107) Carbon Dioxide Level 27mmol/L (21-32) Anion Gap 8 (6-14) Blood Urea Nitrogen 13mg/dL (7-20) Creatinine 0.9mg/dL (0.6-1.0) Estimated GFR (Cockcroft-Gault) 62.6 Glucose Level 281mg/dL (70-99) Calcium Level 8.2mg/dL (8.5-10.1) Microbiology 06/05/16 Blood Culture - Preliminary, Resulted NO GROWTH AFTER 4 DAYS 06/08/16 Sputum Culture - Preliminary, Resulted 06/08/16 Sputum Result 1 - Preliminary, Resulted 06/05/16 Urine Culture - Final, Complete 06/05/16 Urine Culture Result 1 (GAERTH) - Final, Complete Medications Current Medications Potassium Chloride (KCl Premix 10meq) 100 ml @ 100 mls/hr Q1H IV Last administered on 06/05/16 17:00; Start 06/05/16 at 10:00; Stop 06/05/16 at 13:59 ; Status DC Ibuprofen (Motrin) 800 mg 1X ONCE PO Last administered on 06/05/16 12:59; Start 06/05/16 at 13:00; Stop 06/05/16 at 13:01; Status DC Ibuprofen 800 mg 800 mg STK-MED ONCE PO ; Start 06/05/16 at 12:57; Stop at 12:58; Status DC Ceftriaxone Sodium/Sodium Chloride (Rocephin/Iv Sodium Chloride 0.9% 50ml) 50 ml @ 100 mls/hr Q24H IV Last administered on 06/08/16 16:05; Start 06/05/16 at 15:30; Stop 06/09/16 at 10:49; Status DC Amlodipine Besylate (Norvasc) 5 mg DAILY PO Last administered on 06/10/16 08: 37; Start 06/06/16 at 09:00 Atorvastatin Calcium (Lipitor) 20 mg QHS PO Last administered on 06/09/16 21: 58; Start 06/05/16 at 21:00 Baclofen (Lioresal) 5 mg TID PO Last administered on 06/09/16 14:10; Start at 21:00; Stop 06/09/16 at 16:49; Status DC Clonazepam (Klonopin) 0.5 mg TID PO Last administered on 06/10/16 08:36; Start 06/05/16 at 21:00 Insulin Aspart (Novolog) 8 units TIDBFRMEAL SQ Last administered on 06/10/16 08:44; Start 06/06/16 at 07:30 Levothyroxine Sodium (Synthroid) 125 mcg DAILY07 PO Last administered on 05:57; Start 06/06/16 at 07:00 Oxybutynin Chloride (Ditropan) 5 mg BID PO Last administered on 06/09/16 08:13 ; Start 06/05/16 at 21:00; Stop 06/09/16 at 16:50; Status DC Insulin Detemir (Levemir) 6 units QHS SQ Last administered on 06/05/16 22:16; Start 06/05/16 at 21:00; Stop 06/06/16 at 14:32; Status DC Insulin Detemir (Levemir) 10 units DAILY08 SQ Last administered on 06/10/16 08 :44; Start 06/06/16 at 08:00 Losartan Potassium (Cozaar) 50 mg DAILY PO Last administered on 06/09/16 08:13 ; Start 06/06/16 at 09:00 Meclizine HCl (Antivert) 25 mg PRN TID PRN PO DIZZINESS; Start 06/05/16 at 16: 45 Pantoprazole Sodium (Protonix) 40 mg DAILYAC PO Last administered on 06/10/16 08:35; Start 06/06/16 at 07:30 Indapamide (Lozol) 1.25 mg DAILY PO Last administered on 06/10/16 08:36; Start 06/06/16 at 09:00 Non-Formulary Medication 40 mg 3X/WEEK SQ ; Start 06/08/16 at 09:00; Status UNV Acetaminophen (Tylenol) 650 mg PRN Q6HRS PRN FL MILD PAIN / TEMP; Start at 16:45; Stop 06/05/16 at 17:12; Status DC Insulin Aspart (Novolog) 20 units 1X ONCE SQ Last administered on 06/05/16 17 :51; Start 06/05/16 at 16:45; Stop 06/05/16 at 16:51; Status DC Insulin Aspart (Novolog) 0-5 UNITS TIDWMEALS SQ Last administered on 06/06/16 12:20; Start 06/05/16 at 17:00; Stop 06/06/16 at 14:32; Status DC Dextrose 12.5 gm PRN Q15MIN PRN IV SEE COMMENTS; Start 06/05/16 at 16:45 Non-Formulary Medication 1 ea QMWF SQ Last administered on 06/08/16 16:06; Start 06/05/16 at 16:00 Acetaminophen (Tylenol) 650 mg PRN Q6HRS PRN PO MILD PAIN / TEMP Last administered on 06/06/16 13:14; Start 06/05/16 at 17:15 Docusate Sodium (Colace) 100 mg PRN DAILY PRN PO CONSTIPATION; Start 06/05/16 at 20:37 Docusate Sodium 100 mg 100 mg DAILY PO Last administered on 06/10/16 08:36; Start 06/06/16 at 09:00 Potassium Chloride (KCl Premix 10meq) 100 ml @ 100 mls/hr Q1H IV Last administered on 06/06/16 20:51; Start 06/06/16 at 07:00; Stop 06/06/16 at 10:59 ; Status DC Guaifenesin/ Codeine Phosphate (Robitussin Ac) 5 ml PRN Q6HRS PRN PO COUGH Last administered on 06/10/16 06:12; Start 06/06/16 at 13:00 Guaifenesin (Mucinex) 600 mg BID PO Last administered on 06/10/16 08:35; Start 06/06/16 at 13:00 Insulin Detemir (Levemir) 10 units QHS SQ Last administered on 06/06/16 21:01 ; Start 06/06/16 at 21:00; Stop 06/07/16 at 10:04; Status DC Insulin Aspart (Novolog) 0-9 UNITS QIDACHS SQ Last administered on 06/10/16 08 :45; Start 06/06/16 at 16:30 Dextrose 12.5 gm PRN Q15MIN PRN IV SEE COMMENTS; Start 06/06/16 at 14:30; Stop 06/08/16 at 15:55; Status DC Albuterol/ Ipratropium (Duoneb) 3 ml RTQID NEB Last administered on 06/10/16 07:24; Start 06/06/16 at 16:00 Albuterol Sulfate (Ventolin Neb Soln) 2.5 mg PRN Q4HRS PRN NEB SHORTNESS OF BREATH Last administered on 06/08/16 13:00; Start 06/06/16 at 14:30 Enoxaparin Sodium (Lovenox 40mg Syringe) 40 mg Q24H SQ Last administered on 14:10; Start 06/06/16 at 15:00 Insulin Detemir (Levemir) 15 units QHS SQ ; Start 06/07/16 at 21:00; Stop at 21:00; Status DC Potassium Chloride (Klor-Con) 40 meq 1X ONCE PO Last administered on 12:06; Start 06/07/16 at 10:15; Stop 06/07/16 at 10:16; Status DC Insulin Detemir (Levemir) 10 units QHS SQ Last administered on 06/09/16 22:06 ; Start 06/07/16 at 21:00 Ondansetron HCl (Zofran) 4 mg PRN Q6HRS PRN IV Nausea; Start 06/08/16 at 13:00 ; Stop 06/09/16 at 12:59; Status DC Fentanyl Citrate (Fentanyl 2ml Vial) 25 mcg PRN Q5MIN PRN IV MILD PAIN; Start 06/08/16 at 13:00; Stop 06/09/16 at 12:59; Status DC Fentanyl Citrate (Fentanyl 2ml Vial) 50 mcg PRN Q5MIN PRN IV MODERATE PAIN; Start 06/08/16 at 13:00; Stop 06/09/16 at 12:59; Status DC Morphine Sulfate 1 mg 1 mg PRN Q10MIN PRN IV SEVERE PAIN; Start 06/08/16 at 13: 00; Stop 06/09/16 at 12:59; Status DC Lactated Ringer's (Iv Lactated Ringers) 1,000 ml @ 0 mls/hr Q0M IV Last administered on 06/08/16 12:58; Start 06/08/16 at 12:54; Stop 06/09/16 at 00:53 ; Status DC Lidocaine HCl 2 ml 1X PRN PRN ID IV START; Start 06/08/16 at 13:00; Stop at 12:59; Status DC Hydromorphone HCl (Dilaudid) 0.5 mg PRN Q10MIN PRN IV SEV PAIN,Second choice; Start 06/08/16 at 13:00; Stop 06/09/16 at 12:59; Status DC Prochlorperazine Edisylate 5 mg 5 mg PACU PRN PRN IV NAUSEA; Start 06/08/16 at 13:00; Stop 06/09/16 at 12:59; Status DC Propofol (Diprivan) 20 ml @ As Directed STK-MED ONCE IV ; Start 06/08/16 at 13: 32; Stop 06/08/16 at 13:33; Status DC Epinephrine HCl 1 mg STK-MED ONCE .ROUTE ; Start 06/08/16 at 13:50; Stop at 13:51; Status DC Phenylephrine HCl (Carlos Eduardo-Synephrine 0.5% Nasal) 2 spray PRN Q4HRS PRN NS CONGESTION Last administered on 06/08/16 14:03; Start 06/08/16 at 14:00 Insulin Aspart 20 units 20 units 1X ONCE SQ Last administered on 06/08/16 18: 35; Start 06/08/16 at 18:45; Stop 06/08/16 at 18:46; Status DC Azithromycin/ Sodium Chloride (Zithromax/Iv Sodium Chloride 0.9% 250ml) 250 ml @ 250 mls/hr 1X ONCE IV Last administered on 06/08/16 20:47; Start 06/08/16 at 20:30; Stop 06/08/16 at 21:29; Status DC Azithromycin (Zithromax) 250 mg DAILY PO Last administered on 06/09/16 08:15; Start 06/09/16 at 09:00; Stop 06/09/16 at 10:49; Status DC Acetaminophen/ Hydrocodone Bitart (Lortab 5/325) 1 tab PRN Q4HRS PRN PO PAIN Last administered on 06/08/16 21:16; Start 06/08/16 at 21:15 Vancomycin HCl 1 each 1 each PRN DAILY PRN MC SEE COMMENTS Last administered on 06/09/16 14:18; Start 06/09/16 at 10:30 Piperacillin Sod/ Tazobactam Sod/ Sodium Chloride (Zosyn/Iv Sodium Chloride 0.9 % 50ml) 50 ml @ 100 mls/hr Q6HRS IV Last administered on 06/10/16 05:56; Start 06/09/16 at 12:00 Doxycycline Hyclate 100 mg 100 mg BID PO Last administered on 06/10/16 08:36; Start 06/09/16 at 21:00 Vancomycin HCl 2 gm/Sodium Chloride 500 ml @ 250 mls/hr 1X ONCE IV Last administered on 06/09/16 11:24; Start 06/09/16 at 11:00; Stop 06/09/16 at 12:59 ; Status DC Vancomycin HCl/ Sodium Chloride (Iv Sodium Chloride 0.9% 500ml Bag) 500 ml @ 250 mls/hr Q12H IV Last administered on 06/09/16 22:08; Start 06/09/16 at 23: 30 Vancomycin HCl 1 each 1X ONCE MC ; Start 06/10/16 at 23:00; Stop 06/10/16 at 23 :01 Oxybutynin Chloride (Ditropan) 5 mg [id number] PO Last administered on 06/10/16 08 :36; Start 06/09/16 at 21:00 Active Scripts Active Hydrocodone-Apap 5-325 (Hydrocodone Bit/Acetaminophen) 1 Each Tablet 1 Tab PO PRN Q6HRS PRN Reported Levemir (Insulin Detemir) 100 Unit/1 Ml Vial 6 Unit SQ HS Levemir (Insulin Detemir) 100 Unit/1 Ml Vial 10 Unit SQ DAILY08 Indapamide 1.25 Mg Tablet Indapamide 1.25 Mg Tablet Indapamide 1.25 Mg Tablet Indapamide 1.25 Mg Tablet Clonazepam 1 Mg Tablet Copaxone (Glatiramer Acetate) 40 Mg/1 Ml Syringe 40 Mg SQ 3X/WEEK Indapamide 1.25 Mg Tablet 1 Tab PO DAILY Omeprazole 20 Mg Capsule.dr 1 Cap PO DAILY Levemir Flextouch (Insulin Detemir) 100 Unit/1 Ml Insuln.pen 14 Unit SQ HS Hydrocodone-Apap 5-325 (Hydrocodone Bit/Acetaminophen) 1 Each Tablet 1 Tab PO PRN Q6HRS PRN Meclizine Hcl 25 Mg Tablet 1 Tab PO PRN TID Clonazepam 0.5 Mg Tablet 0.5 Mg PO TID Baclofen 10 Mg Tablet 5 Mg PO TID Copaxone (Glatiramer Acetate) 20 Mg/1 Ml Syringekit 20 Mg SQ Amlodipine Besylate 5 Mg Tablet 5 Mg PO DAILY Oxybutynin Chloride 5 Mg Tablet 5 Mg PO BID Novolog Flexpen (Insulin Aspart) 100 Unit/1 Ml Insuln.pen 100 Unit SQ 8 units tid ac Atorvastatin Calcium 20 Mg Tablet 20 Mg PO DAILY Losartan Potassium 100 Mg Tablet 50 Mg PO DAILY Levothyroxine Sodium 125 Mcg Tablet 125 Mcg PO DAILYAC Vitals/I & O Vital Sign - Last 24 Hours 06/09/16 06/09/16 06/09/16 06/09/16 10:56 11:00 15:29 15:59 Temp 98.2 97.8 98.2 97.8 Pulse 99 99 Resp B/P 122/61 99/51 Pulse Ox 92 96 97 O2 Delivery Nasal Cannula Room Air Nasal Cannula Nasal Cannula O2 Flow Rate 22.0 2.0 2.0 06/09/16 06/09/16 06/09/16 06/09/16 19:00 19:48 20:00 23:14 Temp 98.4 97.5 98.4 97.5 Pulse 94 88 Resp B/P 116/54 121/55 Pulse Ox 97 98 96 O2 Delivery Room Air Nasal Cannula Nasal Cannula Nasal Cannula O2 Flow Rate 2.0 2.0 2.0 06/10/16 06/10/16 06/10/16 06/10/16 03:00 07:00 07:25 08:37 Temp 98.0 98.1 98.0 98.1 Pulse 86 103 100 Resp B/P 123/64 133/55 133/55 Pulse Ox 95 92 99 O2 Delivery Nasal Cannula Room Air Nasal Cannula O2 Flow Rate 2.0 2.0 Intake and Output 06/09/16 06/09/16 06/10/16 15:00 23:00 07:00 Intake Total 360 ml 300 ml Balance 360 ml 300 ml GINO MARTINEZ MD Jun 10, 2016 10:19
--- NOTE | 2016-06-10 10:22 | PDOC ---
Infectious Disease Note Subjective Subjective Better. Less cough. Still no BM ROS ROS GEN: Denies fevers, chills, sweats HEENT: Denies blurred vision, sore throat CV: Denies chest pain RESP: Denies shortness of air, cough GI: Denies n/v/d NEURO: Denies confusion, dizziness MSK: Denies weakness, joint pain/swelling Vital Sign Vital Signs Vital Signs Date Time Temp Pulse Resp B/P Pulse Ox O2 Delivery O2 Flow Rate FiO2 06/10/16 08:37 100 133/55 06/10/16 07:25 99 Nasal Cannula 2.0 06/10/16 07:00 98.1 18 98.1 Physical Exam PHYSICAL EXAM GENERAL: NAD, Alert HEENT: PERRL, OC/OP - clear NECK: Supple, no JVD, no LN LUNGS: Clear. on 02 HEART: S1S2, no gallop, no murmur ABD: Soft, NT, no organomegaly, no rebound. Mild distension EXT: No edema, no cyanosis [employer]: Alert, oriented x 3, no focal neurologic deficit SKIN: No rash IV: ok Labs Lab Laboratory Tests Test 06/09/16 11:28 06/09/16 21:22 06/10/16 04:55 06/10/16 07:22 Glucose (Fingerstick) 295mg/dL (70-99) 197mg/dL (70-99) 285mg/dL (70-99) White Blood Count 10.9x10^3/uL (4.0-11.0) Red Blood Count 3.49x10^6/uL (3.50-5.40) Hemoglobin 10.6g/dL (12.0-15.5) Hematocrit 32.1% (36.0-47.0) Mean Corpuscular Volume 92fL (79-100) Mean Corpuscular Hemoglobin 30pg (25-35) Mean Corpuscular Hemoglobin Concent 33g/dL (31-37) Red Cell Distribution Width 13.8% (11.5-14.5) Platelet Count 216x10^3/uL (140-400) Neutrophils (%) (Auto) 53% (31-73) Lymphocytes (%) (Auto) 31% (24-48) Monocytes (%) (Auto) 11% (0-9) Eosinophils (%) (Auto) 4% (0-3) Basophils (%) (Auto) 1% (0-3) Neutrophils # (Auto) 5.8x10^3uL (1.8-7.7) Lymphocytes # (Auto) 3.4x10^3/uL (1.0-4.8) Monocytes # (Auto) 1.2x10^3/uL (0.0-1.1) Eosinophils # (Auto) 0.4x10^3/uL (0.0-0.7) Basophils # (Auto) 0.1x10^3/uL (0.0-0.2) Sodium Level 137mmol/L (136-145) Potassium Level 4.3mmol/L (3.5-5.1) Chloride Level 102mmol/L (98-107) Carbon Dioxide Level 27mmol/L (21-32) Anion Gap 8 (6-14) Blood Urea Nitrogen 13mg/dL (7-20) Creatinine 0.9mg/dL (0.6-1.0) Estimated GFR (Cockcroft-Gault) 62.6 Glucose Level 281mg/dL (70-99) Calcium Level 8.2mg/dL (8.5-10.1) Objective Assessment Fever Lung nodular infiltrates - Staph aureus on cult. AFB stain neg times 2 Leukocytosis - better Aerococcus in urine Constipation Plan Plan of Care Add Miralax Cont Doxy/Vanc and Zosyn F/u labs and cults/TB spot YVETTE BRUCE MD Jun 10, 2016 10:22
[2016-06-10] MEDS: LOSARTAN POTASSIUM 50 MG TABLET. PO SCH (10:29)
[2016-06-10] MEDS: POLYETHYLENE GLYCOL 3350 17 GM PACKET. PO SCH (10:43)
[2016-06-10] MEDS: VANCOMYCIN 1.75 GM in IV NORMAL SALINE 500ML BAG 500 ML IV SCH ×2 (10:51→23:16)
[2016-06-10 10:55] VITALS: BP 138/55
--- NOTE | 2016-06-10 11:38 | PDOC ---
PULMONARY PROGRESS NOTES Subjective Feeling improved, no complaints. Vitals Vital Signs Date Time Temp Pulse Resp B/P Pulse Ox O2 Delivery O2 Flow Rate FiO2 06/10/16 11:35 Nasal Cannula 2.0 06/10/16 10:55 98.0 95 18 138/55 97 98.0 ROS: No Nausea, No Chest Pain, No Abdominal Pain General: Alert, Oriented X4, No acute distress Lungs: Clear Cardiovascular: S1, S2 Abdomen: Soft, Non-tender Neuro Exam: Alert, Oriented, Normal Speech Extremities: No Edema Skin: Warm, Dry Labs Laboratory Tests Test 06/08/16 15:22 06/08/16 17:18 06/08/16 21:05 06/08/16 23:39 Glucose (Fingerstick) 342mg/dL (70-99) 345mg/dL (70-99) 113mg/dL (70-99) 48mg/dL (70-99) Test 06/08/16 23:53 06/09/16 00:07 06/09/16 06:05 06/09/16 07:04 Glucose (Fingerstick) 57mg/dL (70-99) 94mg/dL (70-99) 414mg/dL (70-99) White Blood Count 15.4x10^3/uL (4.0-11.0) Red Blood Count 4.00x10^6/uL (3.50-5.40) Hemoglobin 12.0g/dL (12.0-15.5) Hematocrit 37.0% (36.0-47.0) Mean Corpuscular Volume 93fL (79-100) Mean Corpuscular Hemoglobin 30pg (25-35) Mean Corpuscular Hemoglobin Concent 32g/dL (31-37) Red Cell Distribution Width 13.6% (11.5-14.5) Platelet Count 250x10^3/uL (140-400) Neutrophils (%) (Auto) 67% (31-73) Lymphocytes (%) (Auto) 23% (24-48) Monocytes (%) (Auto) 8% (0-9) Eosinophils (%) (Auto) 1% (0-3) Basophils (%) (Auto) 1% (0-3) Neutrophils # (Auto) 10.3x10^3uL (1.8-7.7) Lymphocytes # (Auto) 3.6x10^3/uL (1.0-4.8) Monocytes # (Auto) 1.3x10^3/uL (0.0-1.1) Eosinophils # (Auto) 0.2x10^3/uL (0.0-0.7) Basophils # (Auto) 0.1x10^3/uL (0.0-0.2) Sodium Level 133mmol/L (136-145) Potassium Level 4.6mmol/L (3.5-5.1) Chloride Level 97mmol/L (98-107) Carbon Dioxide Level 24mmol/L (21-32) Anion Gap 12 (6-14) Blood Urea Nitrogen 16mg/dL (7-20) Creatinine 1.0mg/dL (0.6-1.0) Estimated GFR (Cockcroft-Gault) 55.5 Glucose Level 422mg/dL (70-99) Calcium Level 9.4mg/dL (8.5-10.1) Test 06/09/16 11:28 06/09/16 21:22 06/10/16 04:55 06/10/16 07:22 Glucose (Fingerstick) 295mg/dL (70-99) 197mg/dL (70-99) 285mg/dL (70-99) White Blood Count 10.9x10^3/uL (4.0-11.0) Red Blood Count 3.49x10^6/uL (3.50-5.40) Hemoglobin 10.6g/dL (12.0-15.5) Hematocrit 32.1% (36.0-47.0) Mean Corpuscular Volume 92fL (79-100) Mean Corpuscular Hemoglobin 30pg (25-35) Mean Corpuscular Hemoglobin Concent 33g/dL (31-37) Red Cell Distribution Width 13.8% (11.5-14.5) Platelet Count 216x10^3/uL (140-400) Neutrophils (%) (Auto) 53% (31-73) Lymphocytes (%) (Auto) 31% (24-48) Monocytes (%) (Auto) 11% (0-9) Eosinophils (%) (Auto) 4% (0-3) Basophils (%) (Auto) 1% (0-3) Neutrophils # (Auto) 5.8x10^3uL (1.8-7.7) Lymphocytes # (Auto) 3.4x10^3/uL (1.0-4.8) Monocytes # (Auto) 1.2x10^3/uL (0.0-1.1) Eosinophils # (Auto) 0.4x10^3/uL (0.0-0.7) Basophils # (Auto) 0.1x10^3/uL (0.0-0.2) Sodium Level 137mmol/L (136-145) Potassium Level 4.3mmol/L (3.5-5.1) Chloride Level 102mmol/L (98-107) Carbon Dioxide Level 27mmol/L (21-32) Anion Gap 8 (6-14) Blood Urea Nitrogen 13mg/dL (7-20) Creatinine 0.9mg/dL (0.6-1.0) Estimated GFR (Cockcroft-Gault) 62.6 Glucose Level 281mg/dL (70-99) Calcium Level 8.2mg/dL (8.5-10.1) Test 06/10/16 11:13 Glucose (Fingerstick) 186mg/dL (70-99) Laboratory Tests Test 06/09/16 21:22 06/10/16 04:55 06/10/16 07:22 06/10/16 11:13 Glucose (Fingerstick) 197mg/dL (70-99) 285mg/dL (70-99) 186mg/dL (70-99) White Blood Count 10.9x10^3/uL (4.0-11.0) Red Blood Count 3.49x10^6/uL (3.50-5.40) Hemoglobin 10.6g/dL (12.0-15.5) Hematocrit 32.1% (36.0-47.0) Mean Corpuscular Volume 92fL (79-100) Mean Corpuscular Hemoglobin 30pg (25-35) Mean Corpuscular Hemoglobin Concent 33g/dL (31-37) Red Cell Distribution Width 13.8% (11.5-14.5) Platelet Count 216x10^3/uL (140-400) Neutrophils (%) (Auto) 53% (31-73) Lymphocytes (%) (Auto) 31% (24-48) Monocytes (%) (Auto) 11% (0-9) Eosinophils (%) (Auto) 4% (0-3) Basophils (%) (Auto) 1% (0-3) Neutrophils # (Auto) 5.8x10^3uL (1.8-7.7) Lymphocytes # (Auto) 3.4x10^3/uL (1.0-4.8) Monocytes # (Auto) 1.2x10^3/uL (0.0-1.1) Eosinophils # (Auto) 0.4x10^3/uL (0.0-0.7) Basophils # (Auto) 0.1x10^3/uL (0.0-0.2) Sodium Level 137mmol/L (136-145) Potassium Level 4.3mmol/L (3.5-5.1) Chloride Level 102mmol/L (98-107) Carbon Dioxide Level 27mmol/L (21-32) Anion Gap 8 (6-14) Blood Urea Nitrogen 13mg/dL (7-20) Creatinine 0.9mg/dL (0.6-1.0) Estimated GFR (Cockcroft-Gault) 62.6 Glucose Level 281mg/dL (70-99) Calcium Level 8.2mg/dL (8.5-10.1) Medications Active Scripts Medications Dose Route/Sig Days Date Category Dose Instructions Levemir (Insulin Detemir) 100 Unit/1 Ml Vial 6 Unit SQ HS 06/05/16 Reported Levemir (Insulin Detemir) 100 Unit/1 Ml Vial 10 Unit SQ DAILY08 06/05/16 Reported Hydrocodone-Apap 5-325 (Hydrocodone Bit/Acetaminophen) 1 Each Tablet 1 Tab PO PRN Q6HRS PRN 05/12/16 Rx Indapamide 1.25 Mg Tablet 05/08/16 Reported Indapamide 1.25 Mg Tablet 05/08/16 Reported Indapamide 1.25 Mg Tablet 05/08/16 Reported Indapamide 1.25 Mg Tablet 05/08/16 Reported Clonazepam 1 Mg Tablet 05/08/16 Reported Copaxone (Glatiramer Acetate) 40 Mg/1 Ml Syringe 40 Mg SQ 3X/WEEK 04/20/16 Reported Indapamide 1.25 Mg Tablet 1 Tab PO DAILY 11/26/15 Reported Omeprazole 20 Mg Capsule.dr 1 Cap PO DAILY 09/18/15 Reported Levemir Flextouch (Insulin Detemir) 100 Unit/1 Ml Insuln.pen 14 Unit SQ HS 09/17/15 Reported Hydrocodone-Apap 5-325 (Hydrocodone Bit/Acetaminophen) 1 Each Tablet 1 Tab PO PRN Q6HRS PRN 09/17/15 Reported Meclizine Hcl 25 Mg Tablet 1 Tab PO PRN TID 09/17/15 Reported Clonazepam 0.5 Mg Tablet 0.5 Mg PO TID 09/17/15 Reported Baclofen 10 Mg Tablet 5 Mg PO TID 09/19/14 Reported Copaxone (Glatiramer Acetate) 20 Mg/1 Ml Syringekit 20 Mg SQ 09/19/14 Reported Amlodipine Besylate 5 Mg Tablet 5 Mg PO DAILY 12/01/13 Reported Oxybutynin Chloride 5 Mg Tablet 5 Mg PO BID 12/01/13 Reported Novolog Flexpen (Insulin Aspart) 100 Unit/1 Ml Insuln.pen 100 Unit SQ 12/01/13 Reported 8 units tid ac Atorvastatin Calcium 20 Mg Tablet 20 Mg PO DAILY 12/01/13 Reported Losartan Potassium 100 Mg Tablet 50 Mg PO DAILY 12/01/13 Reported Levothyroxine Sodium 125 Mcg Tablet 125 Mcg PO DAILYAC 12/01/[address] Chest : 06/05/16: Findings: No axillary lymphadenopathy is seen. There is an azygos lymph node measuring 8 mm. Evaluation for hilar lymphadenopathy is difficult without IV contrast. There is a mass or nodular infiltrate within the medial aspect of the right upper lobe. It extends along the medial aspect of the right upper lobe and the lateral border of the upper right mediastinum to the right hilum. Therefore, measurements are difficult without IV contrast to separate from hilar vessels. However, it measures at least 3.9 cm in vertical dimension and 2.6 cm in transverse dimension and 2.5 cm in AP dimension. There is a spiculated mass within the superior segment of the right lower lobe which measures 2.0 cm. There is a consolidative infiltrate with air bronchograms involving the anterior basal segment of the right lower lobe extending to the fissure. Small ill-defined subcentimeter lung nodules are seen within the lateral aspect of the right upper lobe seen best on images 16 through 19. The left lung field is clear. No pleural effusion or pneumothorax is seen. The proximal bronchial tree is patent. No focal aneurysmal dilatation of the thoracic aorta is seen. The heart size is at the upper limits of normal. No significant pericardial effusion is seen. Calcified atheromatous disease of the coronary arteries is evident. No adrenal mass is seen. No osteolytic process is seen. Impression . 1. Fever post Bronch, suspect could be due to aspiration of blood from epistaxis. resolved now 2. Consolidative pneumonia RLL/ RUL postero-medially/ Bronch with Staph 3. Right upper lobe density, suspect infectious rather than neoplasm, resolved on f/u CXR. 5. Electrolyte Abnormalities 5. Leukocytosis- continue bs Abx 6. Mild renal insufficiency, suspect due to dehydration. Plan . 1. Antibiotic per ID 2. Continue Oxygen therapy - wean/titrate as able 3. f/u Bronch cultureswith Staph, await S 4. Follow blood culture results 5. Bronchodilators p.r.n. 6. f/u ct chest in 4-6 weeks [facility] TURNER MD Jun 10, 2016 11:38
[2016-06-10 15:34] VITALS: BP 123/51
[2016-06-10] MEDS: ENOXAPARIN 40 MG/0.4 ML DISP.SYRIN. SQ SCH (16:15)
[2016-06-10] MEDS: COPAXONE 40 MG SQ SCH (16:15)
[2016-06-10 19:29] VITALS: BP 117/52
[2016-06-10] MEDS: ATORVASTATIN CALCIUM 20 MG TABLET PO SCH (20:05)
[2016-06-10 23:14] VITALS: BP 108/57
[2016-06-10] MEDS: VANCOMYCIN PER PHARMACY MC PRN (23:38)
[2016-06-11] MEDS: PIPERACILLIN/TAZOBACTAM 3.375 GM in IV NORMAL SALINE 50ML 50 ML IV SCH ×4 (01:52→19:58)
[2016-06-11 06:07] LABS: BASO # 0.1 x10^3/uL (0.0-0.2); BASO % 1 % (0-3); EOS % 5 % (0-3); HEMATOCRIT 31.5 % (36.0-47.0); HEMOGLOBIN 10.4 g/dL (12.0-15.5); LYMPH # 3.3 x10^3/uL (1.0-4.8); LYMPH % 30 % (24-48); MEAN CORPUSCULAR HEMOGLOBIN 30 pg (25-35); MEAN CORPUSCULAR HGB CONC 33 g/dL (31-37); MEAN CORPUSCULAR VOLUME 93 fL (79-100); MONO % 11 % (0-9); NEUT % 54 % (31-73); PLATELET COUNT 242 x10^3/uL (140-400); RED BLOOD COUNT 3.41 x10^6/uL (3.50-5.40); RED CELL DISTRIBUTION WIDTH 13.6 % (11.5-14.5); WHITE BLOOD COUNT 11.1 x10^3/uL (4.0-11.0)
[2016-06-11] MEDS: LEVOTHYROXINE 125 MCG TABLET PO SCH (06:13)
[2016-06-11 06:30] LABS: CALCIUM 8.7 mg/dL (8.5-10.1); CREATININE 0.8 mg/dL (0.6-1.0); GFR 71.8; POTASSIUM 4.1 mmol/L (3.5-5.1)
[2016-06-11] MEDS: IPRATRPIUM/ALBUTEROL 0.5/2.5MG 3 ML NEBU. NEB SCH ×3 (06:59→20:54)
[2016-06-11 07:00] VITALS: BP 135/71
[2016-06-11] MEDS: INSULIN ASPART 300 UNITS/3 ML INSULN.PEN SQ SCH ×7 (07:30→21:59)
[2016-06-11] MEDS: PANTOPRAZOLE 40 MG TABLET. PO SCH (08:47)
[2016-06-11] MEDS: POLYETHYLENE GLYCOL 3350 17 GM PACKET. PO SCH (08:48)
[2016-06-11] MEDS: GUAIFENESIN/CODEINE 100mg/10mg 5 ML LIQUID. PO PRN (08:49)
[2016-06-11] MEDS: INDAPAMIDE 2.5 MG TABLET PO SCH (08:49)
[2016-06-11] MEDS: DOXYCYCLINE HYCLATE 100 MG TABLET PO SCH ×2 (08:50→20:34)
[2016-06-11] MEDS: DOCUSATE SODIUM 100 MG CAPSULE PO SCH (08:50)
[2016-06-11] MEDS: LOSARTAN POTASSIUM 50 MG TABLET. PO SCH (08:51)
[2016-06-11] MEDS: GUAIFENESIN ER 600 MG TABLET.ER PO SCH ×2 (08:52→20:34)
[2016-06-11] MEDS: AMLODIPINE BESYLATE 5 MG TABLET PO SCH (08:52)
[2016-06-11] MEDS: OXYBUTYNIN CHLORIDE 5 MG TABLET PO SCH ×3 (08:52→20:34)
[2016-06-11] MEDS: CLONAZEPAM 0.5 MG TABLET PO SCH ×3 (08:52→20:34)
[2016-06-11] MEDS: INSULIN DETEMIR 300 UNITS/3 ML INSULN.PEN. SQ SCH ×2 (09:02→21:59)
--- NOTE | 2016-06-11 10:13 | PDOC ---
Infectious Disease Note Subjective Subjective Better. Less cough. Still no BM ROS ROS GEN: Denies fevers, chills, sweats HEENT: Denies blurred vision, sore throat CV: Denies chest pain RESP: Denies shortness of air, cough GI: Denies n/v/d NEURO: Denies confusion, dizziness MSK: Denies weakness, joint pain/swelling Vital Sign Vital Signs Vital Signs Date Time Temp Pulse Resp B/P Pulse Ox O2 Delivery O2 Flow Rate FiO2 06/11/16 08:52 78 135/71 06/11/16 07:00 100 Nasal Cannula 2.0 06/11/16 07:00 97.8 17 97.8 Physical Exam PHYSICAL EXAM GENERAL: NAD, Alert HEENT: PERRL, OC/OP - clear NECK: Supple, no JVD, no LN LUNGS: Clear. on 02 HEART: S1S2, no gallop, no murmur ABD: Soft, NT, no organomegaly, no rebound. Mild distension EXT: No edema, no cyanosis. boot on LLE [employer]: Alert, oriented x 3, no focal neurologic deficit SKIN: No rash IV: ok Labs Lab Laboratory Tests Test 06/10/16 11:13 06/10/16 17:02 06/10/16 20:56 06/10/16 22:32 Glucose (Fingerstick) 186mg/dL (70-99) 66mg/dL (70-99) 230mg/dL (70-99) Vancomycin Level Trough 20.5mcg/mL (10.0-20.0) Vancomycin Last Dose Date 06/10/16 Vancomycin Last Dose Time 1130 Test 06/11/16 05:45 06/11/16 07:08 White Blood Count 11.1x10^3/uL (4.0-11.0) Red Blood Count 3.41x10^6/uL (3.50-5.40) Hemoglobin 10.4g/dL (12.0-15.5) Hematocrit 31.5% (36.0-47.0) Mean Corpuscular Volume 93fL (79-100) Mean Corpuscular Hemoglobin 30pg (25-35) Mean Corpuscular Hemoglobin Concent 33g/dL (31-37) Red Cell Distribution Width 13.6% (11.5-14.5) Platelet Count 242x10^3/uL (140-400) Neutrophils (%) (Auto) 54% (31-73) Lymphocytes (%) (Auto) 30% (24-48) Monocytes (%) (Auto) 11% (0-9) Eosinophils (%) (Auto) 5% (0-3) Basophils (%) (Auto) 1% (0-3) Neutrophils # (Auto) 6.0x10^3uL (1.8-7.7) Lymphocytes # (Auto) 3.3x10^3/uL (1.0-4.8) Monocytes # (Auto) 1.2x10^3/uL (0.0-1.1) Eosinophils # (Auto) 0.5x10^3/uL (0.0-0.7) Basophils # (Auto) 0.1x10^3/uL (0.0-0.2) Sodium Level 138mmol/L (136-145) Potassium Level 4.1mmol/L (3.5-5.1) Chloride Level 103mmol/L (98-107) Carbon Dioxide Level 27mmol/L (21-32) Anion Gap 8 (6-14) Blood Urea Nitrogen 14mg/dL (7-20) Creatinine 0.8mg/dL (0.6-1.0) Estimated GFR (Cockcroft-Gault) 71.8 Glucose Level 161mg/dL (70-99) Calcium Level 8.7mg/dL (8.5-10.1) Glucose (Fingerstick) 139mg/dL (70-99) Objective Assessment Fever Lung nodular infiltrates - MSSA. AFB stain neg times 2 Leukocytosis - better Aerococcus in urine Constipation Plan Plan of Care Cont Miralax Cont Doxy/Zosyn but change to po soon D/c Vanc F/u labs and cults/TB spot YVETTE BRUCE MD Jun 11, 2016 10:13
[2016-06-11 10:57] VITALS: BP 136/66
--- NOTE | 2016-06-11 12:09 | PDOC ---
PULMONARY PROGRESS NOTES Subjective Feeling improved, no complaints. Vitals Vital Signs Date Time Temp Pulse Resp B/P Pulse Ox O2 Delivery O2 Flow Rate FiO2 06/11/16 10:57 98.1 98 17 136/66 98 Room Air 98.1 06/11/16 07:00 2.0 ROS: No Nausea, No Chest Pain, No Abdominal Pain General: Alert, Oriented X4, No acute distress Lungs: Clear Cardiovascular: S1, S2 Abdomen: Soft, Non-tender Neuro Exam: Alert, Oriented, Normal Speech Extremities: No Edema Skin: Warm, Dry Labs Laboratory Tests Test 06/09/16 21:22 06/10/16 04:55 06/10/16 07:22 06/10/16 11:13 Glucose (Fingerstick) 197mg/dL (70-99) 285mg/dL (70-99) 186mg/dL (70-99) White Blood Count 10.9x10^3/uL (4.0-11.0) Red Blood Count 3.49x10^6/uL (3.50-5.40) Hemoglobin 10.6g/dL (12.0-15.5) Hematocrit 32.1% (36.0-47.0) Mean Corpuscular Volume 92fL (79-100) Mean Corpuscular Hemoglobin 30pg (25-35) Mean Corpuscular Hemoglobin Concent 33g/dL (31-37) Red Cell Distribution Width 13.8% (11.5-14.5) Platelet Count 216x10^3/uL (140-400) Neutrophils (%) (Auto) 53% (31-73) Lymphocytes (%) (Auto) 31% (24-48) Monocytes (%) (Auto) 11% (0-9) Eosinophils (%) (Auto) 4% (0-3) Basophils (%) (Auto) 1% (0-3) Neutrophils # (Auto) 5.8x10^3uL (1.8-7.7) Lymphocytes # (Auto) 3.4x10^3/uL (1.0-4.8) Monocytes # (Auto) 1.2x10^3/uL (0.0-1.1) Eosinophils # (Auto) 0.4x10^3/uL (0.0-0.7) Basophils # (Auto) 0.1x10^3/uL (0.0-0.2) Sodium Level 137mmol/L (136-145) Potassium Level 4.3mmol/L (3.5-5.1) Chloride Level 102mmol/L (98-107) Carbon Dioxide Level 27mmol/L (21-32) Anion Gap 8 (6-14) Blood Urea Nitrogen 13mg/dL (7-20) Creatinine 0.9mg/dL (0.6-1.0) Estimated GFR (Cockcroft-Gault) 62.6 Glucose Level 281mg/dL (70-99) Calcium Level 8.2mg/dL (8.5-10.1) Test 06/10/16 17:02 06/10/16 20:56 06/10/16 22:32 06/11/16 05:45 Glucose (Fingerstick) 66mg/dL (70-99) 230mg/dL (70-99) Vancomycin Level Trough 20.5mcg/mL (10.0-20.0) Vancomycin Last Dose Date 06/10/16 Vancomycin Last Dose Time 1130 White Blood Count 11.1x10^3/uL (4.0-11.0) Red Blood Count 3.41x10^6/uL (3.50-5.40) Hemoglobin 10.4g/dL (12.0-15.5) Hematocrit 31.5% (36.0-47.0) Mean Corpuscular Volume 93fL (79-100) Mean Corpuscular Hemoglobin 30pg (25-35) Mean Corpuscular Hemoglobin Concent 33g/dL (31-37) Red Cell Distribution Width 13.6% (11.5-14.5) Platelet Count 242x10^3/uL (140-400) Neutrophils (%) (Auto) 54% (31-73) Lymphocytes (%) (Auto) 30% (24-48) Monocytes (%) (Auto) 11% (0-9) Eosinophils (%) (Auto) 5% (0-3) Basophils (%) (Auto) 1% (0-3) Neutrophils # (Auto) 6.0x10^3uL (1.8-7.7) Lymphocytes # (Auto) 3.3x10^3/uL (1.0-4.8) Monocytes # (Auto) 1.2x10^3/uL (0.0-1.1) Eosinophils # (Auto) 0.5x10^3/uL (0.0-0.7) Basophils # (Auto) 0.1x10^3/uL (0.0-0.2) Sodium Level 138mmol/L (136-145) Potassium Level 4.1mmol/L (3.5-5.1) Chloride Level 103mmol/L (98-107) Carbon Dioxide Level 27mmol/L (21-32) Anion Gap 8 (6-14) Blood Urea Nitrogen 14mg/dL (7-20) Creatinine 0.8mg/dL (0.6-1.0) Estimated GFR (Cockcroft-Gault) 71.8 Glucose Level 161mg/dL (70-99) Calcium Level 8.7mg/dL (8.5-10.1) Test 06/11/16 07:08 06/11/16 11:30 Glucose (Fingerstick) 139mg/dL (70-99) 128mg/dL (70-99) Laboratory Tests Test 06/10/16 17:02 06/10/16 20:56 06/10/16 22:32 06/11/16 05:45 Glucose (Fingerstick) 66mg/dL (70-99) 230mg/dL (70-99) Vancomycin Level Trough 20.5mcg/mL (10.0-20.0) Vancomycin Last Dose Date 06/10/16 Vancomycin Last Dose Time 1130 White Blood Count 11.1x10^3/uL (4.0-11.0) Red Blood Count 3.41x10^6/uL (3.50-5.40) Hemoglobin 10.4g/dL (12.0-15.5) Hematocrit 31.5% (36.0-47.0) Mean Corpuscular Volume 93fL (79-100) Mean Corpuscular Hemoglobin 30pg (25-35) Mean Corpuscular Hemoglobin Concent 33g/dL (31-37) Red Cell Distribution Width 13.6% (11.5-14.5) Platelet Count 242x10^3/uL (140-400) Neutrophils (%) (Auto) 54% (31-73) Lymphocytes (%) (Auto) 30% (24-48) Monocytes (%) (Auto) 11% (0-9) Eosinophils (%) (Auto) 5% (0-3) Basophils (%) (Auto) 1% (0-3) Neutrophils # (Auto) 6.0x10^3uL (1.8-7.7) Lymphocytes # (Auto) 3.3x10^3/uL (1.0-4.8) Monocytes # (Auto) 1.2x10^3/uL (0.0-1.1) Eosinophils # (Auto) 0.5x10^3/uL (0.0-0.7) Basophils # (Auto) 0.1x10^3/uL (0.0-0.2) Sodium Level 138mmol/L (136-145) Potassium Level 4.1mmol/L (3.5-5.1) Chloride Level 103mmol/L (98-107) Carbon Dioxide Level 27mmol/L (21-32) Anion Gap 8 (6-14) Blood Urea Nitrogen 14mg/dL (7-20) Creatinine 0.8mg/dL (0.6-1.0) Estimated GFR (Cockcroft-Gault) 71.8 Glucose Level 161mg/dL (70-99) Calcium Level 8.7mg/dL (8.5-10.1) Test 06/11/16 07:08 06/11/16 11:30 Glucose (Fingerstick) 139mg/dL (70-99) 128mg/dL (70-99) Medications Active Scripts Medications Dose Route/Sig Days Date Category Dose Instructions Levemir (Insulin Detemir) 100 Unit/1 Ml Vial 6 Unit SQ HS 06/05/16 Reported Levemir (Insulin Detemir) 100 Unit/1 Ml Vial 10 Unit SQ DAILY08 06/05/16 Reported Hydrocodone-Apap 5-325 (Hydrocodone Bit/Acetaminophen) 1 Each Tablet 1 Tab PO PRN Q6HRS PRN 05/12/16 Rx Indapamide 1.25 Mg Tablet 05/08/16 Reported Indapamide 1.25 Mg Tablet 05/08/16 Reported Indapamide 1.25 Mg Tablet 05/08/16 Reported Indapamide 1.25 Mg Tablet 05/08/16 Reported Clonazepam 1 Mg Tablet 05/08/16 Reported Copaxone (Glatiramer Acetate) 40 Mg/1 Ml Syringe 40 Mg SQ 3X/WEEK 04/20/16 Reported Indapamide 1.25 Mg Tablet 1 Tab PO DAILY 11/26/15 Reported Omeprazole 20 Mg Capsule.dr 1 Cap PO DAILY 09/18/15 Reported Levemir Flextouch (Insulin Detemir) 100 Unit/1 Ml Insuln.pen 14 Unit SQ HS 09/17/15 Reported Hydrocodone-Apap 5-325 (Hydrocodone Bit/Acetaminophen) 1 Each Tablet 1 Tab PO PRN Q6HRS PRN 09/17/15 Reported Meclizine Hcl 25 Mg Tablet 1 Tab PO PRN TID 09/17/15 Reported Clonazepam 0.5 Mg Tablet 0.5 Mg PO TID 09/17/15 Reported Baclofen 10 Mg Tablet 5 Mg PO TID 09/19/14 Reported Copaxone (Glatiramer Acetate) 20 Mg/1 Ml Syringekit 20 Mg SQ 09/19/14 Reported Amlodipine Besylate 5 Mg Tablet 5 Mg PO DAILY 12/01/13 Reported Oxybutynin Chloride 5 Mg Tablet 5 Mg PO BID 12/01/13 Reported Novolog Flexpen (Insulin Aspart) 100 Unit/1 Ml Insuln.pen 100 Unit SQ 12/01/13 Reported 8 units tid ac Atorvastatin Calcium 20 Mg Tablet 20 Mg PO DAILY 12/01/13 Reported Losartan Potassium 100 Mg Tablet 50 Mg PO DAILY 12/01/13 Reported Levothyroxine Sodium 125 Mcg Tablet 125 Mcg PO DAILYAC 12/01/[address] Chest : 06/05/16: Findings: No axillary lymphadenopathy is seen. There is an azygos lymph node measuring 8 mm. Evaluation for hilar lymphadenopathy is difficult without IV contrast. There is a mass or nodular infiltrate within the medial aspect of the right upper lobe. It extends along the medial aspect of the right upper lobe and the lateral border of the upper right mediastinum to the right hilum. Therefore, measurements are difficult without IV contrast to separate from hilar vessels. However, it measures at least 3.9 cm in vertical dimension and 2.6 cm in transverse dimension and 2.5 cm in AP dimension. There is a spiculated mass within the superior segment of the right lower lobe which measures 2.0 cm. There is a consolidative infiltrate with air bronchograms involving the anterior basal segment of the right lower lobe extending to the fissure. Small ill-defined subcentimeter lung nodules are seen within the lateral aspect of the right upper lobe seen best on images 16 through 19. The left lung field is clear. No pleural effusion or pneumothorax is seen. The proximal bronchial tree is patent. No focal aneurysmal dilatation of the thoracic aorta is seen. The heart size is at the upper limits of normal. No significant pericardial effusion is seen. Calcified atheromatous disease of the coronary arteries is evident. No adrenal mass is seen. No osteolytic process is seen. Impression . 1. MSSA pneumonia 2. Consolidative pneumonia RLL/ RUL postero-medially/ Bronch with MSSA 3. Right upper lobe density, suspect infectious rather than neoplasm, resolved on f/u CXR. 5. Electrolyte Abnormalities 5. Leukocytosis- continue bs Abx 6. Mild renal insufficiency, suspect due to dehydration. Plan . 1. Antibiotic per ID/ consider changing to PO in am 2. Continue Oxygen therapy - wean/titrate as able 3. f/u Bronch cultures with MSSA 4. Follow blood culture results, neg 5. Bronchodilators p.r.n. 6. f/u ct chest in 4-6 weeks 7. CXR today and d/c home in [place] MD Jun 11, 2016 12:09
--- NOTE | 2016-06-11 13:01 | RAD ---
Indication: Pneumonia and cough. Time of exam 12:42 PM Comparison is made with prior chest from 06/08/2016. There has been partial clearing of the airspace infiltrate in the right base when compared with prior exam. Minimal parenchymal density remains. No new infiltrate is identified. No effusion is seen. There is no pneumothorax. Impression: Partial clearing of right basilar infiltrate when compared with exam 3 days earlier.
[2016-06-11 15:00] VITALS: BP 133/63
[2016-06-11] MEDS: ENOXAPARIN 40 MG/0.4 ML DISP.SYRIN. SQ SCH (18:16)
--- NOTE | 2016-06-11 18:54 | PDOC ---
PROGRESS NOTES Chief Complaint Chief Complaint cough, fever A/P Right upper lung infiltrate CAP, right lower lob 2c nodule, MSSA HTN Hyperglycemia stable Urinary incontinence Plan 1. s/p Bronchoscopy ,Staph, MSSA 2 abx per ID 3. add DuoNeb, albuterol, 4. SSI with Levemir 5. labs reviewed, 6. oxybutynin 7. PT/OT 8. SNU Placement History of Present Illness History of Present Illness cough fever no chills doing better Vitals Vitals Vital Signs Date Time Temp Pulse Resp B/P Pulse Ox O2 Delivery O2 Flow Rate FiO2 06/11/16 15:36 Nasal Cannula 06/11/16 15:00 98.2 87 17 133/63 99 98.2 06/11/16 11:33 1.0 Physical Exam General: Alert, Oriented X3, Cooperative Heart: Regular rate, Normal S1, Normal S2 Lungs: Clear Abdomen: Normal bowel sounds, Soft Extremities: No clubbing, No cyanosis Skin: No rashes Labs LABS Laboratory Tests Test 06/10/16 20:56 06/10/16 22:32 06/11/16 05:45 06/11/16 07:08 Glucose (Fingerstick) 230mg/dL (70-99) 139mg/dL (70-99) Vancomycin Level Trough 20.5mcg/mL (10.0-20.0) Vancomycin Last Dose Date 06/10/16 Vancomycin Last Dose Time 1130 White Blood Count 11.1x10^3/uL (4.0-11.0) Red Blood Count 3.41x10^6/uL (3.50-5.40) Hemoglobin 10.4g/dL (12.0-15.5) Hematocrit 31.5% (36.0-47.0) Mean Corpuscular Volume 93fL (79-100) Mean Corpuscular Hemoglobin 30pg (25-35) Mean Corpuscular Hemoglobin Concent 33g/dL (31-37) Red Cell Distribution Width 13.6% (11.5-14.5) Platelet Count 242x10^3/uL (140-400) Neutrophils (%) (Auto) 54% (31-73) Lymphocytes (%) (Auto) 30% (24-48) Monocytes (%) (Auto) 11% (0-9) Eosinophils (%) (Auto) 5% (0-3) Basophils (%) (Auto) 1% (0-3) Neutrophils # (Auto) 6.0x10^3uL (1.8-7.7) Lymphocytes # (Auto) 3.3x10^3/uL (1.0-4.8) Monocytes # (Auto) 1.2x10^3/uL (0.0-1.1) Eosinophils # (Auto) 0.5x10^3/uL (0.0-0.7) Basophils # (Auto) 0.1x10^3/uL (0.0-0.2) Sodium Level 138mmol/L (136-145) Potassium Level 4.1mmol/L (3.5-5.1) Chloride Level 103mmol/L (98-107) Carbon Dioxide Level 27mmol/L (21-32) Anion Gap 8 (6-14) Blood Urea Nitrogen 14mg/dL (7-20) Creatinine 0.8mg/dL (0.6-1.0) Estimated GFR (Cockcroft-Gault) 71.8 Glucose Level 161mg/dL (70-99) Calcium Level 8.7mg/dL (8.5-10.1) Test 06/11/16 11:30 06/11/16 16:36 Glucose (Fingerstick) 128mg/dL (70-99) 129mg/dL (70-99) Assessment and Plan Assessmemt and Plan Problems Medical Problems: (1) Cough Status: Acute (2) Hypokalemia Status: Acute Problems: Comment Review of Relevant I have reviewed the following items estrella (where applicable) has been applied. Labs Laboratory Tests Test 06/09/16 21:22 06/10/16 04:55 06/10/16 07:22 06/10/16 11:13 Glucose (Fingerstick) 197mg/dL (70-99) 285mg/dL (70-99) 186mg/dL (70-99) White Blood Count 10.9x10^3/uL (4.0-11.0) Red Blood Count 3.49x10^6/uL (3.50-5.40) Hemoglobin 10.6g/dL (12.0-15.5) Hematocrit 32.1% (36.0-47.0) Mean Corpuscular Volume 92fL (79-100) Mean Corpuscular Hemoglobin 30pg (25-35) Mean Corpuscular Hemoglobin Concent 33g/dL (31-37) Red Cell Distribution Width 13.8% (11.5-14.5) Platelet Count 216x10^3/uL (140-400) Neutrophils (%) (Auto) 53% (31-73) Lymphocytes (%) (Auto) 31% (24-48) Monocytes (%) (Auto) 11% (0-9) Eosinophils (%) (Auto) 4% (0-3) Basophils (%) (Auto) 1% (0-3) Neutrophils # (Auto) 5.8x10^3uL (1.8-7.7) Lymphocytes # (Auto) 3.4x10^3/uL (1.0-4.8) Monocytes # (Auto) 1.2x10^3/uL (0.0-1.1) Eosinophils # (Auto) 0.4x10^3/uL (0.0-0.7) Basophils # (Auto) 0.1x10^3/uL (0.0-0.2) Sodium Level 137mmol/L (136-145) Potassium Level 4.3mmol/L (3.5-5.1) Chloride Level 102mmol/L (98-107) Carbon Dioxide Level 27mmol/L (21-32) Anion Gap 8 (6-14) Blood Urea Nitrogen 13mg/dL (7-20) Creatinine 0.9mg/dL (0.6-1.0) Estimated GFR (Cockcroft-Gault) 62.6 Glucose Level 281mg/dL (70-99) Calcium Level 8.2mg/dL (8.5-10.1) Test 06/10/16 17:02 06/10/16 20:56 06/10/16 22:32 06/11/16 05:45 Glucose (Fingerstick) 66mg/dL (70-99) 230mg/dL (70-99) Vancomycin Level Trough 20.5mcg/mL (10.0-20.0) Vancomycin Last Dose Date 06/10/16 Vancomycin Last Dose Time 1130 White Blood Count 11.1x10^3/uL (4.0-11.0) Red Blood Count 3.41x10^6/uL (3.50-5.40) Hemoglobin 10.4g/dL (12.0-15.5) Hematocrit 31.5% (36.0-47.0) Mean Corpuscular Volume 93fL (79-100) Mean Corpuscular Hemoglobin 30pg (25-35) Mean Corpuscular Hemoglobin Concent 33g/dL (31-37) Red Cell Distribution Width 13.6% (11.5-14.5) Platelet Count 242x10^3/uL (140-400) Neutrophils (%) (Auto) 54% (31-73) Lymphocytes (%) (Auto) 30% (24-48) Monocytes (%) (Auto) 11% (0-9) Eosinophils (%) (Auto) 5% (0-3) Basophils (%) (Auto) 1% (0-3) Neutrophils # (Auto) 6.0x10^3uL (1.8-7.7) Lymphocytes # (Auto) 3.3x10^3/uL (1.0-4.8) Monocytes # (Auto) 1.2x10^3/uL (0.0-1.1) Eosinophils # (Auto) 0.5x10^3/uL (0.0-0.7) Basophils # (Auto) 0.1x10^3/uL (0.0-0.2) Sodium Level 138mmol/L (136-145) Potassium Level 4.1mmol/L (3.5-5.1) Chloride Level 103mmol/L (98-107) Carbon Dioxide Level 27mmol/L (21-32) Anion Gap 8 (6-14) Blood Urea Nitrogen 14mg/dL (7-20) Creatinine 0.8mg/dL (0.6-1.0) Estimated GFR (Cockcroft-Gault) 71.8 Glucose Level 161mg/dL (70-99) Calcium Level 8.7mg/dL (8.5-10.1) Test 06/11/16 07:08 06/11/16 11:30 06/11/16 16:36 Glucose (Fingerstick) 139mg/dL (70-99) 128mg/dL (70-99) 129mg/dL (70-99) Laboratory Tests Test 06/10/16 20:56 06/10/16 22:32 06/11/16 05:45 06/11/16 07:08 Glucose (Fingerstick) 230mg/dL (70-99) 139mg/dL (70-99) Vancomycin Level Trough 20.5mcg/mL (10.0-20.0) Vancomycin Last Dose Date 06/10/16 Vancomycin Last Dose Time 1130 White Blood Count 11.1x10^3/uL (4.0-11.0) Red Blood Count 3.41x10^6/uL (3.50-5.40) Hemoglobin 10.4g/dL (12.0-15.5) Hematocrit 31.5% (36.0-47.0) Mean Corpuscular Volume 93fL (79-100) Mean Corpuscular Hemoglobin 30pg (25-35) Mean Corpuscular Hemoglobin Concent 33g/dL (31-37) Red Cell Distribution Width 13.6% (11.5-14.5) Platelet Count 242x10^3/uL (140-400) Neutrophils (%) (Auto) 54% (31-73) Lymphocytes (%) (Auto) 30% (24-48) Monocytes (%) (Auto) 11% (0-9) Eosinophils (%) (Auto) 5% (0-3) Basophils (%) (Auto) 1% (0-3) Neutrophils # (Auto) 6.0x10^3uL (1.8-7.7) Lymphocytes # (Auto) 3.3x10^3/uL (1.0-4.8) Monocytes # (Auto) 1.2x10^3/uL (0.0-1.1) Eosinophils # (Auto) 0.5x10^3/uL (0.0-0.7) Basophils # (Auto) 0.1x10^3/uL (0.0-0.2) Sodium Level 138mmol/L (136-145) Potassium Level 4.1mmol/L (3.5-5.1) Chloride Level 103mmol/L (98-107) Carbon Dioxide Level 27mmol/L (21-32) Anion Gap 8 (6-14) Blood Urea Nitrogen 14mg/dL (7-20) Creatinine 0.8mg/dL (0.6-1.0) Estimated GFR (Cockcroft-Gault) 71.8 Glucose Level 161mg/dL (70-99) Calcium Level 8.7mg/dL (8.5-10.1) Test 06/11/16 11:30 06/11/16 16:36 Glucose (Fingerstick) 128mg/dL (70-99) 129mg/dL (70-99) Microbiology 06/05/16 Blood Culture - Final, Complete NO GROWTH AFTER 5 DAYS 06/08/16 Sputum Culture - Final, Complete 06/08/16 Sputum Result 1 - Final, Complete 06/08/16 Sputum Result 2 - Final, Complete 06/08/16 Antimicrobic Susceptibility - Final, Complete 06/05/16 Urine Culture - Final, Complete 06/05/16 Urine Culture Result 1 (GARETH) - Final, Complete Medications Current Medications Potassium Chloride (KCl Premix 10meq) 100 ml @ 100 mls/hr Q1H IV Last administered on 06/05/16 17:00; Start 06/05/16 at 10:00; Stop 06/05/16 at 13:59 ; Status DC Ibuprofen (Motrin) 800 mg 1X ONCE PO Last administered on 06/05/16 12:59; Start 06/05/16 at 13:00; Stop 06/05/16 at 13:01; Status DC Ibuprofen 800 mg 800 mg STK-MED ONCE PO ; Start 06/05/16 at 12:57; Stop at 12:58; Status DC Ceftriaxone Sodium/Sodium Chloride (Rocephin/Iv Sodium Chloride 0.9% 50ml) 50 ml @ 100 mls/hr Q24H IV Last administered on 06/08/16 16:05; Start 06/05/16 at 15:30; Stop 06/09/16 at 10:49; Status DC Amlodipine Besylate (Norvasc) 5 mg DAILY PO Last administered on 06/11/16 08: 52; Start 06/06/16 at 09:00 Atorvastatin Calcium (Lipitor) 20 mg QHS PO Last administered on 06/10/16 20: 05; Start 06/05/16 at 21:00 Baclofen (Lioresal) 5 mg TID PO Last administered on 06/09/16 14:10; Start at 21:00; Stop 06/09/16 at 16:49; Status DC Clonazepam (Klonopin) 0.5 mg TID PO Last administered on 06/11/16 14:03; Start 06/05/16 at 21:00 Insulin Aspart (Novolog) 8 units TIDBFRMEAL SQ Last administered on 06/11/16 18:23; Start 06/06/16 at 07:30 Levothyroxine Sodium (Synthroid) 125 mcg DAILY07 PO Last administered on 06:13; Start 06/06/16 at 07:00 Oxybutynin Chloride (Ditropan) 5 mg BID PO Last administered on 06/09/16 08:13 ; Start 06/05/16 at 21:00; Stop 06/09/16 at 16:50; Status DC Insulin Detemir (Levemir) 6 units QHS SQ Last administered on 06/05/16 22:16; Start 06/05/16 at 21:00; Stop 06/06/16 at 14:32; Status DC Insulin Detemir (Levemir) 10 units DAILY08 SQ Last administered on 06/11/16 09 :02; Start 06/06/16 at 08:00 Losartan Potassium (Cozaar) 50 mg DAILY PO Last administered on 06/11/16 08:51 ; Start 06/06/16 at 09:00 Meclizine HCl (Antivert) 25 mg PRN TID PRN PO DIZZINESS Last administered on 14:03; Start 06/05/16 at 16:45 Pantoprazole Sodium (Protonix) 40 mg DAILYAC PO Last administered on 06/11/16 08:47; Start 06/06/16 at 07:30 Indapamide (Lozol) 1.25 mg DAILY PO Last administered on 06/11/16 08:49; Start 06/06/16 at 09:00 Non-Formulary Medication 40 mg 3X/WEEK SQ ; Start 06/08/16 at 09:00; Status UNV Acetaminophen (Tylenol) 650 mg PRN Q6HRS PRN AK MILD PAIN / TEMP; Start at 16:45; Stop 06/05/16 at 17:12; Status DC Insulin Aspart (Novolog) 20 units 1X ONCE SQ Last administered on 06/05/16 17 :51; Start 06/05/16 at 16:45; Stop 06/05/16 at 16:51; Status DC Insulin Aspart (Novolog) 0-5 UNITS TIDWMEALS SQ Last administered on 06/06/16 12:20; Start 06/05/16 at 17:00; Stop 06/06/16 at 14:32; Status DC Dextrose 12.5 gm PRN Q15MIN PRN IV SEE COMMENTS; Start 06/05/16 at 16:45 Non-Formulary Medication 1 ea QMWF SQ Last administered on 06/10/16 16:15; Start 06/05/16 at 16:00 Acetaminophen (Tylenol) 650 mg PRN Q6HRS PRN PO MILD PAIN / TEMP Last administered on 06/06/16 13:14; Start 06/05/16 at 17:15 Docusate Sodium (Colace) 100 mg PRN DAILY PRN PO CONSTIPATION; Start 06/05/16 at 20:37 Docusate Sodium 100 mg 100 mg DAILY PO Last administered on 06/11/16 08:50; Start 06/06/16 at 09:00 Potassium Chloride (KCl Premix 10meq) 100 ml @ 100 mls/hr Q1H IV Last administered on 06/06/16 20:51; Start 06/06/16 at 07:00; Stop 06/06/16 at 10:59 ; Status DC Guaifenesin/ Codeine Phosphate (Robitussin Ac) 5 ml PRN Q6HRS PRN PO COUGH Last administered on 06/11/16 08:49; Start 06/06/16 at 13:00 Guaifenesin (Mucinex) 600 mg BID PO Last administered on 06/11/16 08:52; Start 06/06/16 at 13:00 Insulin Detemir (Levemir) 10 units QHS SQ Last administered on 06/06/16 21:01 ; Start 06/06/16 at 21:00; Stop 06/07/16 at 10:04; Status DC Insulin Aspart (Novolog) 0-9 UNITS QIDACHS SQ Last administered on 06/10/16 21 :29; Start 06/06/16 at 16:30 Dextrose 12.5 gm PRN Q15MIN PRN IV SEE COMMENTS; Start 06/06/16 at 14:30; Stop 06/08/16 at 15:55; Status DC Albuterol/ Ipratropium (Duoneb) 3 ml RTQID NEB Last administered on 06/11/16 15:35; Start 06/06/16 at 16:00 Albuterol Sulfate (Ventolin Neb Soln) 2.5 mg PRN Q4HRS PRN NEB SHORTNESS OF BREATH Last administered on 06/08/16 13:00; Start 06/06/16 at 14:30 Enoxaparin Sodium (Lovenox 40mg Syringe) 40 mg Q24H SQ Last administered on 18:16; Start 06/06/16 at 15:00 Insulin Detemir (Levemir) 15 units QHS SQ ; Start 06/07/16 at 21:00; Stop at 21:00; Status DC Potassium Chloride (Klor-Con) 40 meq 1X ONCE PO Last administered on 12:06; Start 06/07/16 at 10:15; Stop 06/07/16 at 10:16; Status DC Insulin Detemir (Levemir) 10 units QHS SQ Last administered on 06/10/16 21:30 ; Start 06/07/16 at 21:00 Ondansetron HCl (Zofran) 4 mg PRN Q6HRS PRN IV Nausea; Start 06/08/16 at 13:00 ; Stop 06/09/16 at 12:59; Status DC Fentanyl Citrate (Fentanyl 2ml Vial) 25 mcg PRN Q5MIN PRN IV MILD PAIN; Start 06/08/16 at 13:00; Stop 06/09/16 at 12:59; Status DC Fentanyl Citrate (Fentanyl 2ml Vial) 50 mcg PRN Q5MIN PRN IV MODERATE PAIN; Start 06/08/16 at 13:00; Stop 06/09/16 at 12:59; Status DC Morphine Sulfate 1 mg 1 mg PRN Q10MIN PRN IV SEVERE PAIN; Start 06/08/16 at 13: 00; Stop 06/09/16 at 12:59; Status DC Lactated Ringer's (Iv Lactated Ringers) 1,000 ml @ 0 mls/hr Q0M IV Last administered on 06/08/16 12:58; Start 06/08/16 at 12:54; Stop 06/09/16 at 00:53 ; Status DC Lidocaine HCl 2 ml 1X PRN PRN ID IV START; Start 06/08/16 at 13:00; Stop at 12:59; Status DC Hydromorphone HCl (Dilaudid) 0.5 mg PRN Q10MIN PRN IV SEV PAIN,Second choice; Start 06/08/16 at 13:00; Stop 06/09/16 at 12:59; Status DC Prochlorperazine Edisylate 5 mg 5 mg PACU PRN PRN IV NAUSEA; Start 06/08/16 at 13:00; Stop 06/09/16 at 12:59; Status DC Propofol (Diprivan) 20 ml @ As Directed STK-MED ONCE IV ; Start 06/08/16 at 13: 32; Stop 06/08/16 at 13:33; Status DC Epinephrine HCl 1 mg STK-MED ONCE .ROUTE ; Start 06/08/16 at 13:50; Stop at 13:51; Status DC Phenylephrine HCl (Carlos Eduardo-Synephrine 0.5% Nasal) 2 spray PRN Q4HRS PRN NS CONGESTION Last administered on 06/08/16 14:03; Start 06/08/16 at 14:00 Insulin Aspart 20 units 20 units 1X ONCE SQ Last administered on 06/08/16 18: 35; Start 06/08/16 at 18:45; Stop 06/08/16 at 18:46; Status DC Azithromycin/ Sodium Chloride (Zithromax/Iv Sodium Chloride 0.9% 250ml) 250 ml @ 250 mls/hr 1X ONCE IV Last administered on 06/08/16 20:47; Start 06/08/16 at 20:30; Stop 06/08/16 at 21:29; Status DC Azithromycin (Zithromax) 250 mg DAILY PO Last administered on 06/09/16 08:15; Start 06/09/16 at 09:00; Stop 06/09/16 at 10:49; Status DC Acetaminophen/ Hydrocodone Bitart (Lortab 5/325) 1 tab PRN Q4HRS PRN PO PAIN Last administered on 06/08/16 21:16; Start 06/08/16 at 21:15 Vancomycin HCl 1 each 1 each PRN DAILY PRN MC SEE COMMENTS Last administered on 06/10/16 23:38; Start 06/09/16 at 10:30; Stop 06/11/16 at 09:10; Status DC Piperacillin Sod/ Tazobactam Sod/ Sodium Chloride (Zosyn/Iv Sodium Chloride 0.9 % 50ml) 50 ml @ 100 mls/hr Q6HRS IV Last administered on 06/11/16 11:55; Start 06/09/16 at 12:00 Doxycycline Hyclate 100 mg 100 mg BID PO Last administered on 06/11/16 08:50; Start 06/09/16 at 21:00 Vancomycin HCl 2 gm/Sodium Chloride 500 ml @ 250 mls/hr 1X ONCE IV Last administered on 06/09/16 11:24; Start 06/09/16 at 11:00; Stop 06/09/16 at 12:59 ; Status DC Vancomycin HCl/ Sodium Chloride (Iv Sodium Chloride 0.9% 500ml Bag) 500 ml @ 250 mls/hr Q12H IV Last administered on 06/10/16 23:16; Start 06/09/16 at 23: 30; Stop 06/11/16 at 09:10; Status DC Vancomycin HCl 1 each 1X ONCE MC Last administered on 06/10/16 23:00; Start 06/10/16 at 23:00; Stop 06/10/16 at 23:01; Status DC Oxybutynin Chloride (Ditropan) 5 mg [id number] PO Last administered on 06/11/16 14 :03; Start 06/09/16 at 21:00 Polyethylene Glycol (miraLAX PACKET) 17 gm DAILY PO Last administered on 08:48; Start 06/10/16 at 11:00 Active Scripts Active Hydrocodone-Apap 5-325 (Hydrocodone Bit/Acetaminophen) 1 Each Tablet 1 Tab PO PRN Q6HRS PRN Reported Levemir (Insulin Detemir) 100 Unit/1 Ml Vial 6 Unit SQ HS Levemir (Insulin Detemir) 100 Unit/1 Ml Vial 10 Unit SQ DAILY08 Indapamide 1.25 Mg Tablet Indapamide 1.25 Mg Tablet Indapamide 1.25 Mg Tablet Indapamide 1.25 Mg Tablet Clonazepam 1 Mg Tablet Copaxone (Glatiramer Acetate) 40 Mg/1 Ml Syringe 40 Mg SQ 3X/WEEK Indapamide 1.25 Mg Tablet 1 Tab PO DAILY Omeprazole 20 Mg Capsule.dr 1 Cap PO DAILY Levemir Flextouch (Insulin Detemir) 100 Unit/1 Ml Insuln.pen 14 Unit SQ HS Hydrocodone-Apap 5-325 (Hydrocodone Bit/Acetaminophen) 1 Each Tablet 1 Tab PO PRN Q6HRS PRN Meclizine Hcl 25 Mg Tablet 1 Tab PO PRN TID Clonazepam 0.5 Mg Tablet 0.5 Mg PO TID Baclofen 10 Mg Tablet 5 Mg PO TID Copaxone (Glatiramer Acetate) 20 Mg/1 Ml Syringekit 20 Mg SQ Amlodipine Besylate 5 Mg Tablet 5 Mg PO DAILY Oxybutynin Chloride 5 Mg Tablet 5 Mg PO BID Novolog Flexpen (Insulin Aspart) 100 Unit/1 Ml Insuln.pen 100 Unit SQ 8 units tid ac Atorvastatin Calcium 20 Mg Tablet 20 Mg PO DAILY Losartan Potassium 100 Mg Tablet 50 Mg PO DAILY Levothyroxine Sodium 125 Mcg Tablet 125 Mcg PO DAILYAC Vitals/I & O Vital Sign - Last 24 Hours 06/10/16 06/10/16 06/10/16 06/10/16 19:29 20:00 20:28 23:14 Temp 98.1 98.1 98.1 98.1 Pulse 87 94 Resp 18 18 B/P 117/52 108/57 Pulse Ox 100 99 97 O2 Delivery Room Air Nasal Cannula Nasal Cannula Room Air O2 Flow Rate 2.0 2.0 06/11/16 06/11/16 06/11/16 06/11/16 07:00 07:00 08:05 08:51 Temp 97.8 97.8 Pulse 78 78 Resp 17 B/P 135/71 135/71 Pulse Ox 95 100 O2 Delivery Nasal Cannula Nasal Cannula Nasal Cannula O2 Flow Rate 1.0 2.0 1.0 06/11/16 06/11/16 06/11/16 06/11/16 08:52 10:57 11:33 15:00 Temp 98.1 98.2 98.1 98.2 Pulse 78 98 87 Resp 17 B/P 135/71 136/66 133/63 Pulse Ox 98 99 O2 Delivery Room Air Nasal Cannula Room Air O2 Flow Rate 1.0 06/11/16 15:36 O2 Delivery Nasal Cannula Intake and Output 06/10/16 06/10/16 06/11/16 15:00 23:00 07:00 Intake Total 930 ml 450 ml 440 ml Balance 930 ml 450 ml 440 ml GINO MARTINEZ MD Jun 11, 2016 18:53
[2016-06-11 19:00] VITALS: BP 134/57
[2016-06-11] MEDS: ATORVASTATIN CALCIUM 20 MG TABLET PO SCH (20:34)
[2016-06-11] MEDS: HYDROCODONE/APAP 5/325MG TABLET. PO PRN (21:56)
[2016-06-11 23:00] VITALS: BP 118/61
[2016-06-12] MEDS: PIPERACILLIN/TAZOBACTAM 3.375 GM in IV NORMAL SALINE 50ML 50 ML IV SCH ×2 (00:17→06:04)
[2016-06-12 03:00] VITALS: BP 133/70
[2016-06-12 05:41] LABS: BASO # 0.1 x10^3/uL (0.0-0.2); BASO % 1 % (0-3); EOS % 5 % (0-3); HEMATOCRIT 32.5 % (36.0-47.0); HEMOGLOBIN 10.8 g/dL (12.0-15.5); LYMPH # 3.3 x10^3/uL (1.0-4.8); LYMPH % 35 % (24-48); MEAN CORPUSCULAR HEMOGLOBIN 30 pg (25-35); MEAN CORPUSCULAR HGB CONC 33 g/dL (31-37); MEAN CORPUSCULAR VOLUME 92 fL (79-100); MONO % 10 % (0-9); NEUT % 49 % (31-73); PLATELET COUNT 262 x10^3/uL (140-400); RED BLOOD COUNT 3.54 x10^6/uL (3.50-5.40); RED CELL DISTRIBUTION WIDTH 13.9 % (11.5-14.5); WHITE BLOOD COUNT 9.4 x10^3/uL (4.0-11.0)
[2016-06-12] MEDS: LEVOTHYROXINE 125 MCG TABLET PO SCH (06:03)
[2016-06-12 06:16] LABS: CALCIUM 8.8 mg/dL (8.5-10.1); GFR 55.5; POTASSIUM 3.8 mmol/L (3.5-5.1)
[2016-06-12 07:00] VITALS: BP 149/67
[2016-06-12] MEDS: INSULIN ASPART 300 UNITS/3 ML INSULN.PEN SQ SCH ×4 (07:30→12:21)
[2016-06-12] MEDS: IPRATRPIUM/ALBUTEROL 0.5/2.5MG 3 ML NEBU. NEB SCH ×2 (07:55→11:51)
[2016-06-12] MEDS: POLYETHYLENE GLYCOL 3350 17 GM PACKET. PO SCH (08:31)
[2016-06-12] MEDS: DOXYCYCLINE HYCLATE 100 MG TABLET PO SCH (08:31)
[2016-06-12] MEDS: GUAIFENESIN ER 600 MG TABLET.ER PO SCH (08:32)
[2016-06-12] MEDS: INDAPAMIDE 2.5 MG TABLET PO SCH (08:32)
[2016-06-12] MEDS: OXYBUTYNIN CHLORIDE 5 MG TABLET PO SCH ×2 (08:33→14:40)
[2016-06-12] MEDS: AMLODIPINE BESYLATE 5 MG TABLET PO SCH (08:33)
[2016-06-12] MEDS: DOCUSATE SODIUM 100 MG CAPSULE PO SCH (08:33)
[2016-06-12] MEDS: CLONAZEPAM 0.5 MG TABLET PO SCH ×2 (08:34→14:40)
[2016-06-12] MEDS: LOSARTAN POTASSIUM 50 MG TABLET. PO SCH (08:34)
[2016-06-12] MEDS: HYDROCODONE/APAP 5/325MG TABLET. PO PRN (08:34)
[2016-06-12] MEDS: PANTOPRAZOLE 40 MG TABLET. PO SCH (08:34)
[2016-06-12] MEDS: INSULIN DETEMIR 300 UNITS/3 ML INSULN.PEN. SQ SCH (08:40)
--- NOTE | 2016-06-12 09:20 | PDOC ---
Infectious Disease Note Subjective Subjective Better. Less cough. + BM ROS ROS GEN: Denies fevers, chills, sweats HEENT: Denies blurred vision, sore throat CV: Denies chest pain RESP: Denies shortness of air, cough GI: Denies n/v/d NEURO: Denies confusion, dizziness MSK: Denies weakness, joint pain/swelling Vital Sign Vital Signs Vital Signs Date Time Temp Pulse Resp B/P Pulse Ox O2 Delivery O2 Flow Rate FiO2 06/12/16 08:34 Room Air 06/12/16 08:34 86 149/67 06/12/16 07:57 98 06/12/16 07:00 97.0 18 97.0 06/11/16 11:33 1.0 Physical Exam PHYSICAL EXAM GENERAL: NAD, Alert HEENT: PERRL, OC/OP - clear NECK: Supple, no JVD, no LN LUNGS: Clear. on 02 HEART: S1S2, no gallop, no murmur ABD: Soft, NT, no organomegaly, no rebound. Mild distension EXT: No edema, no cyanosis. boot on [employer]: Alert, oriented x 3, no focal neurologic deficit SKIN: No rash IV: ok Left wrist Labs Lab Laboratory Tests Test 06/11/16 11:30 06/11/16 16:36 06/11/16 21:08 06/12/16 05:15 Glucose (Fingerstick) 128mg/dL (70-99) 129mg/dL (70-99) 165mg/dL (70-99) White Blood Count 9.4x10^3/uL (4.0-11.0) Red Blood Count 3.54x10^6/uL (3.50-5.40) Hemoglobin 10.8g/dL (12.0-15.5) Hematocrit 32.5% (36.0-47.0) Mean Corpuscular Volume 92fL (79-100) Mean Corpuscular Hemoglobin 30pg (25-35) Mean Corpuscular Hemoglobin Concent 33g/dL (31-37) Red Cell Distribution Width 13.9% (11.5-14.5) Platelet Count 262x10^3/uL (140-400) Neutrophils (%) (Auto) 49% (31-73) Lymphocytes (%) (Auto) 35% (24-48) Monocytes (%) (Auto) 10% (0-9) Eosinophils (%) (Auto) 5% (0-3) Basophils (%) (Auto) 1% (0-3) Neutrophils # (Auto) 4.6x10^3uL (1.8-7.7) Lymphocytes # (Auto) 3.3x10^3/uL (1.0-4.8) Monocytes # (Auto) 1.0x10^3/uL (0.0-1.1) Eosinophils # (Auto) 0.5x10^3/uL (0.0-0.7) Basophils # (Auto) 0.1x10^3/uL (0.0-0.2) Sodium Level 138mmol/L (136-145) Potassium Level 3.8mmol/L (3.5-5.1) Chloride Level 103mmol/L (98-107) Carbon Dioxide Level 27mmol/L (21-32) Anion Gap 8 (6-14) Blood Urea Nitrogen 13mg/dL (7-20) Creatinine 1.0mg/dL (0.6-1.0) Estimated GFR (Cockcroft-Gault) 55.5 Glucose Level 104mg/dL (70-99) Calcium Level 8.8mg/dL (8.5-10.1) Test 06/12/16 07:15 Glucose (Fingerstick) 92mg/dL (70-99) Objective Assessment Fever - better Lung nodular infiltrates - MSSA. AFB stain neg times 2 Leukocytosis - better Aerococcus in urine Constipation Plan Plan of Care Cont Miralax D/c Doxy/Zosyn Begin cephalexin 500 mg po QID for 10 days F/u labs and cults/TB spot YVETTE BRUCE MD Jun 12, 2016 09:20
[2016-06-12 11:16] VITALS: BP 136/54
--- NOTE | 2016-06-12 11:40 | PDOC ---
PULMONARY PROGRESS NOTES Subjective Feeling improved, no complaints. Vitals Vital Signs Date Time Temp Pulse Resp B/P Pulse Ox O2 Delivery O2 Flow Rate FiO2 06/12/16 11:16 96.9 86 18 136/54 97 Room Air 96.9 06/11/16 11:33 1.0 ROS: No Nausea, No Chest Pain, No Abdominal Pain General: Alert, Oriented X4, No acute distress Lungs: Clear Cardiovascular: S1, S2 Abdomen: Soft, Non-tender Neuro Exam: Alert, Oriented, Normal Speech Extremities: No Edema Skin: Warm, Dry Labs Laboratory Tests Test 06/10/16 17:02 06/10/16 20:56 06/10/16 22:32 06/11/16 05:45 Glucose (Fingerstick) 66mg/dL (70-99) 230mg/dL (70-99) Vancomycin Level Trough 20.5mcg/mL (10.0-20.0) Vancomycin Last Dose Date 06/10/16 Vancomycin Last Dose Time 1130 White Blood Count 11.1x10^3/uL (4.0-11.0) Red Blood Count 3.41x10^6/uL (3.50-5.40) Hemoglobin 10.4g/dL (12.0-15.5) Hematocrit 31.5% (36.0-47.0) Mean Corpuscular Volume 93fL (79-100) Mean Corpuscular Hemoglobin 30pg (25-35) Mean Corpuscular Hemoglobin Concent 33g/dL (31-37) Red Cell Distribution Width 13.6% (11.5-14.5) Platelet Count 242x10^3/uL (140-400) Neutrophils (%) (Auto) 54% (31-73) Lymphocytes (%) (Auto) 30% (24-48) Monocytes (%) (Auto) 11% (0-9) Eosinophils (%) (Auto) 5% (0-3) Basophils (%) (Auto) 1% (0-3) Neutrophils # (Auto) 6.0x10^3uL (1.8-7.7) Lymphocytes # (Auto) 3.3x10^3/uL (1.0-4.8) Monocytes # (Auto) 1.2x10^3/uL (0.0-1.1) Eosinophils # (Auto) 0.5x10^3/uL (0.0-0.7) Basophils # (Auto) 0.1x10^3/uL (0.0-0.2) Sodium Level 138mmol/L (136-145) Potassium Level 4.1mmol/L (3.5-5.1) Chloride Level 103mmol/L (98-107) Carbon Dioxide Level 27mmol/L (21-32) Anion Gap 8 (6-14) Blood Urea Nitrogen 14mg/dL (7-20) Creatinine 0.8mg/dL (0.6-1.0) Estimated GFR (Cockcroft-Gault) 71.8 Glucose Level 161mg/dL (70-99) Calcium Level 8.7mg/dL (8.5-10.1) Test 06/11/16 07:08 06/11/16 11:30 06/11/16 16:36 06/11/16 21:08 Glucose (Fingerstick) 139mg/dL (70-99) 128mg/dL (70-99) 129mg/dL (70-99) 165mg/dL (70-99) Test 06/12/16 05:15 06/12/16 07:15 06/12/16 11:05 White Blood Count 9.4x10^3/uL (4.0-11.0) Red Blood Count 3.54x10^6/uL (3.50-5.40) Hemoglobin 10.8g/dL (12.0-15.5) Hematocrit 32.5% (36.0-47.0) Mean Corpuscular Volume 92fL (79-100) Mean Corpuscular Hemoglobin 30pg (25-35) Mean Corpuscular Hemoglobin Concent 33g/dL (31-37) Red Cell Distribution Width 13.9% (11.5-14.5) Platelet Count 262x10^3/uL (140-400) Neutrophils (%) (Auto) 49% (31-73) Lymphocytes (%) (Auto) 35% (24-48) Monocytes (%) (Auto) 10% (0-9) Eosinophils (%) (Auto) 5% (0-3) Basophils (%) (Auto) 1% (0-3) Neutrophils # (Auto) 4.6x10^3uL (1.8-7.7) Lymphocytes # (Auto) 3.3x10^3/uL (1.0-4.8) Monocytes # (Auto) 1.0x10^3/uL (0.0-1.1) Eosinophils # (Auto) 0.5x10^3/uL (0.0-0.7) Basophils # (Auto) 0.1x10^3/uL (0.0-0.2) Sodium Level 138mmol/L (136-145) Potassium Level 3.8mmol/L (3.5-5.1) Chloride Level 103mmol/L (98-107) Carbon Dioxide Level 27mmol/L (21-32) Anion Gap 8 (6-14) Blood Urea Nitrogen 13mg/dL (7-20) Creatinine 1.0mg/dL (0.6-1.0) Estimated GFR (Cockcroft-Gault) 55.5 Glucose Level 104mg/dL (70-99) Calcium Level 8.8mg/dL (8.5-10.1) Glucose (Fingerstick) 92mg/dL (70-99) 251mg/dL (70-99) Laboratory Tests Test 06/11/16 16:36 06/11/16 21:08 06/12/16 05:15 06/12/16 07:15 Glucose (Fingerstick) 129mg/dL (70-99) 165mg/dL (70-99) 92mg/dL (70-99) White Blood Count 9.4x10^3/uL (4.0-11.0) Red Blood Count 3.54x10^6/uL (3.50-5.40) Hemoglobin 10.8g/dL (12.0-15.5) Hematocrit 32.5% (36.0-47.0) Mean Corpuscular Volume 92fL (79-100) Mean Corpuscular Hemoglobin 30pg (25-35) Mean Corpuscular Hemoglobin Concent 33g/dL (31-37) Red Cell Distribution Width 13.9% (11.5-14.5) Platelet Count 262x10^3/uL (140-400) Neutrophils (%) (Auto) 49% (31-73) Lymphocytes (%) (Auto) 35% (24-48) Monocytes (%) (Auto) 10% (0-9) Eosinophils (%) (Auto) 5% (0-3) Basophils (%) (Auto) 1% (0-3) Neutrophils # (Auto) 4.6x10^3uL (1.8-7.7) Lymphocytes # (Auto) 3.3x10^3/uL (1.0-4.8) Monocytes # (Auto) 1.0x10^3/uL (0.0-1.1) Eosinophils # (Auto) 0.5x10^3/uL (0.0-0.7) Basophils # (Auto) 0.1x10^3/uL (0.0-0.2) Sodium Level 138mmol/L (136-145) Potassium Level 3.8mmol/L (3.5-5.1) Chloride Level 103mmol/L (98-107) Carbon Dioxide Level 27mmol/L (21-32) Anion Gap 8 (6-14) Blood Urea Nitrogen 13mg/dL (7-20) Creatinine 1.0mg/dL (0.6-1.0) Estimated GFR (Cockcroft-Gault) 55.5 Glucose Level 104mg/dL (70-99) Calcium Level 8.8mg/dL (8.5-10.1) Test 06/12/16 11:05 Glucose (Fingerstick) 251mg/dL (70-99) Medications Active Scripts Medications Dose Route/Sig Days Date Category Dose Instructions Levemir (Insulin Detemir) 100 Unit/1 Ml Vial 6 Unit SQ HS 06/05/16 Reported Levemir (Insulin Detemir) 100 Unit/1 Ml Vial 10 Unit SQ DAILY08 06/05/16 Reported Hydrocodone-Apap 5-325 (Hydrocodone Bit/Acetaminophen) 1 Each Tablet 1 Tab PO PRN Q6HRS PRN 05/12/16 Rx Indapamide 1.25 Mg Tablet 05/08/16 Reported Indapamide 1.25 Mg Tablet 05/08/16 Reported Indapamide 1.25 Mg Tablet 05/08/16 Reported Indapamide 1.25 Mg Tablet 05/08/16 Reported Clonazepam 1 Mg Tablet 05/08/16 Reported Copaxone (Glatiramer Acetate) 40 Mg/1 Ml Syringe 40 Mg SQ 3X/WEEK 04/20/16 Reported Indapamide 1.25 Mg Tablet 1 Tab PO DAILY 11/26/15 Reported Omeprazole 20 Mg Capsule.dr 1 Cap PO DAILY 09/18/15 Reported Levemir Flextouch (Insulin Detemir) 100 Unit/1 Ml Insuln.pen 14 Unit SQ HS 09/17/15 Reported Hydrocodone-Apap 5-325 (Hydrocodone Bit/Acetaminophen) 1 Each Tablet 1 Tab PO PRN Q6HRS PRN 09/17/15 Reported Meclizine Hcl 25 Mg Tablet 1 Tab PO PRN TID 09/17/15 Reported Clonazepam 0.5 Mg Tablet 0.5 Mg PO TID 09/17/15 Reported Baclofen 10 Mg Tablet 5 Mg PO TID 09/19/14 Reported Copaxone (Glatiramer Acetate) 20 Mg/1 Ml Syringekit 20 Mg SQ 09/19/14 Reported Amlodipine Besylate 5 Mg Tablet 5 Mg PO DAILY 12/01/13 Reported Oxybutynin Chloride 5 Mg Tablet 5 Mg PO BID 12/01/13 Reported Novolog Flexpen (Insulin Aspart) 100 Unit/1 Ml Insuln.pen 100 Unit SQ 12/01/13 Reported 8 units tid ac Atorvastatin Calcium 20 Mg Tablet 20 Mg PO DAILY 12/01/13 Reported Losartan Potassium 100 Mg Tablet 50 Mg PO DAILY 12/01/13 Reported Levothyroxine Sodium 125 Mcg Tablet 125 Mcg PO DAILYAC 12/01/[address] Chest : 06/05/16: Findings: No axillary lymphadenopathy is seen. There is an azygos lymph node measuring 8 mm. Evaluation for hilar lymphadenopathy is difficult without IV contrast. There is a mass or nodular infiltrate within the medial aspect of the right upper lobe. It extends along the medial aspect of the right upper lobe and the lateral border of the upper right mediastinum to the right hilum. Therefore, measurements are difficult without IV contrast to separate from hilar vessels. However, it measures at least 3.9 cm in vertical dimension and 2.6 cm in transverse dimension and 2.5 cm in AP dimension. There is a spiculated mass within the superior segment of the right lower lobe which measures 2.0 cm. There is a consolidative infiltrate with air bronchograms involving the anterior basal segment of the right lower lobe extending to the fissure. Small ill-defined subcentimeter lung nodules are seen within the lateral aspect of the right upper lobe seen best on images 16 through 19. The left lung field is clear. No pleural effusion or pneumothorax is seen. The proximal bronchial tree is patent. No focal aneurysmal dilatation of the thoracic aorta is seen. The heart size is at the upper limits of normal. No significant pericardial effusion is seen. Calcified atheromatous disease of the coronary arteries is evident. No adrenal mass is seen. No osteolytic process is seen. Impression . 1. MSSA pneumonia 2. Consolidative pneumonia RLL/ RUL postero-medially/ Bronch with MSSA 3. Right upper lobe density, suspect infectious rather than neoplasm, resolved on f/u CXR. 5. Electrolyte Abnormalities 5. Leukocytosis- continue bs Abx 6. Mild renal insufficiency, suspect due to dehydration. Plan . 1. Antibiotic per ID/ consider changing to PO 2. Continue Oxygen therapy - wean/titrate as able 3. f/u Bronch cultures with MSSA 4. Follow blood culture results, neg 5. Bronchodilators p.r.n. 6. Does not need f/u ct chest . will do cxr prior to office visit. CXR 06/11 continues to improve d/c home / f/u ion july with me with cxr BAY TURNER MD Jun 12, 2016 11:40
[2016-06-12] MEDS: CEPHALEXIN 250 MG CAPSULE PO SCH ×2 (12:13→13:00)
[2016-06-12] MEDS: ENOXAPARIN 40 MG/0.4 ML DISP.SYRIN. SQ SCH (15:00)
[2016-06-12] MEDS: COPAXONE 40 MG SQ SCH (16:00)
--- NOTE | 2016-06-12 22:43 | DS ---
DATE OF DISCHARGE: 06/12/2016 DISCHARGE DIAGNOSES: 1. Right upper lung pneumonia, methicillin sensitive Staphylococcus aureus, status post bronchoscopy, bronchoalveolar lavage positive for methicillin-resistant Staphylococcus aureus. 2. Hypertension. 3. Leukocytosis due to methicillin-sensitive Staphylococcus aureus pneumonia. 4. Constipation. 5. Aerococcus in urine. 6. Hyperglycemia, resolved. 7. Urinary incontinence. BRIEF HOSPITAL COURSE: A 66-year-old female patient admitted to the hospital on 06/13/2016 for fever, cough and weakness. Initially, she was suspected for viral syndrome later the patient was diagnosed with MSSA pneumonia. During hospitalization, she had bronchoscopy and cultures positive for MSSA. In the hospital, the patient was seen by Dr. Lezama and Dr. Pardo and with antibiotics, her symptoms improved. Antibiotics have been changed to Keflex 500 mg four times a day. During hospitalization, the patient showed some physical weakness. She was requiring physical therapy, occupational therapy and given her debilitation needs, subacute rehabilitation for a couple of weeks. DISCHARGE EXAMINATION: GENERAL: Alert, oriented x 3. HEART: S1, S2 present. LUNGS: Clear to auscultation. ABDOMEN: Soft, nontender, no organomegaly. EXTREMITIES: No edema. DISCHARGE DISPOSITION: snf facility. DISCHARGE CONDITION: Stable. DISCHARGE FOLLOWUP: With primary care doctor in 4 weeks. DISCHARGE MEDICATIONS PROGNOSIS: Good. MEDICATIONS: Reviewed and reconciled. Please see MRAD. Total time spent for discharge is 32 minutes for patient education, counseling, and coordination of care. GINO MARTINEZ MD DR: GERMAINE/amee JOB#: [id number] / [id number] [facility]
== END 2016-06-12 15:30 | disposition short-term general hospital (02) | DRG 853 ==
LOC: ER 09:17 → OBSVTOIN 12:00 → 5 SOUTH 12:00
PROVIDERS: ADMIT Internal Medicine; ATTEND Internal Medicine
PROC: 0B948ZX Drainage of Right Upper Lobe Bronchus, Via Natural or Artificial Opening Endoscopic, Diagnostic (ICD-10-PCS; 2016-06-08)
PROC: 0W3Q7ZZ Control Bleeding in Respiratory Tract, Via Natural or Artificial Opening (ICD-10-PCS; 2016-06-08)
PROC: 0B968ZX Drainage of Right Lower Lobe Bronchus, Via Natural or Artificial Opening Endoscopic, Diagnostic (ICD-10-PCS; principal; 2016-06-08 13:30)
DX: A41.9 Sepsis, unspecified organism (principal); J15.211 Pneumonia due to Methicillin susceptible Staphylococcus aureus; E03.9 Hypothyroidism, unspecified; E11.9 Type 2 diabetes mellitus without complications; E78.00 Pure hypercholesterolemia, unspecified; E78.5 Hyperlipidemia, unspecified; E87.6 Hypokalemia; G35 Multiple sclerosis; I10 Essential (primary) hypertension; J40 Bronchitis, not specified as acute or chronic; K21.9 Gastro-esophageal reflux disease without esophagitis; K59.00 Constipation, unspecified; M41.9 Scoliosis, unspecified; N28.9 Disorder of kidney and ureter, unspecified; R32 Unspecified urinary incontinence; Z79.4 Long term (current) use of insulin; Z82.49 Family history of ischemic heart disease and other diseases of the circulatory system; Z87.440 Personal history of urinary (tract) infections; R04.0 Epistaxis
CPT/HCPCS: 31622; 36415; 71010; 71020; 71250; 80048; 80053; 80076; 80202; 81001; 82947; 83735; 85007; 85027; 86481; 87040; 87070; 87086; 87102; 87116; 87186; 87205; 87804; 88112; 94250; 94640; 94760; J0456; J0696; J1650; J1815; J2543; J2704; J3370; J3480; J7040; J7050; J7120; J7620; J8597; Q0144; 97116; 97530; 97535; J7030

== ENCOUNTER → 2016-07-15 | Outpatient (CLI) | payer MEDICARE ==
[~2016-07-15] MED LIST changes: +INSU100V13 SQ
--- NOTE | 2016-07-15 11:00 | RAD ---
Indication follow-up pneumonia. PA and lateral views of the chest were obtained and are compared to a single view examination June 11, 2016. The heart and pulmonary vessels are normal. Previously identified infiltrate in the right lung, compatible with pneumonia, has cleared. A new or unexpected finding in the chest is not seen. There is no pleural fluid or pneumothorax. IMPRESSION: Interval clearing of infiltrate, compatible with pneumonia, seen previously in the right lung.
== END | disposition home or self-care (01) ==
LOC: RAD 10:08
PROVIDERS: ATTEND Internal Medicine Critical Care Medicine
DX: J18.9 Pneumonia, unspecified organism (principal)
CPT/HCPCS: 71020

== ENCOUNTER 2016-10-08 16:26 | Emergency (ER) | payer MEDICARE ==
[~2016-10-08] VITALS: Ht 170.2 cm; Wt 108.0 kg
--- NOTE | 2016-10-08 16:38 | PHYS DOC ---
Past Medical History Past Medical History: Anxiety, Diabetes-Type II, GERD, High Cholesterol, Hypertension, Hypothyroid, Other Additional Past Medical Histor: GRAVES, mULTIPLE SCLEROSIS, Past Surgical History: , Other Additional Past Surgical Histo: THYROID RADIATION, shoulder surgery Alcohol Use: Rarely Drug Use: None Adult General Chief Complaint Chief Complaint: WEAKNESS/GENERALIZED HPI HPI Patient is a 66 year old female who presents with today onset fever 100.2 and increased generalized weakness. denies cough, dysuria, headache/neck stiffness, skin rash, or specific joint pain. some mild urinary frequency. no vomiting or diarrhea. complex hx of Grave's disease, MS, and IDDM.[] Review of Systems Review of Systems Constitutional: Denies fever or chills [] Eyes: Denies change in visual acuity, redness, or eye pain [] HENT: Denies nasal congestion or sore throat [] Respiratory: Denies cough or shortness of breath [] Cardiovascular: No additional information not addressed in HPI [] GI: Denies abdominal pain, nausea, vomiting, bloody stools or diarrhea [] : Denies dysuria or hematuria [] Musculoskeletal: Denies back pain or joint pain [] Integument: Denies rash or skin lesions [] Neurologic: Denies headache, focal weakness or sensory changes [] Endocrine: Denies polyuria or polydipsia [] Current Medications Current Medications Current Medications Medications (Trade) Dose Ordered Sig/Emely Start Time Stop Time Status Last Admin Dose Admin Ceftriaxone Sodium 50 ml @ 100 mls/hr 1X ONCE 10/08/16 19:15 10/08/16 19:44 Allergies Allergies Allergies Coded Allergies Type Severity Reaction Last Updated Verified No Known Drug Allergies 06/08/16 No Physical Exam Physical Exam Constitutional: Well developed, well nourished, no acute distress, non-toxic appearance. [] HENT: Normocephalic, atraumatic, bilateral external ears normal, oropharynx moist, no oral exudates, nose normal. [] Eyes: PERRLA, EOMI, conjunctiva normal, no discharge. [] Neck: Normal range of motion, no tenderness, supple, no stridor. [] Cardiovascular:Heart rate regular rhythm, no murmur [] Lungs & Thorax: Bilateral breath sounds clear to auscultation [] Abdomen: Bowel sounds normal, soft, no tenderness, no masses, no pulsatile masses. [] Skin: Warm, dry, no erythema, no rash. [] Back: No tenderness, no CVA tenderness. [] Extremities: No tenderness, no cyanosis, no clubbing, ROM intact, no edema. [] Neurologic: Alert and oriented X 3, normal motor function, normal sensory function, no focal deficits noted. [] Psychologic: Affect normal, judgement normal, mood normal. [] Current Patient Data Vital Signs Vital Signs Date Time Temp Pulse Resp B/P (MAP) Pulse Ox O2 Delivery O2 Flow Rate FiO2 10/08/16 16:26 98.6 82 18 136/54 (81) 97 Room Air 98.6 Lab Values Laboratory Tests Test 10/08/16 16:50 10/08/16 17:42 White Blood Count 6.3 x10^3/uL (4.0-11.0) Red Blood Count 4.02 x10^6/uL (3.50-5.40) Hemoglobin 12.0 g/dL (12.0-15.5) Hematocrit 35.0 % (36.0-47.0) L Mean Corpuscular Volume 87 fL (79-100) Mean Corpuscular Hemoglobin 30 pg (25-35) Mean Corpuscular Hemoglobin Concent 34 g/dL (31-37) Red Cell Distribution Width 13.6 % (11.5-14.5) Platelet Count 219 x10^3/uL (140-400) Neutrophils (%) (Auto) 50 % (31-73) Lymphocytes (%) (Auto) 37 % (24-48) Monocytes (%) (Auto) 9 % (0-9) Eosinophils (%) (Auto) 3 % (0-3) Basophils (%) (Auto) 1 % (0-3) Neutrophils # (Auto) 3.1 x10^3uL (1.8-7.7) Lymphocytes # (Auto) 2.3 x10^3/uL (1.0-4.8) Monocytes # (Auto) 0.6 x10^3/uL (0.0-1.1) Eosinophils # (Auto) 0.2 x10^3/uL (0.0-0.7) Basophils # (Auto) 0.1 x10^3/uL (0.0-0.2) Sodium Level 139 mmol/L (136-145) Potassium Level 4.0 mmol/L (3.5-5.1) Chloride Level 103 mmol/L (98-107) Carbon Dioxide Level 28 mmol/L (21-32) Anion Gap 8 (6-14) Blood Urea Nitrogen 21 mg/dL (7-20) H Creatinine 0.9 mg/dL (0.6-1.0) Estimated GFR (Cockcroft-Gault) 62.6 BUN/Creatinine Ratio 23 (6-20) H Glucose Level 78 mg/dL (70-99) Calcium Level 8.9 mg/dL (8.5-10.1) Total Bilirubin 0.3 mg/dL (0.2-1.0) Aspartate Amino Transferase (AST) 16 U/L (15-37) Alanine Aminotransferase (ALT) 18 U/L (14-59) Alkaline Phosphatase 101 U/L (46-116) Total Protein 6.5 g/dL (6.4-8.2) Albumin 3.4 g/dL (3.4-5.0) Albumin/Globulin Ratio 1.1 (1.0-1.7) Urine Collection Type Unknown Urine Color Yellow Urine Clarity Turbid Urine pH 7.0 Urine Specific [place] 1.010 Urine Protein Negative mg/dL (NEG-TRACE) Urine Glucose (UA) 250 mg/dL (NEG) Urine Ketones (Stick) Negative mg/dL (NEG) Urine Blood Moderate (NEG) Urine Nitrite Negative (NEG) Urine Bilirubin Negative (NEG) Urine Urobilinogen Dipstick 0.2 mg/dL (0.2 mg/dL) Urine Leukocyte Esterase Large (NEG) Urine RBC 3-5 /HPF (0-2) Urine WBC Tntc /HPF (0-4) Urine Squamous Epithelial Cells Few /LPF Urine Bacteria Moderate /HPF (0-FEW) Urine Mucus Slight /LPF Laboratory Tests 10/08/16 16:50 Laboratory Tests 10/08/16 16:50 EKG EKG [] Radiology/Procedures Radiology/Procedures CXR neg per rad report[] Course & Med Decision Making Course & Med Decision Making Pertinent Labs and Imaging studies reviewed. (See chart for details) Patient's labs were consistent with urinary tract infection. We will treat accordingly. [] Dragon Disclaimer Dragon Disclaimer This electronic medical record was generated, in whole or in part, using a voice recognition dictation system. Departure Departure Impression: Primary Impression: UTI (urinary tract infection) Disposition: HOME, SELF-CARE Condition: STABLE Referrals: JESSIE COPELAND Jr, MD (PCP) Scripts Cephalexin (KEFLEX) 500 Mg Capsule 500 MG PO QID for 7 Days, #28 CAP Prov: CHRISTIE VALLECILLO MD 10/08/16 CHRISTIE VALLECILLO MD October 08, 2016 16:38
--- NOTE | 2016-10-08 17:01 | RAD ---
Portable chest, 10/08/2016: History: Fever and weakness Comparison is made to a study from 07/15/2016. The heart size and pulmonary vascularity are normal. No pulmonary infiltrates are seen. There is no evidence of pleural fluid. IMPRESSION: No acute cardiopulmonary abnormality is detected.
[2016-10-08 17:02] LABS: BASO # 0.1 x10^3/uL (0.0-0.2); BASO % 1 % (0-3); EOS % 3 % (0-3); LYMPH # 2.3 x10^3/uL (1.0-4.8); LYMPH % 37 % (24-48); MEAN CORPUSCULAR HEMOGLOBIN 30 pg (25-35); MEAN CORPUSCULAR HGB CONC 34 g/dL (31-37); MEAN CORPUSCULAR VOLUME 87 fL (79-100); MONO % 9 % (0-9); NEUT % 50 % (31-73); PLATELET COUNT 219 x10^3/uL (140-400); RED BLOOD COUNT 4.02 x10^6/uL (3.50-5.40); RED CELL DISTRIBUTION WIDTH 13.6 % (11.5-14.5); WHITE BLOOD COUNT 6.3 x10^3/uL (4.0-11.0)
[2016-10-08 17:09] LABS: CALCIUM 8.9 mg/dL (8.5-10.1); CREATININE 0.9 mg/dL (0.6-1.0); GFR 62.6
[2016-10-08 17:15] LABS: ALBUMIN 3.4 g/dL (3.4-5.0); ALBUMIN/GLOBULIN RATIO 1.1 (1.0-1.7); TOTAL BILIRUBIN 0.3 mg/dL (0.2-1.0); TOTAL PROTEIN 6.5 g/dL (6.4-8.2)
[2016-10-08 17:53] LABS: BILIRUBIN,URINE NEGATIVE (NEG); GLUCOSE,URINE 250 mg/dL (NEG); NITRITE,URINE NEGATIVE (NEG); PROTEIN,URINE NEGATIVE (NEG-TRACE); UROBILINOGEN,URINE 0.2 mg/dL (0.2 mg/dL)
[2016-10-08 18:00] LABS: BACTERIA,URINE MODERATE /HPF (0-FEW); SQUAMOUS EPITHELIAL CELL,UR FEW /LPF; WBC,URINE TNTC /HPF (0-4)
[2016-10-08] MEDS ORDERED: CEPH-264 PO ×2 (18:57→19:05)
[2016-10-08 19:09] VITALS: BP 139/65
== END 2016-10-08 19:08 | disposition home or self-care (01) ==
LOC: ER 16:26
DX: N39.0 Urinary tract infection, site not specified (principal); F41.9 Anxiety disorder, unspecified; E78.00 Pure hypercholesterolemia, unspecified; E11.9 Type 2 diabetes mellitus without complications; I10 Essential (primary) hypertension; E03.9 Hypothyroidism, unspecified; G35 Multiple sclerosis; K21.9 Gastro-esophageal reflux disease without esophagitis
CPT/HCPCS: 36415; 71010; 80053; 81001; 85027; 87040; 87086; 96365; 99285; J0696

== ENCOUNTER 2016-10-20 21:03 | Inpatient (IN) | payer MEDICARE ==
[~2016-10-20] VITALS: Ht 177.8 cm; Wt 108.0 kg
[~2016-10-20 21:03] MED LIST changes: -HYDR-2666 PO; +HYDR-2758 PO
[2016-10-20 21:43] LABS: BASO # 0.1 x10^3/uL (0.0-0.2); BASO % 1 % (0-3); EOS % 2 % (0-3); HEMATOCRIT 34.4 % (36.0-47.0); HEMOGLOBIN 11.4 g/dL (12.0-15.5); LYMPH # 2.9 x10^3/uL (1.0-4.8); LYMPH % 43 % (24-48); MEAN CORPUSCULAR HEMOGLOBIN 30 pg (25-35); MEAN CORPUSCULAR HGB CONC 33 g/dL (31-37); MEAN CORPUSCULAR VOLUME 90 fL (79-100); MONO % 12 % (0-9); NEUT % 42 % (31-73); PLATELET COUNT 217 x10^3/uL (140-400); RED BLOOD COUNT 3.83 x10^6/uL (3.50-5.40); RED CELL DISTRIBUTION WIDTH 13.8 % (11.5-14.5); WHITE BLOOD COUNT 6.8 x10^3/uL (4.0-11.0)
[2016-10-20 21:52] LABS: BILIRUBIN,URINE NEGATIVE (NEG); GLUCOSE,URINE 500 mg/dL (NEG); NITRITE,URINE NEGATIVE (NEG); PH,URINE 5.5; PROTEIN,URINE NEGATIVE (NEG-TRACE); UROBILINOGEN,URINE 0.2 mg/dL (0.2 mg/dL)
[2016-10-20 21:53] LABS: CALCIUM 8.9 mg/dL (8.5-10.1); GFR 55.5; POTASSIUM 3.5 mmol/L (3.5-5.1)
[2016-10-20 21:58] LABS: ALBUMIN 3.3 g/dL (3.4-5.0); TOTAL BILIRUBIN 0.3 mg/dL (0.2-1.0); TOTAL PROTEIN 6.5 g/dL (6.4-8.2)
[2016-10-20 22:04] LABS: BACTERIA,URINE MANY /HPF (0-FEW); RBC,URINE OCC /HPF (0-2); SQUAMOUS EPITHELIAL CELL,UR OCC /LPF; WBC,URINE TNTC /HPF (0-4)
--- NOTE | 2016-10-20 22:10 | PHYS DOC ---
Past Medical History Past Medical History: Anxiety, Diabetes-Type II, GERD, High Cholesterol, Hypertension, Hypothyroid, Other Additional Past Medical Histor: GRAVES, MULTIPLE SCLEROSIS Past Surgical History: , Other Additional Past Surgical Histo: THYROID RADIATION, shoulder surgery Alcohol Use: Rarely Drug Use: None Adult General Chief Complaint Chief Complaint: HYPOGLYCEMIA HPI HPI Patient is a 66 year old F who presents with low blood sugar at home that was in the 40s. Patient states she took her insulin and had supper late because she fell asleep in the chair. Patient got up to go the bathroom and her way back she felt very weak and collapsed. Patient denies hitting her head. Patient denies losing consciousness. Patient states she pressed her life alert and EMS came and checked her blood sugar which was low and gave her glucose tablets and transported her emergency room. She states she had been recently diagnosed with UTI. Patient denies any chest pain shortness of breath. Patient denies any abdominal pain. Patient denies any nausea/vomiting/diarrhea. Patient denies any injury or pain to her extremities. Patient denies any headache or neck pain. Patient has no other complaints. Pertinent exam findings: Patient alert and oriented with no signs of acute trauma Heart was regular rate and rhythm without any murmurs Lungs are clear to auscultation bilaterally without crackles wheeze or rales Abdomen was soft nontender bowel sounds are heard in all 4 quadrants ED course: Patient was seen and evaluated a CBC, CMP, UA, EKG were ordered 2231: Patient reevaluated after her blood sugar was 65 on lab, patient was given Jell-O to eat and discussed lab results the patient and family. Family feels the patient needs to back to rehabilitation because she is to weak. Patient states her family doctor has decreased her insulin intake at home because of her decreased eating. 0005: Discussed CC/HP/PMH with Dr. Felix and recommends admit [] Pertinent results: Glucose 65 MDM: After reviewing the chart, CC/HPI/PMH, physical exam, [lab results], since the patient is having persistent hypoglycemia and is unsteady on her feet and is a fall risk at home will admit her for further evaluation and management. Review of Systems Review of Systems GEN: Low blood sugar, Denies fevers, chills, sweats, HEENT: Denies blurred vision, sore throat CV: Denies chest pain RESP: Denies shortness of air, cough GI: Denies n/v/d NEURO: Denies confusion, dizziness MSK: Denies weakness, joint pain/swelling Current Medications Current Medications Current Medications Medications (Trade) Dose Ordered Sig/Emely Start Time Stop Time Status Last Admin Dose Admin Sodium Chloride 1,000 ml @ 1,000 mls/hr 1X ONCE 10/20/16 22:30 10/20/16 23:29 DC 10/20/16 22:30 1,000 MLS/HR Allergies Allergies Allergies Coded Allergies Type Severity Reaction Last Updated Verified No Known Drug Allergies 06/08/16 No Physical Exam Physical Exam GEN.: No apparent distress. Alert and oriented. HEENT: Head is normocephalic, atraumatic NECK: Supple. LUNGS: CTAB. HEART: RRR, S1, S2 present. Peripheral pulses intact ABDOMEN: Soft, nontender. Positive bowel sounds. EXTREMITIES: Without any cyanosis. NEUROLOGIC: Normal speech, normal tone PSYCHIATRIC: Normal affect, normal mood. SKIN: No ulcerations Current Patient Data Vital Signs Vital Signs Date Time Temp Pulse Resp B/P (MAP) Pulse Ox O2 Delivery O2 Flow Rate FiO2 10/21/16 00:06 76 21 134/58 (83) 98 Room Air 10/20/16 21:12 98.2 98.2 Lab Values Laboratory Tests Test 10/20/16 21:10 10/20/16 21:46 10/20/16 22:43 10/20/16 23:12 White Blood Count 6.8 x10^3/uL (4.0-11.0) Red Blood Count 3.83 x10^6/uL (3.50-5.40) Hemoglobin 11.4 g/dL (12.0-15.5) L Hematocrit 34.4 % (36.0-47.0) L Mean Corpuscular Volume 90 fL (79-100) Mean Corpuscular Hemoglobin 30 pg (25-35) Mean Corpuscular Hemoglobin Concent 33 g/dL (31-37) Red Cell Distribution Width 13.8 % (11.5-14.5) Platelet Count 217 x10^3/uL (140-400) Neutrophils (%) (Auto) 42 % (31-73) Lymphocytes (%) (Auto) 43 % (24-48) Monocytes (%) (Auto) 12 % (0-9) H Eosinophils (%) (Auto) 2 % (0-3) Basophils (%) (Auto) 1 % (0-3) Neutrophils # (Auto) 2.8 x10^3uL (1.8-7.7) Lymphocytes # (Auto) 2.9 x10^3/uL (1.0-4.8) Monocytes # (Auto) 0.8 x10^3/uL (0.0-1.1) Eosinophils # (Auto) 0.1 x10^3/uL (0.0-0.7) Basophils # (Auto) 0.1 x10^3/uL (0.0-0.2) Sodium Level 143 mmol/L (136-145) Potassium Level 3.5 mmol/L (3.5-5.1) Chloride Level 108 mmol/L (98-107) H Carbon Dioxide Level 28 mmol/L (21-32) Anion Gap 7 (6-14) Blood Urea Nitrogen 30 mg/dL (7-20) H Creatinine 1.0 mg/dL (0.6-1.0) Estimated GFR (Cockcroft-Gault) 55.5 BUN/Creatinine Ratio 30 (6-20) H Glucose Level 65 mg/dL (70-99) L Calcium Level 8.9 mg/dL (8.5-10.1) Total Bilirubin 0.3 mg/dL (0.2-1.0) Aspartate Amino Transferase (AST) 14 U/L (15-37) L Alanine Aminotransferase (ALT) 18 U/L (14-59) Alkaline Phosphatase 122 U/L (46-116) H Total Protein 6.5 g/dL (6.4-8.2) Albumin 3.3 g/dL (3.4-5.0) L Albumin/Globulin Ratio 1.0 (1.0-1.7) Urine Collection Type Unknown Urine Color Yellow Urine Clarity Cloudy Urine pH 5.5 Urine Specific [place] 1.020 Urine Protein Negative mg/dL (NEG-TRACE) Urine Glucose (UA) 500 mg/dL (NEG) Urine Ketones (Stick) Negative mg/dL (NEG) Urine Blood Moderate (NEG) Urine Nitrite Negative (NEG) Urine Bilirubin Negative (NEG) Urine Urobilinogen Dipstick 0.2 mg/dL (0.2 mg/dL) Urine Leukocyte Esterase Large (NEG) Urine RBC Occ /HPF (0-2) Urine WBC Tntc /HPF (0-4) Urine Squamous Epithelial Cells Occ /LPF Urine Bacteria Many /HPF (0-FEW) Urine Mucus Slight /LPF Glucose (Fingerstick) 87 mg/dL (70-99) 149 mg/dL (70-99) H Laboratory Tests 10/20/16 21:10 Laboratory Tests 10/20/16 21:10 EKG EKG [] Radiology/Procedures Radiology/Procedures [] Course & Med Decision Making Course & Med Decision Making Pertinent Labs and Imaging studies reviewed. (See chart for details) [] Dragon Disclaimer Dragon Disclaimer This electronic medical record was generated, in whole or in part, using a voice recognition dictation system. Departure Departure Impression: Primary Impression: Hypoglycemia Disposition: ADMITTED INPATIENT Admitting Physician: Sari Felix Condition: STABLE Referrals: JESSIE COPELAND Jr, MD (PCP) JAMES WAGNER DO Oct 20, 2016 22:10
[2016-10-20] MEDS ORDERED: IV NORMAL SALINE 1000ML BAG 1,000 ML IV ONE (22:30)
--- NOTE | 2016-10-20 22:40 | ACF ---
Admission Forms Criteria GENERAL ADMISSION CRITERIA (Place 'X' for any and all applicable criteria): Admission is indicated for ANY ONE of the following: [ ]I. Hemodynamic instability as indicated by ANY ONE of the following(1)(2) (3)(4)(5): [ ]a) Vital sign abnormality not readily corrected by appropriate treatment within 12 to 24 hours indicated by ANY ONE of the following: [ ]i) Hypotension [ ]ii) Symptomatic Tachycardia unresponsive to treatment (eg , analgesia, fluids, sedation as indicated) [ ]iii) Orthostatic vital sign changes unresponsive to treatment (eg, fluids) [ ]b) Vital sign abnormality that is severe indicated by ANY ONE of the following: [ ]i) Inadequate perfusion indicated by ANY ONE of the following: [ ]1) Lactic acidosis (greater than 2 mmol/L) [ ]2) New abnormal capillary refill (greater than 3 seconds) [ ]3) Other metabolic acidosis (arterial pH less than 7.35) not otherwise explained [ ]4) Reduced urine output [ ]5) Altered mental status [ ]6) Myocardial Ischemia [ ]v) Mean arterial pressure[A] less than 60 mm Hg [ ]vi) Mean arterial pressure[A] less than 70 mm Hg after 30 minutes of appropriate treatment (eg, fluid resuscitation) [ ]vii) IV inotropic or vasopressor medication required to maintain adequate blood pressure or perfusion [ ]viii) Sustained heart rate greater than 120 beats per minute in adult or child 6 years or older[B]] [ ]II. Hypertension requiring inpatient treatment as indicated by ANY ONE of the following(6)(7)(8): [ ]a) SBP greater than 220 mm Hg or DBP greater than 120 mm Hg despite treatment [ ]b) SBP greater than 140 mm Hg or DBP greater than 100 mm Hg with evidence of acute end organ damage as indicated by ANY ONE of the following: [ ]i) Encephalopathy [ ]ii) Acute renal failure as indicated by new onset of ANY ONE of the following(9)(10)(11)(12)(13): [ ]1) A 3-fold rise in serum creatinine from baseline [ ]2) Serum creatinine greater than 4 mg/dL ( 354 micromoles/L) with acute rise greater than 0.5 mg/dL (44.2 micromoles/L) [ ]3) Reduction of more than 75% in estimated glomerular filtration rate from baseline [ ]4) Estimated glomerular filtration rate less than 35 mL/min/1.73m2 (0.59 mL/sec/1.73m2) in child up to 18 years of age [ ]5) Cessation of urine output indicated by ALL of the following: [ ]A. Adequate volume status [ ]B. Inadequate urine output as indicated by ANY ONE of the following: [ ]a. Urine output less than 0.3 mL/kg/hr for 24 hours [ ]b. Anuria (urine output less than 0.1 mL/kg/hr) for 12 hours [ ]iii) Aortic dissection [ ]iv) Myocardial ischemia [ ]v) Left ventricular heart failure [ ]vi) Retinal hemorrhage [ ]vii) Other significant finding [ ]c) Hypertension in child requiring inpatient treatment as indicated by ALL of the following(14)(15)(16): [ ]i) Outpatient treatment not effective, not available, or not appropriate [ ]ii) SBP or DBP greater than 95th percentile for age [ ]iii) Evidence of acute end organ damage as indicated by ANY ONE of the following: [ ]1) Altered mental status [ ]2) Acute renal failure as indicated by new onset of ANY ONE of the following(9)(10)(11)(12)(13): [ ]A. A 3-fold rise in serum creatinine from baseline [ ]B. Serum creatinine greater than 4 mg/dL (354 micromoles/L) with acute rise greater than 0.5 mg/dL (44.2 micromoles/L) [ ]C. Reduction of more than 75% in estimated glomerular filtration rate from baseline [ ]D. Estimated glomerular filtration rate less than 35 mL/min/1.73m2 (0.59 mL/sec/1.73m2)in child up to 18 years of age [ ]E. Cessation of urine output indicated by ALL of the following: [ ]a. Adequate volume status [ ]b. Inadequate urine output as indicated by ANY ONE of the following: [ ]1) Urine output less than 0.3 mL/kg/hr for 24 hours [ ]2) Anuria (urine output less than 0.1 mL/kg/hr) for 12 hours [ ]3) Severe headache [ ]4) Visual disturbance [ ]5) Retinal hemorrhage [ ]6) Other significant finding [ ]III. Acute cardiac or peripheral ischemia as indicated by ANY ONE of the following: [ ]a) Acute coronary syndrome(17)(18) [ ]b) Acute peripheral ischemia (eg, pulseless, cool, mottled, or cyanotic extremity)(19) [ ]IV. Cardiac arrhythmias or findings of immediate concern indicated by ANY ONE of the following(20)(21): [ ]a) Heart rhythms that are inherently dangerous or unstable indicated by ANY ONE of the following(22)(23)(24): [ ]i) Resuscitated ventricular fibrillation or cardiac arrest [ ]ii) Ventricular escape rhythm [ ]iii) Sustained ventricular tachycardia (30 seconds or more of ventricular rhythm at greater than 100 beats per minute) [ ]iv) Nonsustained ventricular tachycardia and ANY ONE of the following: [ ]1) Suspected cardiac ischemia as cause or consequence of ventricular tachycardia [ ]2) In setting of acute myocarditis [ ]b) Unstable cardiac conduction defects indicated by ANY ONE of the following(24)(25)(26): [ ]i) Type II second-degree atrioventricular block [ ]ii) Third-degree atrioventricular block [ ]iii) New-onset left bundle branch block with suspected myocardial ischemia [ ]c) Any heart rhythm and ANY ONE of the following(22)(23)(27)(28)( 29): [ ] i) Continuous long-term ECG monitoring needed (eg, initiation of drug requiring monitoring for more than 24 hours) [ ] ii) Patient has automatic implanted cardioverter defibrillator that is repeatedly firing, malfunctioning, or in need of immediate adjustment of settings beyond the scope of ambulatory or observation care. [ ]d) Heart rhythms of concern due to ANY ONE of the following: [ ]i) Hypotension [ ]ii) Respiratory distress [ ]iii) Association with other significant symptoms (eg, bradycardia with syncope or ongoing dizziness, supraventricular tachycardia with chest pain) (27)(28) (30) [ ] V. Severe heart failure as indicated by ANY ONE of the following ( 31)(32): [ ]a) Respiratory distress [ ]b) Hypotension [ ]c) Anasarca (refractory to outpatient therapy) [ ]d) Cardiac arrhythmias of immediate concern [ ]e) Myocardial ischemia [ ]. Respiratory abnormalities, including ANY ONE of the following(33)(34) (35)(36): [ ]a) Respiratory rate greater than 30 breaths per minute unresponsive to treatment [A] [ ]b) New saturation of arterial oxygen less than 90% [ ]c) New partial pressure of carbon dioxide greater than 44 mm Hg ( 5.9 kPa) [ ]d) Supplemental oxygen or respiratory treatments needed that are new or not performable at other levels of care [ ]e) New-onset cyanosis [ ]f) Inability to protect airway [ ]g) Chronic lung disease with severe deterioration (not responsive to emergency and observation care treatment as appropriate) as indicated by ANY ONE of the following(34)(36 ): [ ]i) SaO2 5% below baseline in patient with chronic hypoxemia [ ]ii) New requirement for supplemental oxygen to keep SaO2 at baseline or acceptable level [ ]iii) Required supplemental oxygen performable only in acute inpatient setting [ ]iv) Severe airflow or ventilation abnormalities [ ]v) Previously mobile patient unable to walk between rooms [ ]vi Inability to eat or sleep due to dyspnea [ ]vii) Rapid rate of exacerbation onset [ ]viii) Altered mental status ]VII. Severe airflow or ventilation abnormalities (not responsive to emergency and observation care treatment as appropriate) as indicated by ANY ONE of the following(33)(34)(35)(37): [ ]a) PCO2 greater than 42 mm Hg (5.6 kPa) and pH less than 7.35 (new ) [ ]b) Documented PCO2 increased more than 5 mm Hg (0.7 kPa) from disease baseline [ ]c) Airflow measurements [B] less than 60% of previous best or predicted (eg, peak expiratory flow rate less than 300 L/minute) despite intensive emergent treatment [C] [ ]d) Required respiratory treatments that are performable only in acute inpatient setting [ ]VIII. Impending or actual respiratory arrest ( Also use Respiratory Failure GRG for severe respiratory disease and long-term mechanical ventilation patients) [ ]IX. Neurologic abnormalities, including ANY ONE of the following: [ ]a) New findings that suggest ANY ONE of the following: [ ]i) ASSISTANT BUYER infection(38) [ ]ii) Cerebral bleeding, ischemia, or vasospasm(39)(40) [ ]iii) Increased intracranial pressure, hydrocephalus, or cerebral edema(41)(42)(43) [ ]iv) Spinal cord injury(44) [ ]b) Uncontrolled seizures(45) [ ]c) New-onset coma (eg, Vito coma scale score less than 9) or unexplained abnormal mental status (eg, Vito coma scale score less than 14) [D](41)(46)(47) [ ]X. New-onset severe neurologic findings requiring inpatient care; examples include(42)(48)(49): [ ]a) Papilledema [ ]b) Cerebral edema [ ]c) Mass effect on CT scan [ ]XI. Suspected acute intra-abdominal process with peritoneal signs, abdominal mass, or similar findings (50)(51)(52) [X]XII. Severe physiologic disorder remaining after emergency or observation level care (as appropriate) as indicated by ANY ONE of the following (53): [ ]a) Significant dehydration [ ]b) Diabetic ketoacidosis [ ]c) Hyperglycemic hyperosmolar state (eg, osmolality greater than 320 mOsm/kg (mmol/kg) [X]d) Hypoglycemia [ ]e) Other (new) acid-base disorder with pH less than 7.35 or greater than 7.5(54) [ ]f) Thyroid storm (55) [ ]g) Myxedema coma (55) [ ]XIII. Abdominal abnormalities with ANY ONE of the following(56)(57): [ ]a) Absent bowel sounds with complete ileus [ ]b) Signs of intestinal obstruction or peritonitis [E] [ ]c) Nausea and vomiting that cannot be controlled with outpatient or observation care [ ]XIV. Acute renal failure as indicated by new onset of ANY ONE of the following(9)(10)(11)(12)(13): [ ]a) A 3-fold rise in serum creatinine from baseline [ ]b) Serum creatinine greater than 4 mg/dL (354 micromoles/L) with acute rise greater than 0.5 mg/dL (44.2 micromoles/L) [ ]c) Reduction of more than 75% in estimated glomerular filtration rate from baseline [ ]d) Estimated glomerular filtration rate less than 35 mL/min/ 1.73m2 (0.59 mL/sec/1.73m2) in child up to 18 years of age [ ]e) Cessation of urine output indicated by ALL of the following: [ ]i) Adequate volume status [ ]ii) Inadequate urine output as indicated by ANY ONE of the following: [ ]1) Urine output less than 0.3 mL/kg/hr for 24 hours [ ]2) Anuria (urine output less than 0.1 mL/kg/hr) for 12 hours [ ]XV. Significant uremic complications as indicated by ANY ONE of the following(58)(59)(60): [ ]a) Outpatient therapy is ineffective or not feasible for ANY ONE of the following: [ ]i) Severe heart failure [ ]ii) Severehypertension [ ]iii) Pleural effusion [ ]iv) Pericarditis or pericardial effusion [ ]b) Cardiac arrhythmias of immediate concern [ ]c) Intractable nausea or vomiting [ ]d) Recurrent seizures [ ]e) Encephalopathy [ ]f) Bleeding abnormalities (eg, platelet dysfunction) with active (eg, gastrointestinal) bleeding [ ]g) Dialysis indicated before long-term access or ambulatory arrangements can be made [ ]h) Significant metabolic or electrolyte abnormalities (eg, severe acidosis or hyperkalemia) [ ]XVI. High fever or other high-risk infection situation as indicated by ANY ONE of the following(61)(62)(63)(64): [ ]a) Outpatient and observation care antimicrobial treatment unavailable, not effective, or not appropriate [ ]b) Documented bacteremia [ ]c) Temperature greater than 40.5 degrees C (104.9 degrees F) ( oral) [ ]d) Temperature greater than 39.5 degrees C (103.1 degrees F) ( oral) or less than 36 degrees C (96.8 degrees F) (rectal) that does not respond to e treatment and observation care [ ] XVII. Temperature less than 95 degrees F (35 degrees C)(rectal)(65) [ ] XVIII. Severe nutritional abnormalities as indicated by ALL of the following (66)(67): [ ]a) Inability to tolerate or establish sufficient oral or other enteral nutrition in outpatient setting [ ]b) Parenteral nutrition regimen need that must be implemented on inpatient basis [ ] XIX. Severe electrolyte abnormalities indicated by ALL of the following(68) (69)(70): [ ]a) Electrolytes and associated findings are not as expected for patient baseline or acceptable treatment effects. [ ]b) Severe abnormalities indicated by ANY ONE of the following: [ ]i) Sodium less than 130 mEq/L (mmol/L) (new) [ ]ii)Sodium less than 135 mEq/L (mmol/L) with ANY ONE of the following: [ ]1) Uncorrectable (to near normal or chronic baseline) after trial of outpatient and emergency treatment [ ]2) Altered mental status [ ]3) Seizures [ ]4) Severe medical etiology requiring inpatient management (eg, heart failure, hypovolemia) [ ]iii) Sodium greater than 155 mEq/L (mmol/L) [ ]iv) Sodium greater than 150 mEq/L (mmol/L) with ANY ONE of the following: [ ]1) Uncorrectable (to near normal or chronic baseline) with outpatient and emergency treatment [ ]2) Altered mental status [ ]3) Seizures [ ]4) Severe medical etiology (eg, hypovolemia, diabetes insipidus) [ ]v) Potassium less than 2.5 mEq/L (mmol/L) despite outpatient and emergency treatment [ ]vi) Potassium less than 3 mEq/L (mmol/L) with ANY ONE of the following: [ ]1) Weakness [ ]2) Cardiac abnormality (eg, arrhythmia, conduction disturbance) [ ]3) Cardiac ischemia [ ]4) Ileus [ ]5) Ongoing medical cause requiring inpatient management (eg, acute renal wasting or SIADH) [ ]6) Other severe symptoms [ ]vii) Potassium greater than 6.5 mEq/L (mmol/L) [ ]viii) Potassium greater than 5 mEq/L (mmol/L) with ANY ONE of the following: [ ]1) Uncorrectable (to near normal or chronic baseline) with outpatient and emergency treatment [ ]2) Severe ECG findings [F] [ ]3) Acute worsening of renal failure (creatinine greater than 2.5 mg/dL (221 micromoles/L) or significant elevation for age and size) [ ]4) Severe weakness [ ]5) Severe medical etiology (eg, hemolysis, infection, drug overdose) [ ]ix) Calcium less than 7 mg/dL (1.75 mmol/L) despite outpatient and emergency treatment (72) [ ]x) Calcium less than 8 mg/dL (2 mmol/L) with significant symptoms or findings; examples include(72): [ ]1) Altered mental status [ ]2) Muscle spasms [ ]3) Seizures [ ]4) Breathing difficulty [ ]5) Cardiac abnormality (eg, arrhythmia or conduction disturbance) [ ]xi) Calcium greater than 14 mg/dL (3.5 mmol/L)(72) [ ]xii) Calcium greater than 12 mg/dL (3 mmol/L) with ANY ONE of the following(72): [ ]1) Uncorrectable (to near normal or chronic baseline) with outpatient and emergency treatment [ ]2) Significant dehydration or hypovolemia as indicated by ALL of the following(70)(73)(74): [ ]A. Not resolved with initial treatments [ ]B. Clinically significant dehydration as indicated by ANY ONE of the following: [ ]a. Vomiting refractory to outpatient treatment (ie, precluding oral rehydration) [ ]b. Inability to drink [ ]c. Hypernatremia or other electrolyte abnormality unable to be corrected with outpatient and emergency treatment [ ]d. Failure to remain hydrated with outpatient therapy [ ]e. Reduced urine output [ ]f. Hypotension [ ]g. Serious cause for dehydration requiring acute hospitalization (eg, bowel obstruction, increased intracranial pressure, infectious cause) [ ]h. Child with ANY ONE of the following(75): [ ]1) Severe abdominal tenderness [ ]2) Adequate care not available at home [ ]3) Severe dehydration ( greater than 9% loss of body weight) [ ]4) Significant symptoms or findings; examples include: [ ]A. Altered mental status [ ]B. Cardiac abnormality (eg, arrhythmia, conduction disturbance) [ ]C. Malignant etiology requiring inpatient treatment [ ]xiii) Phosphorus less than 1 mg/dL (0.32 mmol/L) [ ]xiv) Phosphorus less than 1.5 mg/dL (0.48 mmol/L) with ANY ONE of the following: [ ]1) Patient unresponsive to outpatient and emergency treatment [ ]2) Significant symptoms or findings; examples include: [ ]A. Weakness [ ]B. Altered mental status [ ]C. Breathing difficulty [ ]D. Seizures [ ]E. Rhabdomyolysis [ ]xv) Phosphorus greater than 10 mg/dL (3.2 mmol/L) [ ]xvi) Phosphorus greater than 4.5 mg/dL (1.45 mmol/L) (new) with ANY ONE of the following: [ ]1) Severe medical etiology (eg, crush injury, acute renal failure) [ ]2) Associated hypocalcemia with significant findings; examples include: [ ]A. Neurologic symptoms [ ]B. Altered mental status [ ]C. Muscle spasms [ ]D. Seizures [ ]E. Breathing difficulty [ ]F. Cardiac abnormality (eg, arrhythmia, conduction disturbance) [ ]xvii) Magnesium less than 1 mg/dL (0.41 mmol/L) [ ]xviii) Magnesium less than 1.5 mg/dL (0.62 mmol/L) with ANY ONE of the following: [ ]1) Patient unresponsive to outpatient and emergency treatment [ ]2) Associated hypocalcemia with significant findings; examples include: [ ]A. Altered mental status [ ]B. Muscle spasms [ ]C. Seizures [ ]D. Breathing difficulty [ ]E. Cardiac abnormality (eg, arrhythmia , conduction disturbance) [ ]3) Associated hypokalemia (potassium less than 3 mEq/L (mmol/L)) with risk of arrhythmia [ ]xix) Magnesium greater than 4 mEq/L (2 mmol/L) [ ]xx) Magnesium greater than 2.5 mEq/L (1.25 mmol/L) with significant symptoms or findings; examples include: [ ]1) Weakness [ ]2) Altered mental status [ ]3) Cardiac abnormality (eg, arrhythmia, conduction disturbance) [ ]4) Breathing difficulty [ ]5) Severe medical etiology (eg, renal failure, hypovolemia) [ ]xxi) Uric acid greater than 20 mg/dL (1190 micromoles/L)(76) [ ]xxii) Uric acid greater than 8 mg/dL (476 micromoles/L) with significant symptoms or findings of tumor lysis syndrome; examples include(76): [ ]1) Creatinine greater than 1.5 times upper limit of normal [ ]2) Cardiac abnormality (eg, arrhythmia, conduction disturbance) [ ]3) Seizure [ ]XX. Acute blood loss causing significant abnormality as indicated by ANY ONE of the following(77)(78): [ ]a) Hemoglobin less than 10 g/dL (100 g/L) (not baseline) [ ]b) Hematocrit less than 30% (0.30) (not baseline) [ ]c) Repeat hematocrit decreased more than 2% (0.02) [ ]d) Uncontrolled bleeding [ ]XXI. Severe anemia indicated by ANY ONE of the following(78)(79): [ ]a) Altered mental status [ ]b) Chest pain [ ]c) Exertional dyspnea [ ]d) Syncope [ ]e) Other findings suggesting inadequate perfusion [ ]f) Treatment with transfusion or volume replacement is ineffective at resolving ANY ONE of the following [G]: [ ]i) Tachycardia for age [ ]ii) Orthostatic vital sign changes as indicated by ANY ONE of the following(80): [ ]1) Fall in SBP of 20 mm Hg or more 1 to 3 minutes after patient sits or stands from recumbent position [ ]2) Fall in DBP of 10 mm Hg or more 1 to 3 minutes after patient sits or stands from recumbent position [ ]XXII. High-risk low platelet count as indicated by ANY ONE of the following( 81)(82): [ ]a) Severe or life-threatening bleeding (eg, intracranial, major gastrointestinal, or extensive mucosal bleeding), with any reduced platelet count [ ]b) Platelet count less than 20,000/mm3 (20 x109/L) with any active bleeding [ ]c) Platelet count less than 10,000/mm3 (10 x109/L) with minor purpura or petechiae [ ]d) Platelet count less than 5000/mm3 (5 x109/L) [ ]e) Low platelet count with hemolytic anemia [ ]XXIII. Disseminated intravascular coagulation(77)(83) [ ]XXIV. Severe adverse drug or systemic toxin reaction requiring inpatient treatment; examples include(84)(85): [ ]a) Serotonin syndrome(86) [ ]b) Neuroleptic malignant syndrome(86) [ ]c) Cholinergic syndrome with severe symptoms (eg, bronchorrhea, weakness, mental status changes, seizures) [ ]d) Sympathetic syndrome with severe symptoms (eg, seizures, mental status changes, cardiac dysrhythmias) [ ]e) Anticholinergic syndrome [ ]XXV. Severe pain requiring acute inpatient management as indicated by ALL of the following (87)(88)(89): [ ]a) Continuous or frequent (eg, every 2 to 4 hours) parenteral analgesics required [H] [ ]b) Rapid improvement expected from treatment or acute intervention (eg, surgery, anesthesia procedure) [ ]XXVI.Severe behavioral health issues judged unmanageable at a lower level of care (eg, residential) in a patient who is ANY ONE of the following(91) [ ]a) Acutely suicidal [ ]b) A danger to self (eg, self-mutilating or suicidal behavior) [ ]c) A danger to others (eg, assaultive or homicidal behavior) [ ]d) Incapacitated because of grave disability (eg, inability to provide for self at lower level of care) (92) [ ]XXVII. Inpatient monitoring needed; examples include(1)(3)(87)(93)(94)(95)(96 ): [ ]a) Vital signs, neurologic signs, or vascular checks more frequently than every 4 hours [ ]b) Cardiac or respiratory monitoring beyond the scope (eg, over 24 hours) of observation care [ ]c) Pulmonary artery catheter monitoring [ ]d) Suspected compartment syndrome(97) (98) [ ]e) Cerebral bleeding, hydrocephalus, or vasospasm monitoring [ ]f) Increased intracranial pressure or cerebral edema monitoring [ ]g) monitoring [ ]XXVIII. Treatment requiring inpatient care; examples include: [ ]a) IV fluid to replace significant ongoing losses (greater than 3 L/m2 per day)(53) [ ]b) High concentration oxygen (greater than 40%)(33)(99)(100) [ ]c) Frequent respiratory therapy (more frequently than every 4 hours) to maintain airflow rates greater than 60% of baseline(33)(99)(100) [ ]d) Epidural analgesia(87) [ ]e) IV anticoagulation, vasoactive, or antiarrhythmic medication(19 )(23) [ ]f) Acute thrombolytics (generally require 24 hours of observation )(101)(102) [ ]XXIX. Emergency procedures needed; examples include: [ ]a) Emergency inpatient surgery [ ]b) Temporary pacemaker placement(103) [ ]c) Chest tube placement with active evacuation (eg, suction, drainage)(104) [ ]d) Emergent cardioversion(105) [ ]e) Emergent cardiac or vascular procedures (eg, cardiac catheterization, angioplasty) (17)(18) [ ]f) Emergent dialysis access placement and institution(10)(106) [ ]g) Emergent pericardiocentesis(107) [ ]h) Emergent plasmapheresis or leukapheresis(83) [ ]i) Emergent tracheostomy The original [employer] content created by [employer] has been revised. The portions of the content which have been revised are identified through the use of italic text or in bold, and [email or web address] has neither reviewed nor approved the modified material. All other unmodified content is copyright [employer]. Please see references footnoted in the original [employer] edition 2016 Admission Criteria Met?: Yes FILOMENA BURKS Oct 20, 2016 22:40
[2016-10-21] MEDS ORDERED: ONDANSETRON PF 4 MG/2 ML VIAL. IV PRN (00:30)
[2016-10-21] MEDS ORDERED: MORPHINE SULFATE 4 MG/ML DISP.SYRIN. IV PRN (00:30)
[2016-10-21] MEDS ORDERED: ACETAMINOPHEN 325 MG TABLET. PO PRN (00:30)
[2016-10-21 03:00] VITALS: BP 150/70
[2016-10-21] MEDS ORDERED: DEXTROSE 50% 25 GM / 50ML DISP.SYRIN. IV PRN (05:30)
[2016-10-21 07:00] VITALS: BP 132/50
--- NOTE | 2016-10-21 07:07 | EKG ---
[facility] [address] [place] [address] Test Date: 2016-10-20 Test Time: 21:12:41 Pat Name: ISAIAS LAL Department: Room: [facility] Gender: F Ticket Sales Supervisor: : [id number] Requested By: JAMES WAGNER Order Number: [id number] Reading MD: Bryanna Charles Measurements Intervals [place] Rate: 78 P: [place]: QRS: -14 QRSD: 80 T: 36 QT: 382 QTc: 439 Interpretive Statements SINUS RHYTHM LEFTWARD AXIS QRS(T) CONTOUR ABNORMALITY CONSIDER ANTEROSEPTAL MYOCARDIAL DAMAGE Electronically Signed On 10-24-2016 18:31:35 CDT by Bryanna Charles
[2016-10-21 10:54] VITALS: BP 141/49
[2016-10-21] MEDS ORDERED: MECLIZINE HCL 12.5 MG TABLET. PO PRN (12:15)
[2016-10-21] MEDS: OXYBUTYNIN CHLORIDE 5 MG TABLET PO SCH ×2 (12:21→20:47)
[2016-10-21] MEDS: PANTOPRAZOLE 40 MG TABLET.DR. PO SCH (12:21)
[2016-10-21] MEDS: amLODIPine BESYLATE 5 MG TABLET PO SCH (12:22)
[2016-10-21] MEDS: clonazePAM 0.5 MG TABLET PO PRN (12:22)
[2016-10-21] MEDS: LOSARTAN POTASSIUM 50 MG TABLET. PO SCH (12:23)
[2016-10-21] MEDS: INSULIN ASPART 300 UNITS/3 ML INSULN.PEN SQ SCH ×2 (12:30→17:49)
[2016-10-21 13:00] VITALS: BP 130/46
[2016-10-21] MEDS ORDERED: ATORVASTATIN CALCIUM 10 MG TABLET. PO SCH (13:00)
[2016-10-21] MEDS: LEVOTHYROXINE 125 MCG TABLET PO SCH (13:58)
[2016-10-21] MEDS: INDAPAMIDE 2.5 MG TABLET PO SCH (13:58)
[2016-10-21 19:00] VITALS: BP 122/61
[2016-10-21] MEDS: HYDROcodone/APAP 5/325MG 1 TAB TABLET PO PRN (20:15)
[2016-10-21] MEDS: ATORVASTATIN CALCIUM 10 MG TABLET. PO SCH (20:47)
[2016-10-21] MEDS ORDERED: INSULIN DETEMIR 300 UNITS/3 ML INSULN.PEN. SQ SCH (21:00)
[2016-10-21] MEDS ORDERED: COPAXONE 40 MG SQ ONE (21:00)
[2016-10-21 23:00] VITALS: BP 136/65
[2016-10-22 03:10] VITALS: BP 144/61
[2016-10-22 05:09] LABS: BASO % 1 % (0-3); EOS % 3 % (0-3); HEMATOCRIT 33.8 % (36.0-47.0); HEMOGLOBIN 11.3 g/dL (12.0-15.5); LYMPH # 2.4 x10^3/uL (1.0-4.8); LYMPH % 33 % (24-48); MEAN CORPUSCULAR HEMOGLOBIN 30 pg (25-35); MEAN CORPUSCULAR HGB CONC 33 g/dL (31-37); MEAN CORPUSCULAR VOLUME 90 fL (79-100); MONO % 11 % (0-9); NEUT % 53 % (31-73); PLATELET COUNT 190 x10^3/uL (140-400); RED BLOOD COUNT 3.77 x10^6/uL (3.50-5.40); RED CELL DISTRIBUTION WIDTH 13.4 % (11.5-14.5); WHITE BLOOD COUNT 7.1 x10^3/uL (4.0-11.0)
[2016-10-22 05:31] LABS: CALCIUM 8.7 mg/dL (8.5-10.1); GFR 55.5; POTASSIUM 3.8 mmol/L (3.5-5.1)
[2016-10-22 07:00] VITALS: BP 142/58
[2016-10-22] MEDS: OXYBUTYNIN CHLORIDE 5 MG TABLET PO SCH ×2 (08:20→20:40)
[2016-10-22] MEDS: amLODIPine BESYLATE 5 MG TABLET PO SCH (08:20)
[2016-10-22] MEDS: INDAPAMIDE 2.5 MG TABLET PO SCH (08:20)
[2016-10-22] MEDS: LEVOTHYROXINE 125 MCG TABLET PO SCH (08:20)
[2016-10-22] MEDS: PANTOPRAZOLE 40 MG TABLET.DR. PO SCH (08:21)
[2016-10-22] MEDS: LOSARTAN POTASSIUM 50 MG TABLET. PO SCH (08:21)
[2016-10-22] MEDS: INSULIN ASPART 300 UNITS/3 ML INSULN.PEN SQ SCH ×3 (08:25→17:15)
[2016-10-22 11:00] VITALS: BP 121/41
[2016-10-22 14:34] VITALS: BP 115/41
[2016-10-22] MEDS ORDERED: GLAT40SY SQ (16:03)
--- NOTE | 2016-10-22 17:27 | PDOC ---
PROGRESS NOTES Chief Complaint Chief Complaint Hypoglycemia ASSESSMENT AND PLAN: 1. Hypoglycemia: resolved 2. DM2: poorly controlled on her home regimen. will increase levemir to 12, tighten insulin sliding scale 3. UTI: E.coli, pansensitive. ceftriax 1g x1 4. Debility: had home PT, but by eval here, deemed to benefit from rehab. SW consult 5. Prophylaxis: lovenox History of Present Illness History of Present Illness feels ok, but worried about her high blood sugars Vitals Vitals Vital Signs Date Time Temp Pulse Resp B/P (MAP) Pulse Ox O2 Delivery O2 Flow Rate FiO2 10/22/16 14:34 97.7 73 16 115/41 (65) 95 Room Air 97.7 10/22/16 11:00 66.0 Physical Exam General: Alert, Oriented X3, Cooperative, No acute distress Heart: Regular rate Lungs: Clear Abdomen: Normal bowel sounds Extremities: No clubbing, No edema Skin: No rashes Labs LABS Laboratory Tests Test 10/21/16 21:22 10/22/16 03:55 10/22/16 07:34 10/22/16 11:49 Glucose (Fingerstick) 270 mg/dL (70-99) 252 mg/dL (70-99) 358 mg/dL (70-99) White Blood Count 7.1 x10^3/uL (4.0-11.0) Red Blood Count 3.77 x10^6/uL (3.50-5.40) Hemoglobin 11.3 g/dL (12.0-15.5) Hematocrit 33.8 % (36.0-47.0) Mean Corpuscular Volume 90 fL (79-100) Mean Corpuscular Hemoglobin 30 pg (25-35) Mean Corpuscular Hemoglobin Concent 33 g/dL (31-37) Red Cell Distribution Width 13.4 % (11.5-14.5) Platelet Count 190 x10^3/uL (140-400) Neutrophils (%) (Auto) 53 % (31-73) Lymphocytes (%) (Auto) 33 % (24-48) Monocytes (%) (Auto) 11 % (0-9) Eosinophils (%) (Auto) 3 % (0-3) Basophils (%) (Auto) 1 % (0-3) Neutrophils # (Auto) 3.8 x10^3uL (1.8-7.7) Lymphocytes # (Auto) 2.4 x10^3/uL (1.0-4.8) Monocytes # (Auto) 0.8 x10^3/uL (0.0-1.1) Eosinophils # (Auto) 0.2 x10^3/uL (0.0-0.7) Basophils # (Auto) 0.0 x10^3/uL (0.0-0.2) Sodium Level 140 mmol/L (136-145) Potassium Level 3.8 mmol/L (3.5-5.1) Chloride Level 104 mmol/L (98-107) Carbon Dioxide Level 27 mmol/L (21-32) Anion Gap 9 (6-14) Blood Urea Nitrogen 22 mg/dL (7-20) Creatinine 1.0 mg/dL (0.6-1.0) Estimated GFR (Cockcroft-Gault) 55.5 Glucose Level 325 mg/dL (70-99) Calcium Level 8.7 mg/dL (8.5-10.1) Test 10/22/16 13:33 10/22/16 16:27 Glucose (Fingerstick) 295 mg/dL (70-99) 228 mg/dL (70-99) XU NAIK MD Oct 22, 2016 17:27
[2016-10-22] MEDS ORDERED: DEXTROSE 50% 25 GM / 50ML DISP.SYRIN. IV PRN (17:30)
--- NOTE | 2016-10-22 18:53 | HP ---
ADMIT DATE: CHIEF COMPLAINT: Hypoglycemia. HISTORY OF PRESENT ILLNESS: The patient is a 66-year-old obese woman with past medical history of diabetes mellitus, who found herself at home with blood sugars of 40. She is on insulin detemir as well as regular insulin by sliding scale and recently have to half her dose. We do secondary to recurrent hypoglycemia. She relates that she took her evening insulin but ate supper late , because she had fallen asleep in the chair and got up to go to the bathroom and collapsed there. She did hit her head, but without any loss of consciousness. She pressed her Life Alert button and EMS came and checked out and brought her into the hospital. In the Emergency Room, blood sugar was found in the 40s and 50s. After multiple amps of glucose as well as orange juice and other high caloric fluids, blood sugars recovered minimally to 70s and she was therefore admitted for further monitoring and care. PAST MEDICAL HISTORY: Diabetes mellitus, hypertension, hypercholesterolemia, hypothyroidism, GERD, history of Grave disease, status post radioactive iodine treatment and multiple sclerosis. PAST SURGICAL HISTORY: She is status post shoulder surgery. FAMILY HISTORY: Positive for diabetes in her sister. SOCIAL HISTORY: Retired [employer]. No toxic habits. ALLERGIES: No known drug allergies. MEDICATIONS: MAR reconciled with home medications. REVIEW OF SYSTEMS: The patient relates that she feels much better currently. Denies any headaches, any fevers, chills, nausea or vomiting. She is under the impression that she has a UTI, although she is asymptomatic without any dysuria or hematuria. Rest of organ system review is negative. PHYSICAL EXAMINATION: VITAL SIGNS: Show a blood pressure of 141/49, pulse at 81, respiratory rate at 18. She is afebrile. GENERAL: This is a morbidly obese, woman, alert and oriented, in no acute distress. HEENT: Shows no scleral icterus. NECK: Supple, without any lymphadenopathy. LUNGS: Clear to auscultation bilaterally. HEART: Regular rate and rhythm. ABDOMEN: Has positive bowel sounds, soft, nontender, without any organomegaly or masses. EXTREMITIES: Show no edema. SKIN: Warm, soft and dry without any rash. NEUROLOGIC: She appears grossly intact. LABORATORY DATA: CBC with a WBC of 6.8, hemoglobin 11.4, platelets of 217. Chemistries with a BUN and creatinine of 30 and 1.0. Electrolytes essentially within normal limits. Glucose at 65. LFTs within normal, albumin at 3.3. Urine with many bacteria, TNTC wbc. ASSESSMENT AND PLAN: The patient is a 66-year-old woman with diabetes mellitus, insulin dependent. She presented with hypoglycemia. Although initial values were fairly low, blood sugars this morning by fingerstick 149. She did not receive her p.m. Levemir due to hypoglycemia. We will cover her with insulin sliding scale for the time being and monitor. We will continue all her other home medications including blood pressure medications. The Copaxone for her multiple sclerosis is not available here, but she knows this and has her own supply. Her Graves disease has been treated. Interestingly enough, both of her daughters had same and had required radioactive iodine x 2 each. We will obtain TSH here. Continue her levothyroxine for the time being. XU NAIK MD DR: UR/nts JOB#: [id number] / [id number] JESSIE Ruiz MD MTDD
[2016-10-22 19:00] VITALS: BP 119/60
[2016-10-22] MEDS: clonazePAM 0.5 MG TABLET PO PRN (20:39)
[2016-10-22] MEDS: HYDROcodone/APAP 5/325MG 1 TAB TABLET PO PRN (20:39)
[2016-10-22] MEDS: ENOXAPARIN 40 MG/0.4 ML SYRINGE. SQ SCH (20:40)
[2016-10-22] MEDS: ATORVASTATIN CALCIUM 10 MG TABLET. PO SCH (20:40)
[2016-10-22] MEDS: INSULIN DETEMIR 300 UNITS/3 ML INSULN.PEN. SQ SCH (20:44)
[2016-10-22 23:00] VITALS: BP 143/65
[2016-10-23 03:00] VITALS: BP 135/60
[2016-10-23 07:00] VITALS: BP 150/60
[2016-10-23] MEDS: PANTOPRAZOLE 40 MG TABLET.DR. PO SCH (08:49)
[2016-10-23] MEDS: LOSARTAN POTASSIUM 50 MG TABLET. PO SCH (08:50)
[2016-10-23] MEDS: OXYBUTYNIN CHLORIDE 5 MG TABLET PO SCH ×2 (08:50→20:54)
[2016-10-23] MEDS: LEVOTHYROXINE 125 MCG TABLET PO SCH (08:50)
[2016-10-23] MEDS: INDAPAMIDE 2.5 MG TABLET PO SCH (08:51)
[2016-10-23] MEDS: amLODIPine BESYLATE 5 MG TABLET PO SCH (08:52)
[2016-10-23] MEDS: INSULIN ASPART 300 UNITS/3 ML INSULN.PEN SQ SCH ×3 (09:01→17:19)
[2016-10-23 11:00] VITALS: BP 130/54
[2016-10-23] MEDS: HYDROcodone/APAP 5/325MG 1 TAB TABLET PO PRN ×2 (12:03→20:54)
--- NOTE | 2016-10-23 14:12 | PDOC ---
PROGRESS NOTES Chief Complaint Chief Complaint Hypoglycemia ASSESSMENT AND PLAN: 1. Hypoglycemia: resolved 2. DM2: poorly controlled on her home regimen. better controlled on adjusted regimen 3. UTI: E.coli, pansensitive. ceftriax 1g x1 4. Debility: had home PT, but by eval here, deemed to benefit from rehab. SW consult 5. Prophylaxis: lovenox 6. Dispo: to SNF in AM History of Present Illness History of Present Illness feels fine, no new c/o Vitals Vitals Vital Signs Date Time Temp Pulse Resp B/P (MAP) Pulse Ox O2 Delivery O2 Flow Rate FiO2 10/23/16 12:03 20 96 Room Air 10/23/16 11:00 97.6 84 130/54 (79) 97.6 10/22/16 21:39 66.0 Physical Exam General: Alert, Oriented X3, Cooperative, No acute distress Heart: Regular rate Lungs: Clear Abdomen: Normal bowel sounds Extremities: No clubbing, No edema Skin: No rashes Labs LABS Laboratory Tests Test 10/22/16 16:27 10/22/16 20:26 10/23/16 07:15 10/23/16 11:05 Glucose (Fingerstick) 228 mg/dL (70-99) 186 mg/dL (70-99) 254 mg/dL (70-99) 165 mg/dL (70-99) XU NAIK MD Oct 23, 2016 14:12
[2016-10-23 15:00] VITALS: BP 112/46
[2016-10-23] MEDS ORDERED: INSU100I27 SQ (15:27)
[2016-10-23] MEDS ORDERED: INSU100I17 SQ (15:27)
[2016-10-23] MEDS ORDERED: COPAXONE 40 MG SQ SCH (16:00)
[2016-10-23 19:42] VITALS: BP 135/41
[2016-10-23] MEDS: clonazePAM 0.5 MG TABLET PO PRN (20:54)
[2016-10-23] MEDS: ATORVASTATIN CALCIUM 10 MG TABLET. PO SCH (20:54)
[2016-10-23] MEDS: ENOXAPARIN 40 MG/0.4 ML SYRINGE. SQ SCH (20:55)
[2016-10-23] MEDS: INSULIN DETEMIR 300 UNITS/3 ML INSULN.PEN. SQ SCH (21:04)
[2016-10-23 23:07] VITALS: BP 107/43
[2016-10-24 03:01] VITALS: BP 136/49
[2016-10-24 07:00] VITALS: BP 140/55
[2016-10-24] MEDS: INDAPAMIDE 2.5 MG TABLET PO SCH (08:24)
[2016-10-24] MEDS: PANTOPRAZOLE 40 MG TABLET.DR. PO SCH (08:24)
[2016-10-24] MEDS: LEVOTHYROXINE 125 MCG TABLET PO SCH (08:24)
[2016-10-24] MEDS: OXYBUTYNIN CHLORIDE 5 MG TABLET PO SCH (08:24)
[2016-10-24] MEDS: LOSARTAN POTASSIUM 50 MG TABLET. PO SCH (08:25)
[2016-10-24 08:26] VITALS: BP 140/55
[2016-10-24] MEDS: amLODIPine BESYLATE 5 MG TABLET PO SCH (08:26)
[2016-10-24] MEDS: INSULIN ASPART 300 UNITS/3 ML INSULN.PEN SQ SCH (08:36)
[2016-10-24] MEDS: HYDROcodone/APAP 5/325MG 1 TAB TABLET PO PRN (10:09)
== END 2016-10-24 11:35 | DRG 638 ==
LOC: ER 21:03 → 5 NORTH 10-21 00:07
PROVIDERS: ADMIT Internal Medicine; ATTEND Internal Medicine
DX: E11.649 Type 2 diabetes mellitus with hypoglycemia without coma (principal); N39.0 Urinary tract infection, site not specified; E03.9 Hypothyroidism, unspecified; E78.00 Pure hypercholesterolemia, unspecified; G35 Multiple sclerosis; I10 Essential (primary) hypertension; K21.9 Gastro-esophageal reflux disease without esophagitis; B96.20 Unspecified Escherichia coli [E. coli] as the cause of diseases classified elsewhere; E11.65 Type 2 diabetes mellitus with hyperglycemia; F41.9 Anxiety disorder, unspecified; E66.01 Morbid (severe) obesity due to excess calories; Z83.3 Family history of diabetes mellitus; Z79.4 Long term (current) use of insulin; Z91.81 History of falling; Z68.34 Body mass index [BMI] 34.0-34.9, adult; Z79.899 Other long term (current) drug therapy; Z79.1 Long term (current) use of non-steroidal anti-inflammatories (NSAID)
CPT/HCPCS: 36415; 80048; 80053; 81001; 82962; 85027; 87086; 87186; 93005; 96360; 96361; J0696; J1650; J1815; J7030; 97530; 97535; 99285-25

== ENCOUNTER 2017-01-21 02:13 | Emergency (ER) | payer MEDICARE ==
[2017-01-21] MEDS ORDERED: HYDROcodone/APAP 7.5/325MG 1 TAB TABLET PO ONE (03:00)
[2017-01-21 03:33] VITALS: BP 141/65
--- NOTE | 2017-01-21 03:41 | PHYS DOC ---
Past Medical History Past Medical History: Anxiety, Diabetes-Type II, GERD, High Cholesterol, Hypertension, Hypothyroid, Other Additional Past Medical Histor: GRAVES, MULTIPLE SCLEROSIS Past Surgical History: , Other Additional Past Surgical Histo: THYROID RADIATION, shoulder surgery Alcohol Use: None Drug Use: None Adult General Chief Complaint Chief Complaint: MECHANICAL FALL HPI HPI Patient is a 66 year old female with history of multiple sclerosis who presents with accidental fall due to loss of balance with right wrist injury. Patient with tenderness swelling of right proximal wrist. There is no obvious gross deformity. Patient has pain on full range of motion. Patient also noted to have abrasion to forehead and subconjunctival hemorrhage. Denies headache, change of vision. Patient is not on anticoagulation therapy. Patient states she has had frequent falls and is followed multiple times in the past few weeks. Patient does live by herself. Denies any acute medical symptoms or complaints conjunctiva leading to falls. She does have a medical alert bracelet and frequently contacts EMS. Patient's PCP is Dr. Odell Montalvo. Review of Systems Review of Systems Review of symptoms as per history of present illness. All other review symptoms are negative. Current Medications Current Medications Current Medications Medications (Trade) Dose Ordered Sig/Emely Start Time Stop Time Status Last Admin Dose Admin Acetaminophen/ Hydrocodone Bitart (Lortab 7.5/325) 1 tab 1X ONCE 01/21/17 03:00 01/21/17 03:18 DC 01/21/17 03:11 1 TAB Allergies Allergies Allergies Coded Allergies Type Severity Reaction Last Updated Verified No Known Drug Allergies 06/08/16 No Physical Exam Physical Exam Constitutional: Well developed, well nourished, no acute distress, non-toxic appearance. [] HENT: Normocephalic, right forehead abrasion, bilateral external ears normal, oropharynx moist, no oral exudates, nose normal. [] Eyes: PERRL, left eye subconjunctival hemorrhage, no discharge. Wears eyeglasses. [] Neck: Normal range of motion, no tenderness, supple, no stridor. [] Cardiovascular:Heart rate regular rhythm, no murmur [] Lungs & Thorax: Bilateral breath sounds clear to auscultation [] Abdomen: Bowel sounds normal, soft, no tenderness, no masses, no pulsatile masses. [] Skin: Warm, dry, no erythema, no rash. [] Back: No tenderness, no CVA tenderness. [] Extremities: Right upper extremity, right proximal wrist pain, tenderness and swelling. No gross deformities. Pain present on for range of motion. No skin tear noted.[] Psychologic: Affect normal, judgement normal, mood normal. [] Current Patient Data Vital Signs Vital Signs Date Time Temp Pulse Resp B/P (MAP) Pulse Ox O2 Delivery O2 Flow Rate FiO2 01/21/17 02:13 97.7 72 22 128/60 (82) 94 Room Air 97.7 EKG EKG [] Radiology/Procedures Radiology/Procedures [Right wrist: No obvious displaced fracture on preliminary review. ] Course & Med Decision Making Course & Med Decision Making Pertinent Labs and Imaging studies reviewed. (See chart for details) [Patient placed in wrist splint. Transportation arrangements made to return patient home. She is instructed to follow-up with her PCP to review official radiology report and to discuss home safety options. Patient verbalizes understanding and agreement with discharge instructions prior to departure.] Dragon Disclaimer Dragon Disclaimer This electronic medical record was generated, in whole or in part, using a voice recognition dictation system. Departure Departure Impression: Primary Impression: Right wrist injury Disposition: HOME, SELF-CARE Condition: GOOD Patient Instructions: Contusion Additional Instructions: You were evaluated in the emergency department for fall resulting in a right wrist injury. An x-ray was obtained did not show an obvious displaced fracture. Please wear splint for comfort and take ibuprofen for pain. Follow-up with your PCP regarding frequent falls and to reevaluate wrist and to review official radiology report. KENYATTA LOPEZ DO Jan 21, 2017 03:41
--- NOTE | 2017-01-21 07:16 | RAD ---
Portable right wrist, 3 views, 01/21/2017: History: Injury There is a small calcific density present along the posterior aspect of the first row of carpal bones as seen on the lateral view. The appearance suggests an avulsion fracture fragment of indeterminate age. This is a typical location for a triquetral avulsion fracture. There is mild cortical irregularity along the lateral margin of the radicular bone which may be arthritic. There are degenerative changes at the radiocarpal and first CMC joints. No other fracture or dislocation is identified. Arterial calcifications are present. There is soft tissue swelling at the wrist. IMPRESSION: 1. Small cortical avulsion fracture arising from the posterior aspect of the first row of carpal bones, most likely arising from the triquetrum. 2. Mild degenerative changes.
== END 2017-01-21 04:13 | disposition home or self-care (01) ==
LOC: ER 02:13
DX: S69.91XA Unspecified injury of right wrist, hand and finger(s), initial encounter (principal); S00.81XA Abrasion of other part of head, initial encounter; E11.9 Type 2 diabetes mellitus without complications; E03.9 Hypothyroidism, unspecified; I10 Essential (primary) hypertension; G35 Multiple sclerosis; K21.9 Gastro-esophageal reflux disease without esophagitis; W18.39XA Other fall on same level, initial encounter; Y93.89 Activity, other specified; Y99.8 Other external cause status; Y92.89 Other specified places as the place of occurrence of the external cause
CPT/HCPCS: 29125; 73110; 99284-25